=== PATIENT | male | born 1980 | race Caucasian/White ===

== ENCOUNTER 2019-12-10 02:59 | Emergency (ER) | payer OTHER, SELFPAY ==
[2019-12-10 03:00] VITALS: BP 149/72; PULSE 76; RESP 17; TEMP 36.7; O2SAT 98; BMI 38.3
--- NOTE | 2019-12-10 03:03 | ED.RN ---
CALLED FOR EKG PER RN REQUEST, PULLED OLD EKGS FOR
--- NOTE | 2019-12-10 03:29 | EKG12_ITS ---
Test Reason : CP Blood Pressure : / mmHG Vent. Rate : 078 BPM Atrial Rate : 078 BPM P-R Int : 158 ms QRS Dur : 082 ms QT Int : 356 ms P-R-T Axes : 033 -18 024 degrees QTc Int : 405 ms Normal sinus rhythm Moderate voltage criteria for LVH, may be normal variant Borderline ECG Confirmed by GAL CONNOLLY, DEBI ([id number]), supervising editor trailer RAFAEL GARLAND ([id number]) on 12/12/2019 9:00:56 AM Referred By: FLORENTIN Confirmed By:DEBI SANTO MD
--- NOTE | 2019-12-10 03:30 | ED.VISSUMM ---
- ER Visit Summary Date of Service: 12/10/19 Chief Complaint: Chest pain History of Present Illness: The patient is a 39 M who presents with chest pain that began this morning. Patient states his pain is sharp and over the left parasternal area. Patient states his pain last approximate 1 hour then resolved. Patient states his pain improved when he sat up. Patient admits to some diaphoresis with the pain. Patient denies any nausea or vomiting. Patient denies any shortness of breath. Patient denies any palpitations, lightheadedness, dizziness, or acid reflux. Patient is a diabetic but has no other cardiac risk factors. Physical Examination: Vital signs are stable. Patient is afebrile. Patient is in no acute distress. Oral mucosa is pink and moist. Neck is supple. Trachea is midline. There is no JVD noted. Heart was regular rate and rhythm. Lungs are clear and equal bilaterally. Abdomen is soft. Bowel sounds are normal. There is no tenderness. There is no rebound or guarding noted. Skin is warm dry. Cranial nerves II through XII are intact. There are no focal motor or sensory deficits noted. Extremities are intact. There is no calf tenderness or edema. Test Results: EKG shows normal sinus rhythm with a rate of 78. There are no acute ST or T wave changes. This was unchanged compared to previous EKG dated 11/16/2017. Portable chest x-ray was obtained. There is no acute cardiopulmonary process. CBC, basic metabolic profile, and troponin were obtained were all within normal limits. Emergency Department Course and Treatment: Patient was pain-free on arrival. Patient was given aspirin. Patient had no further episodes of chest pain. Patient has a HEART score of 1. Patient was advised that this is low risk for acute cardiac event. Patient was instructed to follow-up with his primary care physician in 5 to 7 days. Patient understood and was agreeable with the plan. All questions were answered. Disposition: Discharge home Impression: Chest pain This note was generated with [email or web address] dictation software. It may contain incorrect words, spelling, and punctuation that were not noted in review of the chart prior to signing ED Disposition - Plan for ED Patient: Disposition: Home or Assisted Living Diagnosis: Chest pain Instructions: CHEST PAIN, Uncertain Cause Referrals: Diego Ghotra DO [Primary Care Provider] - 3-5 Days
[2019-12-10] MEDS: Aspirin 81 MG TAB.CHEW 324 MG PO (03:33)
[2019-12-10 03:35] VITALS: O2SAT 98
[2019-12-10 03:36] LABS: Absolute Lymphocyte Count 3.43 X10^3/uL (0.83-4.51); Absolute Neutrophil Count 2.5 X10^3/uL (2.0-7.7); Basophil# 0.05 X10^3/uL; Basophil% 0.7 % (0-1); Eosinophils% 4.5 % (0-5); Hematocrit 40.5 % (40-54); Hemoglobin 13.5 g/dL (13.0-16.5); Lymphocyte # 3.43 X10^3/ul (4.0); Lymphocyte % 51.3 % (19-41); Mean Corp Hgb Conc 33.3 g/dL (32-36); Mean Corpuscular Hgb 28.8 pg (27.0-32.0); Mean Corpuscular Volume 86.5 fL (80-94); Mean Platelet Vol. 9.5 fl (6.2-12.0); Monocyte# 0.37 X10^3/uL; Monocyte% 5.5 % (0-10); NRBC Flagged by Analyzer 0 % (0-5); Neutrophil # 2.52 X10^3/uL (2.7-7.7); Neutrophil % 37.9 % (47-70); Platelet Count 240 K/mm3 (150-450); RBC Distribution Width CV 12.6 % (11.6-14.6); RBC Distribution Width SD 39.5 fl (35.1-43.9); Red Blood Count 4.68 M/mm3 (4.6-6.2); White Blood Count 6.7 K/mm3 (4.4-11.0)
--- NOTE | 2019-12-10 03:40 | RAD_ITS ---
HISTORY: CHEST PAIN EXAMINATION/TECHNIQUE: XR Chest 1 View: Portable COMPARISON: None FINDINGS: Cardiac telemetry leads in place. Shallow inspiration. Normal heart size. No vascular congestion, pleural effusion, or pulmonary infiltration. No pneumothorax. The bony thorax appears intact. RAD/Chest 1 View (Portable) IMPRESSION: No acute cardiopulmonary disease. at 0420 Reported and signed by: Hasmukh Justin MD Electronically Signed: Hasmukh Justin, at 4:28 EST Tel , Service support ,
[2019-12-10 03:49] LABS: Anion Gap 6 (5-15); BUN 19 mg/dL (7-18); BUN/Creat Ratio 24.5 RATIO (10-20); Calcium,Total 9.3 mg/dL (8.5-10.1); Chloride 107 mmol/L (98-107); Creatinine, Serum 0.78 mg/dL (0.70-1.30); EST Glomerular Filtration Rate 117 mL/min (>60); Est Glom Filt Rate - Afr Amer 142 mL/min (>60); Estimated Creatinine Clearance 138.18 ml/min; Glucose 105 mg/dL (74-106); Sodium Level 141 mmol/L (136-145)
[2019-12-10 04:39] VITALS: BP 130/62; PULSE 74; RESP 12; O2SAT 100; O2SAT 99
== END 2019-12-10 06:43 | disposition home or self-care (01) ==
PROVIDERS: Emergency Provider Emergency Medicine; PCP Family Medicine
DX: R07.9 Chest pain, unspecified (principal); E11.9 Type 2 diabetes mellitus without complications; E66.9 Obesity, unspecified
CPT/HCPCS: 71045; 80048; 84484; 85025; 93005; 99285; A4216

== ENCOUNTER 2022-12-30 20:10 | Inpatient (IN) | payer OTHER, SELFPAY ==
[2022-12-30 20:12] VITALS: BP 175/76; PULSE 107; RESP 16; TEMP 36.7; O2SAT 99; BMI 59.8
--- NOTE | 2022-12-30 20:31 | EX.ED.DYSGE1 ---
HPI History of Present Illness Chief Complaint: Cellulitis Informant: patient and EMS Narrative Narrative: Patient presents with pain and redness in the right lower extremity. He states he started having discomfort around lunchtime today, he states around 1700 or so there was no abnormal redness, and he presents here between [id number] in extreme pain and redness in his right medial thigh. Denies any injury. No fevers or chills. No chest pain or shortness of breath. States he is a diabetic and lost his left leg due to uncontrolled diabetes, but his sugars have been good lately, in the 100s today. He has some pre-existing superficial wounds on his right lower leg that he has been followed for not currently on any antibiotics. [facility] Medical History (Updated 12/30/22 @ 23:[address] Hiro Brown MD) Below-knee amputation of left lower extremity Charcot's joint Chronic anemia CKD (chronic kidney disease), stage III Diabetes mellitus type 2 in obese Diabetic neuropathy History of osteomyelitis HLD (hyperlipidemia) HTN (hypertension) Morbid obesity Home Medications Adrenal Supplement 1 cap PO DAILY 12/10/19 [History Last Taken Unknown] Cardio Supplement 1 combo PO DAILY 12/10/19 [History Last Taken Unknown] Chromium 2 tab PO BID 12/10/19 [History Last Taken Unknown] Elemental Zinc 1 tab PO DAILY 12/10/19 [History Last Taken Unknown] Magnesium 2 tab PO BID 12/10/19 [History Last Taken Unknown] Novolin 70/30 30 - 35 units SQ QHS 12/10/19 [History Last Taken Unknown] Pantothenic Acid 1 tab PO BID 12/10/19 [History Last Taken Unknown] Potassium 2 tab PO DAILY 12/10/19 [History Last Taken Unknown] cholecalciferol (vitamin D3) 50 mcg (2,000 unit) capsule 2,000 unit PO BID 12/10/19 [History Last Taken Unknown] lisinopril 5 mg tablet 20 mg PO DAILY 12/10/19 [History Last Taken Unknown] amlodipine 10 mg tablet 10 mg PO DAILY 12/30/22 [History Last Taken Unknown] furosemide 40 mg tablet 40 mg PO DAILY 12/30/22 [History Last Taken Unknown] hydralazine 25 mg tablet 25 mg PO BID 12/30/22 [History Last Taken Unknown] Allergy/AdvReac Type Severity Reaction Status Date / Time No Known Allergies Allergy Verified 12/30/22 20:14 Family History other Surgical History (Updated 12/30/22 @ 22:[address] Marline Wilhelm MD) History of surgery on lower extremity Status post left foot surgery Social History (Updated 12/30/22 @ 22:[address] Marline Wilhelm MD) household members: spouse Smoking Status: Former smoker how long ago did patient quit smoking: Quit ~ 15 years prior to current presentation. alcohol intake: never substance use type: does not use ROS ROS ED Constitutional Constitutional ED: Denies chills or fever(s) Eyes Eyes: Denies change in vision or diplopia ENT ENT ED: Denies rhinorrhea or sore throat Cardiovascular Cardiovascular: Denies chest pain or palpitations Respiratory/Chest Respiratory/Chest: Denies cough or dyspnea Gastrointestinal Gastrointestinal: Denies abdominal pain, diarrhea, nausea or vomiting Genitourinary Genitourinary ED: Denies dysuria or hematuria Musculoskeletal Musculoskeletal: Reports extremity pain; Denies back pain or neck pain Integumentary Reports as per HPI, rash and wounds; Denies abscess Neurologic Neurologic: Denies headache(s), paresthesias or weakness Psychiatric Psychiatric: Denies anxiety or suicidal thoughts EXAM Physical Exam Const Vital Signs: 12/30/22 20:12 12/30/22 21:02 12/30/22 22:11 Temperature 98.1 F Temperature Source Oral Pulse Rate 107 H 108 H Respiratory Rate 16 16 Blood Pressure 175/76 H Blood Pressure Mean 109 Pulse Ox 99 95 Oxygen Delivery Method Room Air Room Air Room Air 12/30/22 23:06 12/30/22 23:45 Temperature 97.9 F 98 F Temperature Source Oral Oral Pulse Rate 109 H 101 H Respiratory Rate 19 H 19 H Blood Pressure 165/70 H 162/67 H Blood Pressure Mean 101 98 Pulse Ox 96 93 Oxygen Delivery Method Room Air Room Air Positive well nourished, well developed and obese General Appearance ED: well developed and NAD Nutritional Appearance: obese HEENT Reports moist mucous membranes normocephalic and atraumatic Eyes PERRL and EOMs intact bilaterally Neck full ROM and supple Resp normal respiratory effort and clear to auscultation bilaterally Cardio regular rate, regular rhythm and no murmurs Rate: tachycardic GI non-tender and non-distended Auscultation: normoactive bowel sounds Palpation: soft Back/Spine no CVA tenderness General Back: other FROM Extremity Extremity Narrative: Limited range of motion right lower extremity joints due to pain especially of the knee and thigh/hip. No significant pain with passive range of motion of these joints, short arc. Status post left BKA. Erythema both medial thighs, symmetric appearing, but extremely tender on the right whereas there is no tenderness on the left, blanching bilaterally. No petechia or purpura. Several superficial open wounds that do not progress to the dermis on the right lower leg, both laterally and posteriorly. Medially there is no wound but remnants of 1 that appears to have been healing. Much of this is tender but not as tender as the right medial thigh. No subcutaneous emphysema palpable. However obesity and edema in the right lower extremity limb at this evaluation. There is no necrotic tissue or other abnormal discoloration. Brisk cap refill all toes and palpable dorsalis pedis pulse. General Extremety ED: Yes edema and tenderness; Negative for pulses abnormal General Extremity: edema bilateral lower extremity Details: moderate (w/ peau d'orange appearance of tissues especially in thighs bilaterally); Negative for pulses abnormal Neuro oriented x3, CN's II-XII intact bilaterally and no sensory deficits noted Sensorium / Orientation: awake and alert Motor Exam: strength 5/5 throughout Skin Skin Narrative: Bilateral medial thigh erythema, but very tender on the right. No bullae in this area or petechia or purpura. There superficial wounds right lower leg see above. Not able to feel for any inguinal lymphadenopathy due to abdominal and leg obesity and pannus presence, also with peau d'orange appearance without tenderness. MDM MDM MDM Narrative Medical decision making narrative: Concern is for cellulitis here. He is very tender. There is no palpable subcutaneous emphysema or signs of necrotic tissue. The wounds more distal to this appear chronic and the patient indicates they are, they also do not appear to look bad or necrotic. My concern is how quickly the redness and pain came on and how severe it is. Necrotizing fasciitis was therefore considered, and initially I ordered a septic work-up with blood cultures and treated the patient empirically with Zosyn as well as pain medication. X-rays of the affected areas were obtained, 5 views of the right femur and 3 views of the right tib/fib both on my interpretation show no acute bony abnormalities or subcutaneous gas. Radiology in agreement. I reviewed his labs, he does not have a leukocytosis, leftward shift/bandemia, nor does he have an elevated lactic acid. His blood sugars a little elevated to 88, and he has new renal insufficiency, but the last labs that he had which I reviewed, were in 2019. I reevaluated him clinically. 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 I do not think there is any clear indication at this time for emergent surgical debridement, but the patient is in pain out of proportion to his labs and the exam, sore in order to further evaluate for the possibility of early necrotizing fasciitis, hospitalist and I decided it would be best to obtain a CT of his right lower extremity; this was performed without contrast because of his renal function. I viewed the images, it does appear to be consistent with cellulitis and I see no evidence for gas production. I reviewed the radiologist's interpretation, he is in agreement. Patient did develop some nausea so we treated him with some Zofran. Plan is for admission for further treatment and evaluation. Remained clinically and hemodynamically stable, so after discussion with hospitalist we will admit him to the PCU for close noncritical-care repeat evaluations. History & Record Review Discussion w/independent historian: Patient and Significant other Lab Data Attestation: I reviewed the patient's lab results. Labs: Laboratory Results - last 24 hr 12/30/22 12/30/22 12/30/22 20:40 20:40 20:40 WBC 8.2 RBC 3.51 L Hgb 10.3 L Hct 31.2 L MCV 88.9 MCH 29.3 MCHC 33.0 RDW Std Deviation 43.1 RDW Coeff of Mayra 13.2 Plt Count 387 MPV 9.0 Immature Gran % (Auto) 0.100 Neut % (Auto) 71.5 H Lymph % (Auto) 19.0 [place] % (Auto) 6.0 Eos % (Auto) 2.9 Baso % (Auto) 0.5 Absolute Neuts (auto) 5.9 Absolute Lymphs (auto) 1.56 Nucleated RBC % 0 PT 12.4 INR 1.0 APTT 30.8 Sodium 140 Potassium 5.1 Chloride 110 H Carbon Dioxide 23.0 Anion Gap 7 BUN 43 H Creatinine 2.09 H Estim Creat Clear Calc 36.68 Est GFR (MDRD) Af Amer 45 L Est GFR (MDRD) Non-Af 37 L BUN/Creatinine Ratio 20.6 H Glucose 288 H Lactic Acid Calcium 8.2 L Magnesium Total Bilirubin 0.20 AST 20 ALT 28 Alkaline Phosphatase 77 Total Creatine Kinase 204 Total Protein 5.7 L Albumin 2.0 L Globulin 3.7 Albumin/Globulin Ratio 0.5 L Urine Color Urine Clarity Urine pH Ur Specific [place] Urine Protein Urine Glucose (UA) Urine Ketones Urine Occult Blood Urine Nitrite Urine Bilirubin Urine Urobilinogen Ur Leukocyte Esterase Urine RBC Urine WBC Ur Squamous Epith Cells Urine Bacteria Urine Mucus 12/30/22 12/30/22 12/30/22 20:40 20:40 21:00 WBC RBC Hgb Hct MCV MCH MCHC RDW Std Deviation RDW Coeff of Mayra Plt Count MPV Immature Gran % (Auto) Neut % (Auto) Lymph % (Auto) [place] % (Auto) Eos % (Auto) Baso % (Auto) Absolute Neuts (auto) Absolute Lymphs (auto) Nucleated RBC % PT INR APTT Sodium Potassium Chloride Carbon Dioxide Anion Gap BUN Creatinine Estim Creat Clear Calc Est GFR (MDRD) Af Amer Est GFR (MDRD) Non-Af BUN/Creatinine Ratio Glucose Lactic Acid < 0.1 L Calcium Magnesium 3.9 H Total Bilirubin AST ALT Alkaline Phosphatase Total Creatine Kinase Total Protein Albumin Globulin Albumin/Globulin Ratio Urine Color Yellow Urine Clarity Clear Urine pH 7.0 Ur Specific [place] 1.010 Urine Protein 500 H Urine Glucose (UA) 250 H Urine Ketones Negative Urine Occult Blood 10 H Urine Nitrite Negative Urine Bilirubin Negative Urine Urobilinogen Normal Ur Leukocyte Esterase Negative Urine RBC 0-5 SEEN Urine WBC 0-5 SEEN Ur Squamous Epith Cells 0-5 SEEN Urine Bacteria 1+ Urine Mucus 0 SEEN Radiography Diagnostic Testing: Clinical Impression(s) from Imaging Studies Femur X-Ray 12/30/22 21:15 IMPRESSION: No acute findings. Electronically Signed: Alejandro Schmidt MD at 21:52 EST , Tibia/Fibula X-Ray 12/30/22 21:15 IMPRESSION: No acute bony abnormality. Electronically Signed: Alejandro Schmidt MD at 21:51 EST , Rhythm Strip Rhythm Strip: Sinus Tach Rate: 110 Ectopy: None EKG Initial EKG: Attestation: I personally reviewed and interpreted this EKG as follows: Interpretation: No Acute Injury Pattern and Sinus Tachycardia (Otherwise normal) Discharge Plan Dx/Rx/DC Orders Clinical Impression: Cellulitis of right lower extremity without foot, RADHA (acute kidney injury), Hyperglycemia due to type 2 diabetes mellitus Disposition Disposition: Acute Care Hospital [facility]
[2022-12-30] MEDS: Morphine 4 MG/ML Syringe IV (20:42)
[2022-12-30 20:51] LABS: Absolute Lymphocyte Count 1.56 X10^3/uL (0.83-4.51); Absolute Neutrophil Count 5.9 X10^3/uL (2.0-7.7); Basophil# 0.04 X10^3/uL; Basophil% 0.5 % (0-1); Eosinophil# 0.24 X10^3/uL; Eosinophils% 2.9 % (0-5); Hematocrit 31.2 % (40-54); Hemoglobin 10.3 g/dL (13.0-16.5); Lymphocyte # 1.56 X10^3/ul (0.83-4.51); Mean Corpuscular Hgb 29.3 pg (27.0-32.0); Mean Corpuscular Volume 88.9 fL (80-94); Monocyte# 0.49 X10^3/uL; NRBC Flagged by Analyzer 0 % (0-5); Neutrophil # 5.86 X10^3/uL (2.7-7.7); Neutrophil % 71.5 % (47-70); Platelet Count 387 K/mm3 (150-450); RBC Distribution Width CV 13.2 % (11.6-14.6); RBC Distribution Width SD 43.1 fl (35.1-43.9); Red Blood Count 3.51 M/mm3 (4.6-6.2); White Blood Count 8.2 K/mm3 (4.4-11.0)
[2022-12-30 21:00] LABS: Prothrombin Time (Protime)PT. 12.4 SECONDS (11.7-14.9)
[2022-12-30 21:01] LABS: Partial Thromboplast Time 30.8 Seconds (24.1-36.2)
[2022-12-30 21:09] LABS: ALB/GLOB Ratio 0.5 RATIO (0.9-2.4); AST(SGOT) 20 U/L (15-37); Alanine Aminotransfer ALT/SGPT 28 U/L (16-61); Alkaline Phosphatase 77 U/L (45-117); Anion Gap 7 (5-15); BUN 43 mg/dL (7-18); BUN/Creat Ratio 20.6 RATIO (10-20); CPK Total, Creatine Kinase 204 U/L (39-308); Calcium,Total 8.2 mg/dL (8.5-10.1); Chloride 110 mmol/L (98-107); Creatinine, Serum 2.09 mg/dL (0.70-1.30); EST Glomerular Filtration Rate 37 mL/min (>60); Est Glom Filt Rate - Afr Amer 45 mL/min (>60); Estimated Creatinine Clearance 36.68 ml/min; Globulin 3.7 g/dL (2.2-4.2); Glucose 288 mg/dL (74-106); Potassium 5.1 mmol/L (3.5-5.1); Protein, Total 5.7 g/dL (6.4-8.2); Sodium Level 140 mmol/L (136-145)
[2022-12-30 21:15] LABS: Mucous, Urine 0 SEEN /hpf (<or=2+)
--- NOTE | 2022-12-30 21:15 | RAD_ITS ---
INDICATION: infection/pain EXAMINATION/TECHNIQUE: X-RAY - RIGHT XR Tibia/Fibula 2 Views 2 VIEWS COMPARISON: None. FINDINGS: SOFT TISSUES: No soft tissue swelling or gas. No radiopaque foreign body. Vascular calcifications. BONES/JOINTS: No acute fracture. Joint spaces anatomically aligned. No sclerotic or destructive changes observed. RAD/Tibia & Fibula 2 Views IMPRESSION: No acute bony abnormality. Electronically Signed: Alejandro Schmidt MD at 21:51 EST ,
--- NOTE | 2022-12-30 21:15 | RAD_ITS ---
INDICATION: infection/pain EXAMINATION/TECHNIQUE: X-RAY - RIGHT XR Femur Min 2 Views 2 VIEWS COMPARISON: None. FINDINGS: SOFT TISSUES: No soft tissue swelling or gas. No radiopaque foreign body. BONES/JOINTS: No acute fracture. Joint spaces anatomically aligned. No sclerotic or destructive changes observed. RAD/Femur Min 2 Views IMPRESSION: No acute findings. Electronically Signed: Alejandro Schmidt MD at 21:52 EST ,
[2022-12-30 21:17] LABS: Color, Urine Yellow (Yellow); Glucose, Dipstick 250 mg/dl (Normal); Ketone-Dipstick Negative (Negative); Leukocyte Esterase-Dipstick Negative /ul (Negative); Nitrite-Dipstick Negative (Negative); Occult Blood-Urine 10 /ul (Negative); Protein-Dipstick 500 mg/dl (Negative); Urine Bilirubin Dipstick Negative (Negative); Urine Clarity Clear (Clear); Urine Urobilinogen Normal (Normal)
[2022-12-30] MEDS: Clindamycin 900 MG/50 ML BAG 75 MG IV (21:40)
[2022-12-30 22:06] LABS: Lactic Acid < 0.1 mmol/L (0.4-1.9)
[2022-12-30 22:11] VITALS: PULSE 108; RESP 16; O2SAT 95
[2022-12-30] MEDS: Ondansetron 4 MG/2 ML Vial IV (22:22)
--- NOTE | 2022-12-30 22:32 | CT_ITS ---
INDICATION: infection EXAMINATION: CT BONE - CT Lower Extremity W/O Contrast Injection TECHNIQUE: Helically acquired images were obtained of the right lower extremity. 2-D reformats were performed by the technologist. A radiation dose optimization technique was used for this scan. IV Contrast dosage and agent: None. COMPARISON: None. FINDINGS: SOFT TISSUES: Diffuse circumferential subcutaneous soft tissue edema without well-defined fluid collection or gas formations.. No radiopaque foreign body. BONES/JOINTS: No acute fracture or subluxation. Preservation of the joint spaces. No sclerotic or destructive changes. CT/Extremity Lower without Contra IMPRESSION: Nonspecific and diffuse subcutaneous soft tissue edema/cellulitis of the right lower extremity without gas formation or well-defined abscess.. Necrotizing fasciitis not excluded. Electronically Signed: Alejandro Schmidt MD at 0:47 EST ,
--- NOTE | 2022-12-30 22:33 | PCM.HP.STD ---
HPI - General General Date of Admission: 12/30/22 Date of Service: 12/30/22 Chief Complaint: RLE Cellulitis, chills. HPI Narrative The patient is a 42 y/o M w/ PMHx: Former tobacco use, Diabetes mellitus type II with diabetic neuropathy, Charcot's joint, Morbid Obesity, Hx Diabetic foot infection with Hx osteomyelitis who presents to the [facility] ED on 12/30/22 with history onset right lower extremity discomfort starting around noon with the pain worsening at approximately 8 PM with onset of redness specifically noted in his right medial thigh with no associated fevers or chills progressively worsening with ongoing superficial wounds to the right lower extremity prompting ED evaluation. Patient does report that his blood sugars have been improved as of late and usually in the 100 range. He currently reports 10/10 pain worse with any palpation. In the ED upon evaluation he does report having mild nausea and sensation that he might need to throw up. He is laying on his side initially complaining of back spasms and his is massaging his back which seems to be helping. Work-up in the ED included T98.1, heart rate 107, BP 175/76, respiratory rate 16, 99% on room air, CBC with WBC 8.2, hemoglobin 10.3, MCV 88.9, platelet 327 without marked shift, unremarkable coags, CMP with chloride 110, BUN/creatinine 43/2.09, glucose 288, calcium 8.2, hepatic profile not marked appearing, total creatinine kinase 204, urinalysis pending upon requested evaluation of patient, lactic acid <0.1, plain film of the right lower extremity femur with no acute findings and no evidence of any soft tissue swelling or gas, plain film of the right lower extremity tibia/fibula with no acute bony abnormality or any evidence of soft tissue swelling or gas, blood culture x2 pending per ED, urine culture pending per ED. in the ED patient ministered Zosyn as well as clindamycin and morphine 4 mg IV x1. Discussed appearance of patient with Dr. Brown and agreed CT RLE appropriate given severity of his clinical appearance to assure no surgical needs which is pending upon evaluation. [facility] Medical History (Updated 12/30/22 @ 21:[address] Hiro Brown MD) Below-knee amputation of left lower extremity Charcot's joint Chronic anemia CKD (chronic kidney disease), stage III Diabetes mellitus type 2 in obese Diabetic neuropathy History of osteomyelitis HLD (hyperlipidemia) HTN (hypertension) Morbid obesity Home Medications Adrenal Supplement 1 cap PO DAILY 12/10/19 [History Last Taken Unknown] Cardio Supplement 1 combo PO DAILY 12/10/19 [History Last Taken Unknown] Chromium 2 tab PO BID 12/10/19 [History Last Taken Unknown] Elemental Zinc 1 tab PO DAILY 12/10/19 [History Last Taken Unknown] Magnesium 2 tab PO BID 12/10/19 [History Last Taken Unknown] Novolin 70/30 30 - 35 units SQ QHS 12/10/19 [History Last Taken Unknown] Pantothenic Acid 1 tab PO BID 12/10/19 [History Last Taken Unknown] Potassium 2 tab PO DAILY 12/10/19 [History Last Taken Unknown] cholecalciferol (vitamin D3) 50 mcg (2,000 unit) capsule 2,000 unit PO BID 12/10/19 [History Last Taken Unknown] lisinopril 5 mg tablet 20 mg PO DAILY 12/10/19 [History Last Taken Unknown] amlodipine 10 mg tablet 10 mg PO DAILY 12/30/22 [History Last Taken Unknown] furosemide 40 mg tablet 40 mg PO DAILY 12/30/22 [History Last Taken Unknown] hydralazine 25 mg tablet 25 mg PO BID 12/30/22 [History Last Taken Unknown] Allergy/AdvReac Type Severity Reaction Status Date / Time No Known Allergies Allergy Verified 12/30/22 20:14 other (Patient denies any marked maternal or paternal family Hx including HD, CM, CA, CVA.) Surgical History (Updated 12/30/22 @ 22:[address] Marline Wilhelm MD) History of surgery on lower extremity Status post left foot surgery Social History (Updated 12/30/22 @ 22:[address] Marline Wilhelm MD) household members: spouse Smoking Status: Former smoker how long ago did patient quit smoking: Quit ~ 15 years prior to current presentation. alcohol intake: never substance use type: does not use ROS ROS Narrative Admission Review of Systems: CONSTITUTIONAL: No weight loss, fever, + chills, weakness or fatigue. HEENT: Eyes: No visual loss, blurred vision, double vision or yellow sclerae. Ears, Nose, Throat: No hearing loss, sneezing, congestion, runny nose or sore throat. SKIN: + Bilateral lower extremity redness and irritation however right significantly worse, macerated, right lower extremity superficial diabetic ulcerations, status post left BKA. CARDIOVASCULAR: No chest pain, chest pressure or chest discomfort, palpitations, edema, orthopnea, syncopal events. RESPIRATORY: No shortness of breath, cough or sputum, wheezing, hemoptysis. GASTROINTESTINAL: + anorexia, nausea, No vomiting or diarrhea, abdominal pain, melena, BRBPR. GENITOURINARY: No dysuria, frequency, urgency or retention. NEUROLOGICAL: No headache, dizziness, syncope, paralysis, ataxia, numbness or tingling in the extremities, focal weakness, change in bowel or bladder control, seizure. MUSCULOSKELETAL: + muscle, back pain, joint pain or stiffness. HEMATOLOGIC: + anemia, bleeding or bruising. LYMPHATICS: No enlarged nodes. No history of splenectomy. PSYCHIATRIC: No history of depression or anxiety. ENDOCRINOLOGIC: + reports of sweating, cold or heat intolerance. No polyuria or polydipsia. ALLERGIES: No history of asthma, hives, eczema or rhinitis. Vital Signs Vital Signs Vital Signs: 12/30/22 20:12 12/30/22 21:02 Temperature 98.1 F Temperature Source Oral Pulse Rate 107 H Respiratory Rate 16 Blood Pressure 175/76 H Blood Pressure Mean 109 Pulse Ox 99 Oxygen Delivery Method Room Air Room Air Weight Weight: 337 lb 8.443 oz Body Mass Index (BMI) 59.8 Physical Exam Narrative Physical Examination: General: Awake, alert, oriented x 3 and cooperative, laying in the ED bed, uncomfortable appearing, appears to be having chills. Skin: Normal color, normal turgor, no icterus, no cyanosis except for significant intertrigo in the folds with morbidly obese habitus as well as significant bilateral inner thigh redness more severe to the right lower extremity with significant maceration and tenderness to even superficial touch, warm. HEENT: AT/NC, EOMI, PERRLA, dry MM, no carotid bruits or JVD noted; however, very thickened neck makes evaluation difficult. Lungs: Significantly diminished, distant, mildly increased respiratory rate but no distress, habitus makes evaluation difficult, no rales, ronchi or wheezing. Heart: Tachycardic with regular rhythm; no gallop, rub audible. Abdomen: Soft, morbidly obese, notable intertrigo, no obvious tenderness to palpation, difficult to assess distention given habitus, very distant bowel sounds, no obvious HSM but habitus makes this a very difficult exam. Extremities: No cyanosis, no clubbing, see skin, chronic right lower extremity swelling, status post BKA. Neurological: Patient awake, alert, oriented as noted, cognitive function intact; pupils equally reactive to light and accommodation, cranial nerves II-XII grossly normal, moving all 4 extremities except extremely limited right lower extremity movement secondary to pain elicited, strength accordingly moderately to severely globally decreased. Psychiatric: Affect appears uncomfortable, ill-appearing, no acute evidence of depressive or anxiety feelings. Results Lab / Micro Data Result Diagrams: 12/30/22 20:40 12/30/22 20:40 Labs: Laboratory Results - last 24 hr 12/30/22 20:40: WBC 8.2, RBC 3.51 L, Hgb 10.3 L, Hct 31.2 L, MCV 88.9, MCH 29.3, MCHC 33.0, RDW Std Deviation 43.1, RDW Coeff of Mayra 13.2, Plt Count 387, MPV 9.0, Immature Gran % (Auto) 0.100, Neut % (Auto) 71.5 H, Lymph % (Auto) 19.0, [place] % (Auto) 6.0, Eos % (Auto) 2.9, Baso % (Auto) 0.5, Absolute Neuts (auto) 5.9, Absolute Lymphs (auto) 1.56, Nucleated RBC % 0 12/30/22 20:40: PT 12.4, INR 1.0, APTT 30.8 12/30/22 20:40: Sodium 140, Potassium 5.1, Chloride 110 H, Carbon Dioxide 23.0, Anion Gap 7, BUN 43 H, Creatinine 2.09 H, Estim Creat Clear Calc 36.68, Est GFR (MDRD) Af Amer 45 L, Est GFR (MDRD) Non-Af 37 L, BUN/Creatinine Ratio 20.6 H, Glucose 288 H, Calcium 8.2 L, Total Bilirubin 0.20, AST 20, ALT 28, Alkaline Phosphatase 77, Total Creatine Kinase 204, Total Protein 5.7 L, Albumin 2.0 L, Globulin 3.7, Albumin/Globulin Ratio 0.5 L 12/30/22 20:40: Lactic Acid < 0.1 L Rhythm Strip Rhythm Strip: Sinus Tach Rate: 110 Ectopy: None Radiology Impression Femur X-Ray 12/30/22 21:15 IMPRESSION: No acute findings. Electronically Signed: Alejandro Schmidt MD at 21:52 EST , Tibia/Fibula X-Ray 12/30/22 21:15 IMPRESSION: No acute bony abnormality. Electronically Signed: Alejandro Schmidt MD at 21:51 EST , Assessment & Plan Assessment/Plan (1) Cellulitis of right lower extremity without foot: PLAN: Plan The patient is a 42 y/o M w/ PMHx: Former tobacco use, Diabetes mellitus type II with diabetic neuropathy, Charcot's joint, Morbid Obesity, Hx Diabetic foot infection with Hx osteomyelitis who presents to the [facility] ED on 12/30/22 with history onset right lower extremity discomfort starting around noon with the pain worsening at approximately 8 PM with onset of redness specifically noted in his right medial thigh with no associated fevers or chills progressively worsening with ongoing superficial wounds to the right lower extremity prompting ED evaluation. #1. RLE Extremity Cellulitis complicated by underlying diabetes mellitus type II with chronic diabetic right lower extremity wounds/ulcerations: Will admit to PCU given concerns for rapidity of erythema spread per patient history until CT RLE demonstrates any acute surgically emergent findings then may necessitate higher level of care, if no acute concerning findings on CT RLE then would plan to maintain on IV vancomycin and Zosyn, if any onset of drainage from his open regions will obtain wound culture and wound MRSA screen but upon initial evaluation there is no obvious drainage, plan repeat CBC in AM, continue affected extremity elevation above heart when seated and in bed, monitor erythema outline with VS checks, would also plan to place on heparin drip pending DVT US assesment. #2. RADHA versus Chronic Kidney Disease Stage III, unclear subtype: Admission BUN/Cr 43/2.09, baseline renal function prior had been primarily 0.7-0.8 however this is remote and last noted creatinine 12/10/2019 0.78 thus unclear if this is patient's new baseline or if this is a component of acute kidney injury, will judiciously hydrate, hold nephrotoxic regimen in the interim, obtain FeNa, obtain renal US and repeat BMP in AM. #3. Chronic normocytic anemia: Admission hemoglobin 10.3, baseline prior appears 12-13, will obtain iron panel, ferritin, guaiac, vitamin B12 and folic acid to be cautious, repeat CBC in AM. #4. Diabetes mellitus type II with chronic neuropathy: Hold oral home regimen, continue home insulin regimen, ADA diet, accu checks w/ ISS, hemoglobin A1c pending, nutrition consulted for education and teaching. #5. Hx Charcot joint left ankle with history of prior left foot osteomyelitis now status post left BKA: Patient previously evaluated by Dr. Michael, podiatry with noted 11/16/2017 I&D left diabetic foot wound with an open biopsy of the left fibula which was notable on pathology for rare Staphylococcus with near morales sensitivity aside benzylpenicillin resistant with eventual required left BKA, encourage continued outpatient follow-up and evaluation. #6. Hypertension: Continue home regimen including hydralazine, amlodipine, PRN hydralazine. Temporarily holding lisinopril and Lasix given significant creatinine increased from prior noted with last creatinine noted 12/10/2019 0.78 thus certainly could be patient more chronic renal function at this time but unclear. #7. Hyperlipidemia: Not on statin therapy, defer to outpatient. #8. Former tobacco use: Encourage continued tobacco cessation. #9. Morbid Obesity: Weight loss and lifestyle changes encouraged, nutrition consulted. #10. DVT prophylaxis: Heparin drip pending RLE DVT US. #11. CODE status: Patient does not have healthcare power of substance abuse counselor nor living will in place. present for current discussions. Discussed CODE status at length including difference between FULL code, DNR-CCA and DNR-CC status. Following discussions about the differences in these status, requested very specifically that he be allowed to pass naturally if at this time therefore CODE STATUS DNR CCA, no intubation. Advanced Care Planning Face to Face Time: 16 minutes. Admission Evaluation Time spent evaluating chart, patient history, patient evaluation, care planning and discussion with specialists: 75 minutes. Charges/Coding Visit Charges Inpatient E&M: 37664 Init Hosp L3 Procedures Hospitalists Procedures: 79349 Advncd Care Plan 30 Min
[2022-12-30 23:06] VITALS: BP 165/70; PULSE 109; RESP 19; TEMP 36.6; O2SAT 96
[2022-12-30 23:31] LABS: Bacteria 1+ /hpf (None Seen); Red Blood Cells-Urine 0-5 SEEN /hpf (0-5); Squamous Epithelial Cells - UA 0-5 SEEN /hpf (0-5); White Blood Cells 0-5 SEEN /hpf (0-5)
[2022-12-30 23:35] LABS: Magnesium 3.9 mg/dL (1.6-2.6)
[2022-12-30 23:45] VITALS: BP 162/67; PULSE 101; RESP 19; TEMP 36.6; O2SAT 93
[2022-12-31] VITALS (11 sets, daily range): BP systolic 125–156; BP diastolic 58–89; PULSE 69–106; RESP 17–22; TEMP 36.6–38.8; O2SAT 92–97; BMI 51.5
[2022-12-31] MEDS: 0.9% Normal Saline 1,000 ML 150 ML IV ×3 (01:40→17:51)
[2022-12-31] MEDS: HEPARIN/D5w 25,000 UNITS 25,000 UNITS/250 ML IV.SOLN. 18 UNITS CONT INF (01:41)
[2022-12-31] MEDS: Heparin Injection (Vial) 5,000 UNIT/ML VIAL 11000 UNIT IV (01:44)
[2022-12-31] MEDS: Nystatin Powder 15gm Bottle 1 APPLIC TOPICAL ×4 (01:45→22:24)
[2022-12-31] MEDS: Clindamycin 900 MG/50 ML BAG 75 MG IV ×3 (04:54→22:06)
--- NOTE | 2022-12-31 04:54 | PCM.RX.CS ---
Consult Pharmacy has been consulted to manage selected antiobiotic: Vancomycin Type of Consult: New start Suspected Infection: Skin/Soft tissue Labs: Sodium 140 mmol/L (136-145) 12/30/22 20:40 Potassium 5.1 mmol/L (3.5-5.1) 12/30/22 20:40 Chloride 110 mmol/L (98-107) H 12/30/22 20:40 Carbon Dioxide 23.0 mmol/L (21.0-32.0) 12/30/22 20:40 Anion Gap 7 (5-15) 12/30/22 20:40 BUN 43 mg/dL (7-18) H 12/30/22 20:40 Creatinine 2.09 mg/dL (0.70-1.30) H 12/30/22 20:40 Est GFR (MDRD) Af Amer 45 mL/min (>60) L 12/30/22 20:40 Est GFR (MDRD) Non-Af 37 mL/min (>60) L 12/30/22 20:40 BUN/Creatinine Ratio 20.6 RATIO (10-20) H 12/30/22 20:40 Glucose 288 mg/dL (74-106) H 12/30/22 20:40 Goal Trough: 15-20 mcg/mL Pharmacy Plan for Drug Dosing: Pharmacy Service will continue to monitor and adjust dosing as required. Medications Vancomycin HCl 1,500 mg/ (Sodium Chloride) 530 mls @ 250 mls/hr IV Q12H KATY Discontinued Medications Vancomycin HCl 2,000 mg/ (Sodium Chloride) 540 mls @ 250 mls/hr IV X1 ONE Stop: 12/31/22 03:39 Last Admin: 12/31/22 02:40 Dose: 250 mls/hr Follow-Up Labs: Trough Vancomycin Labs to be done on [date and time ordered]: 01/01 @ 1400
--- NOTE | 2022-12-31 05:55 | VDLE_ITS ---
Reason For Study: LEG PAIN RIGHT LEFT GSV is normal. CFV is compressible, spontaneous, phasic, CFV is compressible, spontaneous, phasic, competent, and demonstrates normal competent and demonstrates normal augmentation. augmentation. FV is compressible, spontaneous, phasic, competent and demonstrates normal augmentation. POP V is compressible, spontaneous, phasic, competent and demonstrates normal augmentation. T/P Trunk is compressible. PTV is compressible. Unable to visualize Rt Lary V. Procedure This is a venous duplex using B-mode, color flow and spectral Doppler. Exam performed portable in patient room. Limited views were obtained due to swelling, body habitus, wounds and patient's inability to tolerate compressions. A preliminary report was called and/or faxed to [facility]. VL/Venous Duplex US, Unilateral Interpretation Summary There is no evidence of right lower extremity deep vein thrombosis. Right great saphenous vein appears patent and compressible segmentally. Right peroneal vein could not be i dentified Technically limited examination secondary to right lower extremity swelling and body habitus and wounds and inability to tolerate compression Normal flow patterns left common femoral vein Ordering Physician: Marline Wilhelm Referring Physician: Diego Ghotra Performed By: Raul Cotter RVT
--- NOTE | 2022-12-31 06:20 | NURSING ---
Pts primary rn aware of positive blood culture results of gram negative rods in 1 out of 4 bottles.
[2022-12-31] MEDS: Insulin Lispro 100 UNIT/ML INSULN.PEN SC ×4 (06:31→22:11)
[2022-12-31 07:10] LABS: Bedside Glucose 277 mg/dL (74-106)
[2022-12-31 07:59] LABS: Absolute Lymphocyte Count 0.57 X10^3/uL (0.83-4.51); Absolute Neutrophil Count 8.6 X10^3/uL (2.0-7.7); Basophil# 0.02 X10^3/uL; Basophil% 0.2 % (0-1); Hematocrit 27.8 % (40-54); Hemoglobin 8.8 g/dL (13.0-16.5); Lymphocyte # 0.57 X10^3/ul (0.83-4.51); Lymphocyte % 5.9 % (19-41); Mean Corp Hgb Conc 31.7 g/dL (32-36); Mean Corpuscular Hgb 28.9 pg (27.0-32.0); Mean Corpuscular Volume 91.4 fL (80-94); Monocyte# 0.41 X10^3/uL; Monocyte% 4.2 % (0-10); NRBC Flagged by Analyzer 0 % (0-5); Neutrophil # 8.63 X10^3/uL (2.7-7.7); Neutrophil % 89.4 % (47-70); POSITIVE DIFFERENTIAL YES; Platelet Count 268 K/mm3 (150-450); RBC Distribution Width CV 13.3 % (11.6-14.6); RBC Distribution Width SD 44.8 fl (35.1-43.9); Red Blood Count 3.04 M/mm3 (4.6-6.2); White Blood Count 9.7 K/mm3 (4.4-11.0)
[2022-12-31 08:10] LABS: Differential Indicated SCAN CRITERIA MET
--- NOTE | 2022-12-31 08:21 | PCM.PN.HOSP ---
Reason for Visit Reason for Visit: Diagnoses Cellulitis of right lower limb (12/30/22) Subjective Subjective Patient is a 50-year-old gentleman with BMI of 51 who presented with pain and redness involving the medial aspect of the right thigh. An assessment of right lower extremity cellulitis made admitted for further inpatient manage Objective Data Objective Data Vital Signs: Vital Signs Temp Pulse Resp BP Pulse Ox O2 Del Method 98.2 F 69 20 H 127/64 H 94 Room Air 12/31/22 06:00 12/31/22 06:00 12/31/22 06:00 12/31/22 06:00 12/31/22 06:00 12/31/22 06:00 Oxygen Delivery Method Room Air Weight: 145 kg Body Mass Index (BMI) 51.5 Intake & Output: Intake and Output for Last 24 Hours 12/29/22 12/30/22 12/31/22 23:59 23:59 23:59 Intake Total 150 / 150 590 / 590 Output Total 0 / 0 Balance 150 / 150 590 / 590 Lab / Micro Data Result Diagrams: 12/31/22 07:45 12/31/22 07:45 Labs: Laboratory Results - last 24 hr 12/30/22 20:40: WBC 8.2, RBC 3.51 L, Hgb 10.3 L, Hct 31.2 L, MCV 88.9, MCH 29.3, MCHC 33.0, RDW Std Deviation 43.1, RDW Coeff of Mayra 13.2, Plt Count 387, MPV 9.0, Immature Gran % (Auto) 0.100, Neut % (Auto) 71.5 H, Lymph % (Auto) 19.0, [place] % (Auto) 6.0, Eos % (Auto) 2.9, Baso % (Auto) 0.5, Absolute Neuts (auto) 5.9, Absolute Lymphs (auto) 1.56, Nucleated RBC % 0 12/30/22 20:40: PT 12.4, INR 1.0, APTT 30.8 12/30/22 20:40: Sodium 140, Potassium 5.1, Chloride 110 H, Carbon Dioxide 23.0, Anion Gap 7, BUN 43 H, Creatinine 2.09 H, Estim Creat Clear Calc 36.68, Est GFR (MDRD) Af Amer 45 L, Est GFR (MDRD) Non-Af 37 L, BUN/Creatinine Ratio 20.6 H, Glucose 288 H, Calcium 8.2 L, Total Bilirubin 0.20, AST 20, ALT 28, Alkaline Phosphatase 77, Total Creatine Kinase 204, Total Protein 5.7 L, Albumin 2.0 L, Globulin 3.7, Albumin/Globulin Ratio 0.5 L 12/30/22 20:40: Lactic Acid < 0.1 L 12/30/22 20:40: Magnesium 3.9 H 12/30/22 21:00: Urine Color Yellow, Urine Clarity Clear, Urine pH 7.0, Ur Specific [place] 1.010, Urine Protein 500 H, Urine Glucose (UA) 250 H, Urine Ketones Negative, Urine Occult Blood 10 H, Urine Nitrite Negative, Urine Bilirubin Negative, Urine Urobilinogen Normal, Ur Leukocyte Esterase Negative, Urine RBC 0-5 SEEN, Urine WBC 0-5 SEEN, Ur Squamous Epith Cells 0-5 SEEN, Urine Bacteria 1+, Urine Mucus 0 SEEN 12/31/22 06:27: POC Glucose 277 H 12/31/22 07:45: WBC 9.7, RBC 3.04 L, Hgb 8.8 L, Hct 27.8 L, MCV 91.4, MCH 28.9, MCHC 31.7 L, RDW Std Deviation 44.8 H, RDW Coeff of Mayra 13.3, Plt Count 268, MPV 9.0, Immature Gran % (Auto) 0.300, Neut % (Auto) 89.4 H, Lymph % (Auto) 5.9 L, [place] % (Auto) 4.2, Eos % (Auto) 0.0, Baso % (Auto) 0.2, Absolute Neuts (auto) 8.6 H, Absolute Lymphs (auto) 0.57 L, Nucleated RBC % 0 Micro: Microbiology 12/30/22 20:45 Blood Culture (Wb) - Right Forearm Blood Culture - Preliminary 12/30/22 20:40 Blood Culture (Wb) - Left Hand Blood Culture - Preliminary Radiography Diagnostic Testing: Radiology Impression Femur X-Ray 12/30/22 21:15 IMPRESSION: No acute findings. Electronically Signed: Alejandro Schmidt MD at 21:52 EST , Tibia/Fibula X-Ray 12/30/22 21:15 IMPRESSION: No acute bony abnormality. Electronically Signed: Alejandro Schmidt MD at 21:51 EST , Lower Extremity CT 12/30/22 22:32 IMPRESSION: Nonspecific and diffuse subcutaneous soft tissue edema/cellulitis of the right lower extremity without gas formation or well-defined abscess.. Necrotizing fasciitis not excluded. Electronically Signed: Alejandro Schmidt MD at 0:47 EST Reading Location ID and State: [facility] / ID Tel , Service support , Rhythm Strip Rhythm Strip: Sinus Tach Rate: 110 Ectopy: None Physical Exam Narrative GENERAL: cooperative HEENT: Atraumatic; normocephalic EYES; Anicteric, Normal Conjunctiva NECK; supple, normal thyroid, RESPIRATORY: Diminished to auscultation CARDIOVASCULAR: Regular S1 S2, GI: soft, normoactive bowel sounds, : No Renal angle tenderness; EXTREMITIES: Left BKA MUSCULOSKELETAL: no muscle wasting NEURO: Awake; no lateralizing signs. SKIN: Erythema and warmth involving the medial aspect of the right lower extremity from the thigh to the ankle PSYCH; Flat affect Assessment & Plan Assessment/Plan (1) Cellulitis of right lower extremity without foot: PLAN: Plan Patient is a 50-year-old gentleman with BMI of 51 who presented with pain and redness involving the medial aspect of the right thigh. An assessment of right lower extremity cellulitis made admitted for further inpatient management 1. Right lower extremity cellulitis ? Patient admitted to a monitored bed started on broad-spectrum antibiotic therapy with vancomycin and Zosyn 2. Acute kidney injury ? Patient creatinine on record from 12/10/2019 was 0.78 creatinine on admission was 2.09 started on IV fluid with subsequent monitoring with daily BMPs ordered. Potential nephrotoxic medications including furosemide and lisinopril held 3. Anemia - Secondary to chronic disorder monitoring H&H and transfuse if patient becomes symptomatic or hemoglobin falls below 7 4. Hypertension - Blood pressure controlled, home medications continued with dose adjustment as needed 5. Diabetes mellitus type II -patient's oral hypoglycemics held. Placed on long acting insulin, Accu-Cheks a.c. and at bedtime and covered with sliding scale insulin 6. Class III obesity with BMI of 51.6 ? Complicating care weight loss advised 7. 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 DVT prophylaxis ? On heparin Time spent in the patient's overall evaluation,decision-making process, review of diagnostic data, adjustment of management, discussion with other providers, nursing nursing and ancillary staff involved in patient's care documentation, 55 Minutes Charges/Coding Visit Charges Inpatient E&M: 90631 [facility] Hosp L3
[2022-12-31 08:31] LABS: Partial Thromboplast Time 132.9 Seconds (24.1-36.2)
[2022-12-31 08:34] LABS: Differential Comment SCANNED
[2022-12-31 08:39] LABS: Vitamin B12 1473 pg/mL (211-911)
[2022-12-31 08:43] LABS: Hemoglobin A1c 7.4 % (3.8-5.6)
[2022-12-31 08:47] LABS: ALB/GLOB Ratio 0.5 RATIO (0.9-2.4); AST(SGOT) 22 U/L (15-37); Alanine Aminotransfer ALT/SGPT 27 U/L (16-61); Albumin, Serum 1.7 g/dL (3.2-5.0); Alkaline Phosphatase 57 U/L (45-117); Anion Gap 8 (5-15); BUN 49 mg/dL (7-18); Calcium,Total 7.9 mg/dL (8.5-10.1); Chloride 109 mmol/L (98-107); Creatinine, Serum 2.72 mg/dL (0.70-1.30); EST Glomerular Filtration Rate 27 mL/min (>60); Est Glom Filt Rate - Afr Amer 33 mL/min (>60); Globulin 3.3 g/dL (2.2-4.2); Glucose 283 mg/dL (74-106); Potassium 5.5 mmol/L (3.5-5.1); Sodium Level 140 mmol/L (136-145)
--- NOTE | 2022-12-31 08:50 | EX.PCM.CON.S ---
Assessment & Plan Assessment/Plan (1) Cellulitis of right lower extremity without foot: PLAN: Plan Did review CT right lower extremity personally. No drainable fluid collection seen. Exam did not reveal any areas of specific fluctuance as well patient has skin diffuse redness with some previously popped blisters on the lateral leigh, patient is erythema does go up to the proximal medial thigh this area is indurated but again no obvious drainable areas. Continue antibiotics per primary. Tameka Plata M.D. Pager: [phone] [facility] [address] [place] [address], Outpatient Pavilion, [address] [place] [id number] Office: [phone] HPI Consult Data Date of Consult: 12/31/22 HPI Narrative Reason for Consultation: Evaluation of the right lower extremity for possible need for I&D HPI Narrative: JASKARAN MOREL, is a 42 M who presents to the ER due to increasing cellulitis and pain in the right lower extremity per patient and family started just yesterday. Patient had previously been having blisters in the right lower extremity that had been popping but they were not red or this painful previously. Patient denies having this previously. Patient CT abdomen pelvis does show diffuse cellulitis not show any obvious areas of fluid collection/abscess. Patient is currently on broad-spectrum antibiotics. [facility] Medical History Below-knee amputation of left lower extremity Charcot's joint Chronic anemia CKD (chronic kidney disease), stage III Diabetes mellitus type 2 in obese Diabetic neuropathy History of osteomyelitis HLD (hyperlipidemia) HTN (hypertension) Morbid obesity Home Medications Magnesium 2 tab PO BID supplement 12/10/19 [History Last Taken Unknown] Novolin 70/30 30 - 35 units SQ QHS diabetes 12/10/19 [History Last Taken Unknown] Pantothenic Acid 1 tab PO BID supplement 12/10/19 [History Last Taken Unknown] Potassium 2 tab PO DAILY supplement 12/10/19 [History Last Taken Unknown] cholecalciferol (vitamin D3) 50 mcg (2,000 unit) capsule 2,000 unit PO BID supplement 12/10/19 [History Last Taken Unknown] lisinopril 5 mg tablet 20 mg PO DAILY 12/10/19 [History Last Taken Unknown] amlodipine 10 mg tablet 10 mg PO DAILY 12/30/22 [History Last Taken Unknown] furosemide 40 mg tablet 40 mg PO DAILY 12/30/22 [History Last Taken Unknown] hydralazine 25 mg tablet 25 mg PO BID 12/30/22 [History Last Taken Unknown] Allergy/AdvReac Type Severity Reaction Status Date / Time metformin AdvReac Abd Verified 12/31/22 01:02 cramps/diarrhea Family History other Surgical History History of surgery on lower extremity Status post left foot surgery Social History (Updated 12/30/22 @ 22:[address] Marline Wilhelm MD) household members: spouse Smoking Status: Former smoker how long ago did patient quit smoking: Quit ~ 15 years prior to current presentation. alcohol intake: never substance use type: does not use ROS Constitutional Constitutional: Denies anorexia Eyes Eyes: Denies loss of central vision ENT HEENT: Denies dysphagia Cardiovascular Cardiovascular: Denies chest pain Respiratory/Chest Respiratory/Chest: Denies cough Gastrointestinal Gastrointestinal: Denies abdominal pain, nausea or vomiting Genitourinary Genitourinary: Denies dysuria Musculoskeletal Musculoskeletal: Reports difficulty walking Integumentary Integumentary: Reports non-healing lesions; Denies jaundice Neurologic Neurologic: Denies focal weakness Psychiatric Psychiatric: Denies depression Hematologic/Lymphatic Hematologic/Lymphatic: Denies easy bleeding Physical Exam Const alert, oriented x3 and no apparent distress HEENT normocephalic Resp normal respiratory effort Cardio Rate: regular rate GI soft to palpation, non-tender and non-distended Extremity Extremity Narrative: Left: BKA, Right lower extremity: cellulitis involving the lower leg and proximal thigh. Patient does have previously popped blisters on the lateral aspect of his calf, area is tender to palpation. Patient does not have tenderness with movement of his toes or ankles, no erythema on the foot. Skin Skin Narrative: Cellulitis/previously popped blisters to the right lower extremity calf and erythema to the proximal medial thigh Neuro CN's II-XII intact bilaterally Psych affect normal Lab / Micro Data Result Diagrams: 12/31/22 07:45 12/31/22 07:45 Labs: Laboratory Results - last 24 hr 12/30/22 20:40: WBC 8.2, RBC 3.51 L, Hgb 10.3 L, Hct 31.2 L, MCV 88.9, MCH 29.3, MCHC 33.0, RDW Std Deviation 43.1, RDW Coeff of Mayra 13.2, Plt Count 387, MPV 9.0, Immature Gran % (Auto) 0.100, Neut % (Auto) 71.5 H, Lymph % (Auto) 19.0, [place] % (Auto) 6.0, Eos % (Auto) 2.9, Baso % (Auto) 0.5, Absolute Neuts (auto) 5.9, Absolute Lymphs (auto) 1.56, Nucleated RBC % 0 12/30/22 20:40: PT 12.4, INR 1.0, APTT 30.8 12/30/22 20:40: Sodium 140, Potassium 5.1, Chloride 110 H, Carbon Dioxide 23.0, Anion Gap 7, BUN 43 H, Creatinine 2.09 H, Estim Creat Clear Calc 36.68, Est GFR (MDRD) Af Amer 45 L, Est GFR (MDRD) Non-Af 37 L, BUN/Creatinine Ratio 20.6 H, Glucose 288 H, Calcium 8.2 L, Total Bilirubin 0.20, AST 20, ALT 28, Alkaline Phosphatase 77, Total Creatine Kinase 204, Total Protein 5.7 L, Albumin 2.0 L, Globulin 3.7, Albumin/Globulin Ratio 0.5 L 12/30/22 20:40: Lactic Acid < 0.1 L 12/30/22 20:40: Magnesium 3.9 H 12/30/22 21:00: Urine Color Yellow, Urine Clarity Clear, Urine pH 7.0, Ur Specific [place] 1.010, Urine Protein 500 H, Urine Glucose (UA) 250 H, Urine Ketones Negative, Urine Occult Blood 10 H, Urine Nitrite Negative, Urine Bilirubin Negative, Urine Urobilinogen Normal, Ur Leukocyte Esterase Negative, Urine RBC 0-5 SEEN, Urine WBC 0-5 SEEN, Ur Squamous Epith Cells 0-5 SEEN, Urine Bacteria 1+, Urine Mucus 0 SEEN 12/31/22 06:27: POC Glucose 277 H 12/31/22 07:45: WBC 9.7, RBC 3.04 L, Hgb 8.8 L, Hct 27.8 L, MCV 91.4, MCH 28.9, MCHC 31.7 L, RDW Std Deviation 44.8 H, RDW Coeff of Mayra 13.3, Plt Count 268, MPV 9.0, Immature Gran % (Auto) 0.300, Neut % (Auto) 89.4 H, Lymph % (Auto) 5.9 L, [place] % (Auto) 4.2, Eos % (Auto) 0.0, Baso % (Auto) 0.2, Absolute Neuts (auto) 8.6 H, Absolute Lymphs (auto) 0.57 L, Nucleated RBC % 0, Differential Comment SCANNED 12/31/22 07:45: Sodium 140, Potassium 5.5 H, Chloride 109 H, Carbon Dioxide 23.0, Anion Gap 8, BUN 49 H, Creatinine 2.72 H, Estim Creat Clear Calc 31.60, Est GFR (MDRD) Af Amer 33 L, Est GFR (MDRD) Non-Af 27 L, BUN/Creatinine Ratio 18.0, Glucose 283 H, Calcium 7.9 L, Total Bilirubin 0.30, AST 22, ALT 27, Alkaline Phosphatase 57, Total Protein 5.0 L, Albumin 1.7 L, Globulin 3.3, Albumin/Globulin Ratio 0.5 L 12/31/22 07:45: Hemoglobin A1c 7.4 H 12/31/22 07:45: Vitamin B12 1473 H 12/31/22 07:45: APTT 132.9 H* Micro: Microbiology 12/30/22 20:45 Blood Culture (Wb) - Right Forearm Blood Culture - Preliminary 12/30/22 20:40 Blood Culture (Wb) - Left Hand Blood Culture - Preliminary Rhythm Strip Rhythm Strip: Sinus Tach Rate: 110 Ectopy: None Radiology Impression Femur X-Ray 12/30/22 21:15 IMPRESSION: No acute findings. Electronically Signed: Alejandro Schmidt MD at 21:52 EST , Tibia/Fibula X-Ray 12/30/22 21:15 IMPRESSION: No acute bony abnormality. Electronically Signed: Alejandro Schmidt MD at 21:51 EST Reading Location ID and State: [facility] / [place] Tel , Service support , Lower Extremity CT 12/30/22 22:32 IMPRESSION: Nonspecific and diffuse subcutaneous soft tissue edema/cellulitis of the right lower extremity without gas formation or well-defined abscess.. Necrotizing fasciitis not excluded. Electronically Signed: Alejandro Schmidt MD at 0:47 EST ,
[2022-12-31 09:31] LABS: Ferritin 141 ng/mL (26-388); Iron 12 ug/dL (65-175); Iron Binding Capacity,Total 185 ug/dL (250-450); PERCENT IRON SATURATION 6.5 % (15.0-55.0)
[2022-12-31] MEDS: 0.9% Saline Lock 10 ML Syringe IV ×2 (10:00→16:37)
[2022-12-31] MEDS: hydrALAZINE 25 MG Tablet PO ×2 (10:00→22:09)
[2022-12-31] MEDS: amLODIPine 10 MG Tablet PO (10:00)
[2022-12-31 12:40] LABS: Bedside Glucose 222 mg/dL (74-106)
[2022-12-31 13:36] LABS: M R Staph aureus DNA By PCR Negative (Negative); Probe Check PASS; Specimen Processing Control PASS; Staph aureus DNA By PCR POSITIVE (Negative)
--- NOTE | 2022-12-31 14:17 | WOUNDNOTE ---
wound photo: right lateral lower leg
--- NOTE | 2022-12-31 15:30 | CASEMGMT ---
RN?CM?MAGNETIC PROSPECTING SUPERVISOR?CM?to room to meet with patient for initial transition planning/care coordination?assessment.?RN?CM?introduced self and role at [facility].? Pt voices understanding and consents to?assessment?at this time.? Pt resting in bed in no distress at this time.?, Kaley Gama, @ bedside. Pt is A/O at this time and answers all questions appropriately.?? Care providers, pharmacy, and demographics verified/updated at this time. PCP: Dr Ghotra Specialists: Gas Roller Operator @ [facility] [facility] Insurance: Pt and state they do not have [employer] [facility]. They state [facility] liaison, has been in to see them. Prescription Benefit:?none Living Will/HPOA:?None LNOK: , Kaley Gama. Living Arrangements: Lives w/ and nephew in 2-story home. FFSU w/ramp entrance. assists w/bathing/dressing and IADL's. Pt manages his own medications. Transportation:?Hire drivers DME: ?States has the following DME:?BSC, sliding board, cane, walker, W/C, BP machine, functioning glucometer w/supplies. ?Pt states no need for further DME at this time.? HHC/SNF: Hx [facility] after amputation and hx of HHC. Pt declines need for HHC . Pt wishes to return home and states has no concerns with going home at time of discharge.? CM?to follow for any discharge planning/needs.? Pt voices no concerns/needs at this time.? Advised pt to ask for?CM?if any questions/concerns/needs arise.? Voices understanding. PLAN:??Home w/spousal support and discharge plans in place. Timbo BSN?RN?CM
[2022-12-31] MEDS: Juven (unflavored) Packet 1 PACKET PO (17:20)
[2022-12-31 17:42] LABS: Partial Thromboplast Time 68.4 Seconds (24.1-36.2)
--- NOTE | 2022-12-31 19:25 | NURSING ---
pt states he might need to be on oxygen b/c he feels SOB. Pt saturation at this time is 93-94% on RA, LS clear, no wheezes/crackles. Pt request to be put on oxygen at this time and this RN placed 2L nc, saturation of 97%. will continue to minitor pt.
[2022-12-31] MEDS: Heparin Injection (Vial) 5,000 UNIT/ML VIAL 5000 UNIT SC (22:10)
[2022-12-31] MEDS: Insulin Human 75/25 Kwickpen 35 UNIT SC (22:12)
[2022-12-31] MEDS: Acetaminophen 325 MG Tablet 650 MG PO (22:20)
[2022-12-31 23:56] LABS: Bedside Glucose 222 mg/dL (74-106)
[2023-01-01] VITALS (9 sets, daily range): BP systolic 133–180; BP diastolic 56–83; PULSE 63–108; RESP 18–22; TEMP 36.5–37; O2SAT 93–97; BMI 54.8
[2023-01-01] MEDS: 0.9% Normal Saline 1,000 ML 150 ML IV ×2 (01:07→09:07)
[2023-01-01 02:51] LABS: Bedside Glucose 207 mg/dL (74-106)
[2023-01-01] MEDS: Clindamycin 900 MG/50 ML BAG 75 MG IV (05:13)
[2023-01-01] MEDS: Heparin Injection (Vial) 5,000 UNIT/ML VIAL 5000 UNIT SC ×2 (05:15→21:55)
[2023-01-01] MEDS: Nystatin Powder 15gm Bottle 1 APPLIC TOPICAL ×2 (05:19→21:58)
[2023-01-01 07:01] LABS: Bedside Glucose 125 mg/dL (74-106)
--- NOTE | 2023-01-01 07:47 | PCM.PN.HOSP ---
Reason for Visit Reason for Visit: Diagnoses Cellulitis of right lower limb (12/30/22) Subjective Subjective Seen admit to less pain involving the right lower extremity compared to when he was first admitted. De-escalated patient antibiotic therapy with discontinuation of clindamycin Objective Data Objective Data Vital Signs: Vital Signs Temp Pulse Resp BP Pulse Ox O2 Del Method O2 Flow Rate 98.3 F 63 18 133/59 H 96 Nasal Cannula 2 01/01/23 04:26 01/01/23 04:26 01/01/23 04:26 01/01/23 04:26 01/01/23 04:26 01/01/23 04:26 01/01/23 04:26 Oxygen Flow Rate (L/min) 2 Oxygen Delivery Method Nasal Cannula Weight: 154.1 kg Body Mass Index (BMI) 54.8 Intake & Output: Intake and Output for Last 24 Hours 12/30/22 12/31/22 01/01/23 23:59 23:59 23:59 Intake Total 150 / 150 5214.65 / 5214.65 1600 / 1600 Output Total 800 / 800 Balance 150 / 150 4414.65 / 4414.65 1600 / 1600 Lab / Micro Data Result Diagrams: 12/31/22 07:45 12/31/22 07:45 Labs: Laboratory Results - last 24 hr 12/31/22 07:45: WBC 9.7, RBC 3.04 L, Hgb 8.8 L, Hct 27.8 L, MCV 91.4, MCH 28.9, MCHC 31.7 L, RDW Std Deviation 44.8 H, RDW Coeff of Mayra 13.3, Plt Count 268, MPV 9.0, Immature Gran % (Auto) 0.300, Neut % (Auto) 89.4 H, Lymph % (Auto) 5.9 L, [place] % (Auto) 4.2, Eos % (Auto) 0.0, Baso % (Auto) 0.2, Absolute Neuts (auto) 8.6 H, Absolute Lymphs (auto) 0.57 L, Nucleated RBC % 0, Differential Comment SCANNED 12/31/22 07:45: Sodium 140, Potassium 5.5 H, Chloride 109 H, Carbon Dioxide 23.0, Anion Gap 8, BUN 49 H, Creatinine 2.72 H, Estim Creat Clear Calc 31.60, Est GFR (MDRD) Af Amer 33 L, Est GFR (MDRD) Non-Af 27 L, BUN/Creatinine Ratio 18.0, Glucose 283 H, Calcium 7.9 L, Total Bilirubin 0.30, AST 22, ALT 27, Alkaline Phosphatase 57, Total Protein 5.0 L, Albumin 1.7 L, Globulin 3.3, Albumin/Globulin Ratio 0.5 L 12/31/22 07:45: Hemoglobin A1c 7.4 H 12/31/22 07:45: Vitamin B12 1473 H 12/31/22 07:45: Iron 12 L, TIBC 185 L, Iron Saturation 6.5 L, Ferritin 141, Folate 41.80 12/31/22 07:45: APTT 132.9 H* 12/31/22 10:38: S.aureus Protein A PCR POSITIVE H, MRSA (PCR) Negative 12/31/22 12:13: POC Glucose 222 H 12/31/22 16:52: APTT 68.4 H 12/31/22 17:16: POC Glucose 207 H 12/31/22 22:02: POC Glucose 222 H 01/01/23 06:27: POC Glucose 125 H Micro: Microbiology 12/30/22 20:45 Blood Culture (Wb) - Right Forearm Blood Culture - Preliminary GNR lactose cabinet worker 12/30/22 20:40 Blood Culture (Wb) - Left Hand Blood Culture - Preliminary GNR lactose cabinet worker Radiography Diagnostic Testing: Radiology Impression Venous Doppler Study 12/31/22 05:55 Interpretation Summary There is no evidence of right lower extremity deep vein thrombosis. Right great saphenous vein appears patent and compressible segmentally. Right peroneal vein could not be identified Technically limited examination secondary to right lower extremity swelling and body habitus and wounds and inability to tolerate compression Normal flow patterns left common femoral vein Ordering Physician: Marline Wilhelm Referring Physician: Diego Ghotra Performed By: Raul Cotter RVT Rhythm Strip Rhythm Strip: Sinus Tach Rate: 110 Ectopy: None Physical Exam Narrative GENERAL: cooperative HEENT: Atraumatic; normocephalic EYES; Anicteric, Normal Conjunctiva NECK; supple, normal thyroid, RESPIRATORY: Diminished to auscultation CARDIOVASCULAR: Regular S1 S2, GI: soft, normoactive bowel sounds, : No Renal angle tenderness; EXTREMITIES: Left BKA MUSCULOSKELETAL: no muscle wasting NEURO: Awake; no lateralizing signs. SKIN: Erythema and warmth involving the medial aspect of the right lower extremity from the thigh to the ankle PSYCH; Flat affect Assessment & Plan Assessment/Plan (1) Cellulitis of right lower extremity without foot: PLAN: Plan Patient is a 50-year-old gentleman with BMI of 51 who presented with pain and redness involving the medial aspect of the right thigh. An assessment of right lower extremity cellulitis made admitted for further inpatient management 1. Right lower extremity cellulitis ? Patient admitted to a monitored bed started on broad-spectrum antibiotic therapy with clindamycin, vancomycin and Zosyn 01/01/2023;een admit to less pain involving the right lower extremity compared to when he was first admitted. De-escalated patient antibiotic therapy with discontinuation of clindamycin 2. Acute kidney injury ? Patient creatinine on record from 12/10/2019 was 0.78 creatinine on admission was 2.09 started on IV fluid with subsequent monitoring with daily BMPs ordered. Potential nephrotoxic medications including furosemide and lisinopril held 3. Anemia - Secondary to chronic disorder monitoring H&H and transfuse if patient becomes symptomatic or hemoglobin falls below 7 4. Hypertension - Blood pressure controlled, home medications continued with dose adjustment as needed 5. Diabetes mellitus type II -patient's oral hypoglycemics held. Placed on long acting insulin, Accu-Cheks a.c. and at bedtime and covered with sliding scale insulin 6. Class III obesity with BMI of 51.6 ? Complicating care weight loss advised 7. 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 DVT prophylaxis ? On heparin Time spent in the patient's overall evaluation,decision-making process, review of diagnostic data, adjustment of management, discussion with other providers, nursing nursing and ancillary staff involved in patient's care documentation, 40 Minutes
--- NOTE | 2023-01-01 08:14 | PCM.PN.SRG ---
Subjective Subjective Patient seen and examined during AM rounds. Is found sitting up in bed eating breakfast. He reports that his leg feels somewhat better and he is able to move it more freely. Objective Data Objective Data Vital Signs: Vital Signs Temp Pulse Resp BP Pulse Ox O2 Del Method O2 Flow Rate 98.3 F 63 18 133/59 H 96 Nasal Cannula 2 01/01/23 04:26 01/01/23 04:26 01/01/23 04:26 01/01/23 04:26 01/01/23 04:26 01/01/23 04:26 01/01/23 04:26 Oxygen Flow Rate (L/min) 2 Oxygen Delivery Method Nasal Cannula Weight: 339 lb 11.717 oz Body Mass Index (BMI) 54.8 Intake & Output: Intake and Output for Last 24 Hours 12/30/22 12/31/22 01/01/23 23:59 23:59 23:59 Intake Total 150 / 150 5214.65 / 5214.65 1600 / 1600 Output Total 800 / 800 Balance 150 / 150 4414.65 / 4414.65 1600 / 1600 Lab / Micro Data Result Diagrams: 12/31/22 07:45 12/31/22 07:45 Labs: Laboratory Results - last 24 hr 12/31/22 07:45: Differential Comment SCANNED 12/31/22 07:45: Sodium 140, Potassium 5.5 H, Chloride 109 H, Carbon Dioxide 23.0, Anion Gap 8, BUN 49 H, Creatinine 2.72 H, Estim Creat Clear Calc 31.60, Est GFR (MDRD) Af Amer 33 L, Est GFR (MDRD) Non-Af 27 L, BUN/Creatinine Ratio 18.0, Glucose 283 H, Calcium 7.9 L, Total Bilirubin 0.30, AST 22, ALT 27, Alkaline Phosphatase 57, Total Protein 5.0 L, Albumin 1.7 L, Globulin 3.3, Albumin/Globulin Ratio 0.5 L 12/31/22 07:45: Hemoglobin A1c 7.4 H 12/31/22 07:45: Vitamin B12 1473 H 12/31/22 07:45: Iron 12 L, TIBC 185 L, Iron Saturation 6.5 L, Ferritin 141, Folate 41.80 12/31/22 07:45: APTT 132.9 H* 12/31/22 10:38: S.aureus Protein A PCR POSITIVE H, MRSA (PCR) Negative 12/31/22 12:13: POC Glucose 222 H 12/31/22 16:52: APTT 68.4 H 12/31/22 17:16: POC Glucose 207 H 12/31/22 22:02: POC Glucose 222 H 01/01/23 06:27: POC Glucose 125 H Micro: Microbiology 12/30/22 20:45 Blood Culture (Wb) - Right Forearm Blood Culture - Preliminary GNR lactose infusion pharmacist 12/30/22 20:40 Blood Culture (Wb) - Left Hand Blood Culture - Preliminary GNR lactose infusion pharmacist Radiography Diagnostic Testing: Radiology Impression Venous Doppler Study 12/31/22 05:55 Interpretation Summary There is no evidence of right lower extremity deep vein thrombosis. Right great saphenous vein appears patent and compressible segmentally. Right peroneal vein could not be identified Technically limited examination secondary to right lower extremity swelling and body habitus and wounds and inability to tolerate compression Normal flow patterns left common femoral vein Ordering Physician: Marline Wilhelm Referring Physician: Diego Ghotra Performed By: Raul Cotter RVT Rhythm Strip Rhythm Strip: Sinus Tach Rate: 110 Ectopy: None Physical Exam Const oriented x3 and no apparent distress Resp normal respiratory effort Extremity Extremity Narrative: Patient with tense edema of the right lower extremity and particular focus of cellulitis along the right medial thigh. This is tender to palpation and blanchable, but there is no obvious fluctuance or bullae. Patient demonstrates that he is motor intact on command. The lower leg is wrapped with Nehemiah bandages Assessment & Plan Assessment/Plan (1) Cellulitis of right lower extremity without foot: PLAN: Is a 42-year-old male who is admitted for management of right lower extremity cellulitis?particularly along the right medial thigh. Patient reports decreased symptoms of pain and improved movement. On exam the extremity remains tense with edema and significantly cellulitic in the medial thigh compartment. No obvious fluctuance or crepitus are palpated. Patient demonstrates that he is motor intact. Micro results are slowly returning and consistent with lactose fermenting GNR's of the blood and Staph aureus PCR is positive. ? Consider slight elevation of right lower extremity and floating heel on pillows to avoid pressure wounds ? Continue IV antibiotics ? Continue serial extremity exams Charges/Coding Visit Charges Inpatient E&M: 98029 Subs Hosp L2
[2023-01-01] MEDS: hydrALAZINE 25 MG Tablet PO ×2 (09:14→21:54)
[2023-01-01] MEDS: Juven (unflavored) Packet 1 PACKET PO (09:14)
[2023-01-01] MEDS: amLODIPine 10 MG Tablet PO (09:14)
[2023-01-01 11:09] LABS: Absolute Lymphocyte Count 1.36 X10^3/uL (0.83-4.51); Absolute Neutrophil Count 8.3 X10^3/uL (2.0-7.7); Basophil# 0.03 X10^3/uL; Basophil% 0.3 % (0-1); Eosinophil# 0.12 X10^3/uL; Eosinophils% 1.1 % (0-5); Hematocrit 25.7 % (40-54); Hemoglobin 8.3 g/dL (13.0-16.5); Lymphocyte # 1.36 X10^3/ul (0.83-4.51); Mean Corp Hgb Conc 32.3 g/dL (32-36); Mean Corpuscular Hgb 29.3 pg (27.0-32.0); Mean Corpuscular Volume 90.8 fL (80-94); Monocyte# 0.68 X10^3/uL; Monocyte% 6.5 % (0-10); NRBC Flagged by Analyzer 0 % (0-5); Neutrophil # 8.25 X10^3/uL (2.7-7.7); Neutrophil % 78.8 % (47-70); Platelet Count 253 K/mm3 (150-450); RBC Distribution Width CV 13.4 % (11.6-14.6); RBC Distribution Width SD 45.3 fl (35.1-43.9); Red Blood Count 2.83 M/mm3 (4.6-6.2); White Blood Count 10.5 K/mm3 (4.4-11.0)
[2023-01-01 11:25] LABS: Anion Gap 7 (5-15); BUN 62 mg/dL (7-18); BUN/Creat Ratio 17.7 RATIO (10-20); Calcium,Total 7.6 mg/dL (8.5-10.1); Chloride 110 mmol/L (98-107); EST Glomerular Filtration Rate 20 mL/min (>60); Est Glom Filt Rate - Afr Amer 25 mL/min (>60); Estimated Creatinine Clearance 24.56 ml/min; Glucose 206 mg/dL (74-106); Potassium 5.4 mmol/L (3.5-5.1); Sodium Level 137 mmol/L (136-145)
[2023-01-01 12:21] LABS: Bedside Glucose 197 mg/dL (74-106)
[2023-01-01] MEDS: Insulin Lispro 100 UNIT/ML INSULN.PEN SC ×3 (12:46→21:55)
[2023-01-01] MEDS: 0.9% Saline Lock 10 ML Syringe IV ×2 (12:46→17:12)
[2023-01-01 15:02] LABS: Vancomycin, Trough Level 32.5 ug/mL (5.0-15.0)
--- NOTE | 2023-01-01 15:41 | PHA.PHARE_ITS ---
Consult Pharmacy has been consulted to manage selected antiobiotic: Vancomycin Type of Consult: Follow-up Suspected Infection: Skin/Soft tissue Prior Doses of Antibiotics Received/Current Regimen: current dose is vanc 1500mg IV q12h Labs: Sodium 137 mmol/L (136-145) 01/01/23 10:50 Potassium 5.4 mmol/L (3.5-5.1) H 01/01/23 10:50 Chloride 110 mmol/L (98-107) H 01/01/23 10:50 Carbon Dioxide 20.0 mmol/L (21.0-32.0) L 01/01/23 10:50 Anion Gap 7 (5-15) 01/01/23 10:50 BUN 62 mg/dL (7-18) H 01/01/23 10:50 Creatinine 3.50 mg/dL (0.70-1.30) H 01/01/23 10:50 Est GFR (MDRD) Af Amer 25 mL/min (>60) L 01/01/23 10:50 Est GFR (MDRD) Non-Af 20 mL/min (>60) L 01/01/23 10:50 BUN/Creatinine Ratio 17.7 RATIO (10-20) 01/01/23 10:50 Glucose 206 mg/dL (74-106) H 01/01/23 10:50 Vancomycin Trough 32.5 ug/mL (5.0-15.0) H 01/01/23 14:00 Microbiology: Microbiology 12/31/22 10:15 Wound - Leg, Right Gram Stain - Final 12/31/22 10:15 Wound - Leg, Right Wound Culture - Preliminary GNR lactose medical staff credentialing coordinator Gram positive organism 01/01/23 10:42 Stool Stool Occult Blood (ARACELI) - Final 12/30/22 21:00 Urine, Clean Catch Urine Culture - Preliminary Culture exhibits no growth. 12/30/22 20:45 Blood Culture (Wb) - Right Forearm Blood Culture - Preliminary GNR lactose medical staff credentialing coordinator 12/30/22 20:40 Blood Culture (Wb) - Left Hand Blood Culture - Preliminary GNR lactose medical staff credentialing coordinator Weight used for dosin.1 kg Estimated Creatinine Clearance: 38.5ml/min Goal Trough: 15-20 mcg/mL Pharmacy Plan for Drug Dosing: The vanc trough level drawn at 14:00 today (12 hours after the previous dose) was 32.5. This is well above goal range so will discontinue current dose. Will order a random vanc level to be drawn in 24 hours and that level will be used to determine if a dose should be given tomorrow. Of note, the patient's SCr increased to 3.50 today (CrCl = 38.5ml/min using adjusted body weight). The patient's SCr had been 2.72 yesterday and 2.09 two days ago. Will continue to monitor renal function as well. Pharmacy Service will continue to monitor and adjust dosing as required. Follow-Up Labs: Trough Vancomycin - random level Labs to be done on [date and time ordered]: 01/02/23 14:00
[2023-01-01] MEDS: Albuterol 2.5 MG/3 ML VIAL.NEB. INHALATION (17:00)
[2023-01-01] MEDS: Furosemide 40 MG/4 ML Vial IV (17:12)
[2023-01-01] MEDS: Morphine 2 MG/ML Syringe IV (17:13)
[2023-01-01 17:46] LABS: Bedside Glucose 233 mg/dL (74-106)
[2023-01-01] MEDS: Insulin Human 75/25 Kwickpen 35 UNIT SC (21:58)
[2023-01-01 22:06] LABS: Bedside Glucose 269 mg/dL (74-106)
[2023-01-02 03:11] VITALS: BP 150/70; PULSE 72; RESP 18; TEMP 36.9; O2SAT 97
[2023-01-02] MEDS: Nystatin Powder 15gm Bottle 1 APPLIC TOPICAL (05:37)
[2023-01-02] MEDS: Heparin Injection (Vial) 5,000 UNIT/ML VIAL 5000 UNIT SC ×3 (05:37→21:23)
[2023-01-02 06:00] VITALS: BMI 55.2
--- NOTE | 2023-01-02 07:03 | NURSING ---
Blood sugar 68. Pt drank 4 oz juice.
[2023-01-02 07:11] LABS: Absolute Lymphocyte Count 1.65 X10^3/uL (0.83-4.51); Absolute Neutrophil Count 6.5 X10^3/uL (2.0-7.7); Basophil# 0.03 X10^3/uL; Basophil% 0.3 % (0-1); Eosinophil# 0.09 X10^3/uL; Hematocrit 24.6 % (40-54); Hemoglobin 7.9 g/dL (13.0-16.5); Lymphocyte # 1.65 X10^3/ul (0.83-4.51); Lymphocyte % 18.9 % (19-41); Mean Corp Hgb Conc 32.1 g/dL (32-36); Mean Corpuscular Hgb 29.5 pg (27.0-32.0); Mean Corpuscular Volume 91.8 fL (80-94); Mean Platelet Vol. 9.3 fl (6.2-12.0); Monocyte# 0.51 X10^3/uL; Monocyte% 5.8 % (0-10); NRBC Flagged by Analyzer 0 % (0-5); Neutrophil # 6.46 X10^3/uL (2.7-7.7); Neutrophil % 73.9 % (47-70); Platelet Count 257 K/mm3 (150-450); RBC Distribution Width CV 13.2 % (11.6-14.6); Red Blood Count 2.68 M/mm3 (4.6-6.2); White Blood Count 8.8 K/mm3 (4.4-11.0)
[2023-01-02 07:45] LABS: Bedside Glucose 61 mg/dL (74-106)
[2023-01-02 07:45] LABS: AST(SGOT) 14 U/L (15-37); Alanine Aminotransfer ALT/SGPT 28 U/L (16-61); Albumin, Serum 1.4 g/dL (3.2-5.0); Alkaline Phosphatase 85 U/L (45-117); Anion Gap 9 (5-15); BUN 67 mg/dL (7-18); BUN/Creat Ratio 17.1 RATIO (10-20); Bilirubin, Direct 0.19 mg/dL (0.00-0.30); Calcium,Total 8.2 mg/dL (8.5-10.1); Chloride 112 mmol/L (98-107); Creatinine, Serum 3.92 mg/dL (0.70-1.30); EST Glomerular Filtration Rate 18 mL/min (>60); Est Glom Filt Rate - Afr Amer 22 mL/min (>60); Estimated Creatinine Clearance 21.93 ml/min; Glucose 78 mg/dL (74-106); Potassium 4.5 mmol/L (3.5-5.1); Protein, Total 5.4 g/dL (6.4-8.2); Sodium Level 141 mmol/L (136-145)
[2023-01-02 07:46] LABS: Bedside Glucose 66 mg/dL (74-106)
--- NOTE | 2023-01-02 08:04 | US_ITS ---
INDICATION: Renal failure EXAMINATION: Ultrasound US Kidney(s) complete (eg, kidneys and bladder) TECHNIQUE: Martin scale and color doppler images were obtained of the kidneys. COMPARISON: None. FINDINGS: RIGHT KIDNEY: 11.2 x 5.8 x 5.5 cm. There is no hydronephrosis. No shadowing calculus, focal lesion or perinephric collection is demonstrated. LEFT KIDNEY: 10.5 x 5.7 x 5.6 cm. There is no hydronephrosis. No shadowing calculus, focal lesion or perinephric collection is demonstrated. URINARY BLADDER: 248 cc distended volume. Mild diffuse wall thickening up to 4.4 mm. US/Kidney and Bladder IMPRESSION: No hydronephrosis. Electronically Signed: Alejandro Schmidt MD at 17:44 EDT ,
--- NOTE | 2023-01-02 08:07 | PCM.PN.HOSP ---
Reason for Visit Reason for Visit: Diagnoses Cellulitis of right lower limb (12/30/22) Subjective Subjective Patient did request for resumption of his Lasix in view of increasing swelling. 1 dose of 40 mg of IV Lasix given today prior. Patient kidney function however continues to worsen. The combination of Zosyn and vancomycin for his severe cellulitis involving his right lower extremity discontinued. Replaced Zosyn with cefepime. Ordered renal and bladder ultrasound and consultation placed to nephrology Objective Data Objective Data Vital Signs: Vital Signs Temp Pulse Resp BP Pulse Ox O2 Del Method O2 Flow Rate 98.4 F 72 18 150/70 H 97 Nasal Cannula 3 01/02/23 03:11 01/02/23 03:11 01/02/23 03:11 01/02/23 03:11 01/02/23 03:11 01/02/23 03:11 01/02/23 03:11 Oxygen Flow Rate (L/min) 3 Oxygen Delivery Method Nasal Cannula Weight: 155.3 kg Body Mass Index (BMI) 55.2 Intake & Output: Intake and Output for Last 24 Hours 12/31/22 01/01/23 01/03/23 23:59 23:59 00:59 Intake Total 5214.65 / 5214.65 3800 / 3800 350 / 350 Output Total 800 / 800 525 / 525 1600 / 1600 Balance 4414.65 / 4414.65 3275 / 3275 -1250 / -1250 Lab / Micro Data Result Diagrams: 01/02/23 05:50 01/02/23 05:50 Labs: Laboratory Results - last 24 hr 01/01/23 10:50: WBC 10.5, RBC 2.83 L, Hgb 8.3 L, Hct 25.7 L, MCV 90.8, MCH 29.3, MCHC 32.3, RDW Std Deviation 45.3 H, RDW Coeff of Mayra 13.4, Plt Count 253, MPV 9.0, Immature Gran % (Auto) 0.300, Neut % (Auto) 78.8 H, Lymph % (Auto) 13.0 L, [place] % (Auto) 6.5, Eos % (Auto) 1.1, Baso % (Auto) 0.3, Absolute Neuts (auto) 8.3 H, Absolute Lymphs (auto) 1.36, Nucleated RBC % 0 01/01/23 10:50: Sodium 137, Potassium 5.4 H, Chloride 110 H, Carbon Dioxide 20.0 L, Anion Gap 7, BUN 62 H, Creatinine 3.50 H, Estim Creat Clear Calc 24.56, Est GFR (MDRD) Af Amer 25 L, Est GFR (MDRD) Non-Af 20 L, BUN/Creatinine Ratio 17.7, Glucose 206 H, Calcium 7.6 L 01/01/23 12:02: POC Glucose 197 H 01/01/23 14:00: Vancomycin Trough 32.5 H 01/01/23 17:20: POC Glucose 233 H 01/01/23 20:59: POC Glucose 269 H 01/02/23 05:50: WBC 8.8, RBC 2.68 L, Hgb 7.9 L, Hct 24.6 L, MCV 91.8, MCH 29.5, MCHC 32.1, RDW Std Deviation 45.0 H, RDW Coeff of Mayra 13.2, Plt Count 257, MPV 9.3, Immature Gran % (Auto) 0.100, Neut % (Auto) 73.9 H, Lymph % (Auto) 18.9 L, [place] % (Auto) 5.8, Eos % (Auto) 1.0, Baso % (Auto) 0.3, Absolute Neuts (auto) 6.5, Absolute Lymphs (auto) 1.65, Nucleated RBC % 0 01/02/23 05:50: Sodium 141, Potassium 4.5, Chloride 112 H, Carbon Dioxide 20.0 L, Anion Gap 9, BUN 67 H, Creatinine 3.92 H, Estim Creat Clear Calc 21.93, Est GFR (MDRD) Af Amer 22 L, Est GFR (MDRD) Non-Af 18 L, BUN/Creatinine Ratio 17.1, Glucose 78, Calcium 8.2 L, Total Bilirubin 0.40, Direct Bilirubin 0.19, AST 14 L, ALT 28, Alkaline Phosphatase 85, Total Protein 5.4 L, Albumin 1.4 L, Globulin 4.0 01/02/23 06:52: POC Glucose 61 L 01/02/23 07:25: POC Glucose 66 L Micro: Microbiology 12/30/22 20:45 Blood Culture (Wb) - Right Forearm Blood Culture - Final GNR lactose electronics scale tester 12/30/22 20:40 Blood Culture (Wb) - Left Hand Blood Culture - Final Escherichia coli 12/31/22 10:15 Wound - Leg, Right Gram Stain - Final 12/31/22 10:15 Wound - Leg, Right Wound Culture - Preliminary GNR lactose electronics scale tester Gram positive organism 01/01/23 10:42 Stool Stool Occult Blood (ARACELI) - Final 12/30/22 21:00 Urine, Clean Catch Urine Culture - Preliminary Culture exhibits no growth. Rhythm Strip Rhythm Strip: Sinus Tach Rate: 110 Ectopy: None Physical Exam Narrative GENERAL: cooperative HEENT: Atraumatic; normocephalic EYES; Anicteric, Normal Conjunctiva NECK; supple, normal thyroid, RESPIRATORY: Diminished to auscultation CARDIOVASCULAR: Regular S1 S2, GI: soft, normoactive bowel sounds, : No Renal angle tenderness; EXTREMITIES: Left BKA MUSCULOSKELETAL: no muscle wasting NEURO: Awake; no lateralizing signs. SKIN: Erythema and warmth involving the medial aspect of the right lower extremity from the thigh to the ankle PSYCH; Flat affect Assessment & Plan Assessment/Plan (1) Cellulitis of right lower extremity without foot: PLAN: Plan Patient is a 50-year-old gentleman with BMI of 51 who presented with pain and redness involving the medial aspect of the right thigh. An assessment of right lower extremity cellulitis made admitted for further inpatient management 1. Right lower extremity cellulitis ? Patient admitted to a monitored bed started on broad-spectrum antibiotic therapy with clindamycin, vancomycin and Zosyn 01/01/2023;seen admit to less pain involving the right lower extremity compared to when he was first admitted. De-escalated patient antibiotic therapy with discontinuation of clindamycin ? 01/02/2023. Zosyn discontinued replaced with cefepime in view of worsening kidney function 2. Acute kidney injury ? Patient creatinine on record from 12/10/2019 was 0.78 creatinine on admission was 2.09 started on IV fluid with subsequent monitoring with daily BMPs ordered. Potential nephrotoxic medications including furosemide and lisinopril held -01/02/2023; Patient did request for resumption of his Lasix in view of increasing swelling. 1 dose of 40 mg of IV Lasix given today prior. Patient kidney function however continues to worsen. The combination of Zosyn and vancomycin for his severe cellulitis involving his right lower extremity discontinued. Replaced Zosyn with cefepime. Ordered renal and bladder ultrasound and consultation placed to nephrology 3. Anemia - Secondary to chronic disorder monitoring H&H and transfuse if patient becomes symptomatic or hemoglobin falls below 7 4. Hypertension - Blood pressure controlled, home medications continued with dose adjustment as needed 5. Diabetes mellitus type II -patient's oral hypoglycemics held. Placed on long acting insulin, Accu-Cheks a.c. and at bedtime and covered with sliding scale insulin 6. Class III obesity with BMI of 51.6 ? Complicating care weight loss advised 7. 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 DVT prophylaxis ? On heparin Time spent in the patient's overall evaluation,decision-making process, review of diagnostic data, adjustment of management, discussion with other providers, nursing nursing and ancillary staff involved in patient's care documentation, 55 Minutes Charges/Coding Visit Charges Inpatient E&M: 48847 Subs Hosp L3
[2023-01-02 08:36] LABS: Bedside Glucose 83 mg/dL (74-106)
--- NOTE | 2023-01-02 09:06 | PN.SURG_ITS ---
Subjective Subjective Patient seen and examined during AM rounds. He is found resting in bed ordering from the kitchen. Once he completes this phone call, he reports that his right lower extremity discomfort is markedly improved and that his breathing discomfort (primarily experienced yesterday afternoon) is also improved. He relates that he is awaiting evaluation by a kidney doctor, but believes that his Lasix yesterday helped. Objective Data Objective Data Vital Signs: Vital Signs Temp Pulse Resp BP Pulse Ox O2 Del Method O2 Flow Rate 98.4 F 72 18 150/70 H 97 Nasal Cannula 3 01/02/23 03:11 01/02/23 03:11 01/02/23 03:11 01/02/23 03:11 01/02/23 03:11 01/02/23 03:11 01/02/23 03:11 Oxygen Flow Rate (L/min) 3 Oxygen Delivery Method Nasal Cannula Weight: 342 lb 6.046 oz Body Mass Index (BMI) 55.2 Intake & Output: Intake and Output for Last 24 Hours 12/31/22 01/01/23 01/03/23 23:59 23:59 00:59 Intake Total 5214.65 / 5214.65 3800 / 3800 392.92 / 392.92 Output Total 800 / 800 525 / 525 1600 / 1600 Balance 4414.65 / 4414.65 3275 / 3275 -1207.08 / -1207.08 Lab / Micro Data Result Diagrams: 01/02/23 05:50 01/02/23 05:50 Labs: Laboratory Results - last 24 hr 01/01/23 10:50: WBC 10.5, RBC 2.83 L, Hgb 8.3 L, Hct 25.7 L, MCV 90.8, MCH 29.3, MCHC 32.3, RDW Std Deviation 45.3 H, RDW Coeff of Mayra 13.4, Plt Count 253, MPV 9.0, Immature Gran % (Auto) 0.300, Neut % (Auto) 78.8 H, Lymph % (Auto) 13.0 L, [place] % (Auto) 6.5, Eos % (Auto) 1.1, Baso % (Auto) 0.3, Absolute Neuts (auto) 8.3 H, Absolute Lymphs (auto) 1.36, Nucleated RBC % 0 01/01/23 10:50: Sodium 137, Potassium 5.4 H, Chloride 110 H, Carbon Dioxide 20.0 L, Anion Gap 7, BUN 62 H, Creatinine 3.50 H, Estim Creat Clear Calc 24.56, Est GFR (MDRD) Af Amer 25 L, Est GFR (MDRD) Non-Af 20 L, BUN/Creatinine Ratio 17.7, Glucose 206 H, Calcium 7.6 L 01/01/23 12:02: POC Glucose 197 H 01/01/23 14:00: Vancomycin Trough 32.5 H 01/01/23 17:20: POC Glucose 233 H 01/01/23 20:59: POC Glucose 269 H 01/02/23 05:50: WBC 8.8, RBC 2.68 L, Hgb 7.9 L, Hct 24.6 L, MCV 91.8, MCH 29.5, MCHC 32.1, RDW Std Deviation 45.0 H, RDW Coeff of Mayra 13.2, Plt Count 257, MPV 9.3, Immature Gran % (Auto) 0.100, Neut % (Auto) 73.9 H, Lymph % (Auto) 18.9 L, [place] % (Auto) 5.8, Eos % (Auto) 1.0, Baso % (Auto) 0.3, Absolute Neuts (auto) 6.5, Absolute Lymphs (auto) 1.65, Nucleated RBC % 0 01/02/23 05:50: Sodium 141, Potassium 4.5, Chloride 112 H, Carbon Dioxide 20.0 L , Anion Gap 9, BUN 67 H, Creatinine 3.92 H, Estim Creat Clear Calc 21.93, Est GFR (MDRD) Af Amer 22 L, Est GFR (MDRD) Non-Af 18 L, BUN/Creatinine Ratio 17.1, Glucose 78, Calcium 8.2 L, Total Bilirubin 0.40, Direct Bilirubin 0.19, AST 14 L , ALT 28, Alkaline Phosphatase 85, Total Protein 5.4 L, Albumin 1.4 L, Globulin 4.0 01/02/23 06:52: POC Glucose 61 L 01/02/23 07:25: POC Glucose 66 L 01/02/23 08:14: POC Glucose 83 Micro: Microbiology 12/30/22 21:00 Urine, Clean Catch Urine Culture - Final Culture exhibits no growth. 12/30/22 20:45 Blood Culture (Wb) - Right Forearm Blood Culture - Final GNR lactose cell manager 12/30/22 20:40 Blood Culture (Wb) - Left Hand Blood Culture - Final Escherichia coli 12/31/22 10:15 Wound - Leg, Right Gram Stain - Final 12/31/22 10:15 Wound - Leg, Right Wound Culture - Preliminary GNR lactose cell manager Gram positive organism 01/01/23 10:42 Stool Stool Occult Blood (ARACELI) - Final Rhythm Strip Rhythm Strip: Sinus Tach Rate: 110 Ectopy: None Physical Exam Const oriented x3 and no apparent distress Resp normal respiratory effort Resp Narrative: Mildly tachypneic, but improved Extremity Extremity Narrative: Patient with improved of the right lower extremity and particular focus of cellulitis along the right medial thigh. Tenderness of this area is markedly decreased. While it remains blanchable, there is no obvious fluctuance or bull ae. Patient once again, demonstrates that he is motor intact on command. The lower leg is wrapped with Nehemiah bandages Assessment & Plan Assessment/Plan (1) Cellulitis of right lower extremity without foot: PLAN: Is a 42-year-old male who is admitted for management of right lower extremity cellulitis?particularly along the right medial thigh. Patient, again, reports decreased symptoms of pain and improved movement in this affected extremity. On exam, there is decreased edema and cellulitis. No obvious fluctuance or crepitus are palpated. Patient, again, demonstrates that he is motor intact. Micro results confirm E. coli bacteremia. In discussion with patient, he admits to using lettuce wraps to try to help with his lower extremity wounds and reports that he placed these directly atop open wounds. I shared with him that this certainly could represent a source for his infectious issues and strongly discouraged anything like this in the future. ? Continue elevation of right lower extremity and floating heel on pillows to avoid pressure wounds ? Continue IV antibiotics ? Continue serial extremity exams Charges/Coding Visit Charges Inpatient E&M: 42812 Subs Hosp L2
[2023-01-02 09:08] VITALS: BP 145/60; PULSE 79; RESP 18; TEMP 36.7; O2SAT 97
[2023-01-02 09:10] VITALS: PULSE 79
[2023-01-02] MEDS: hydrALAZINE 25 MG Tablet PO ×2 (09:10→21:23)
[2023-01-02] MEDS: Juven (unflavored) Packet 1 PACKET PO ×2 (09:10→16:56)
[2023-01-02] MEDS: amLODIPine 10 MG Tablet PO (09:10)
[2023-01-02 11:51] LABS: Bedside Glucose 141 mg/dL (74-106)
[2023-01-02] MEDS: 0.9% Saline Lock 10 ML Syringe IV (14:01)
[2023-01-02 14:06] LABS: Vancomycin, Random Level 26.4 ug/mL (0.0-15.0)
--- NOTE | 2023-01-02 15:05 | PHA.PHARE_ITS ---
Consult Pharmacy has been consulted to manage selected antiobiotic: Vancomycin Type of Consult: Follow-up Suspected Infection: Skin/Soft tissue Prior Doses of Antibiotics Received/Current Regimen: dose is currently being held Labs: Sodium 141 mmol/L (136-145) 01/02/23 05:50 Potassium 4.5 mmol/L (3.5-5.1) 01/02/23 05:50 Chloride 112 mmol/L (98-107) H 01/02/23 05:50 Carbon Dioxide 20.0 mmol/L (21.0-32.0) L 01/02/23 05:50 Anion Gap 9 (5-15) 01/02/23 05:50 BUN 67 mg/dL (7-18) H 01/02/23 05:50 Creatinine 3.92 mg/dL (0.70-1.30) H 01/02/23 05:50 Est GFR (MDRD) Af Amer 22 mL/min (>60) L 01/02/23 05:50 Est GFR (MDRD) Non-Af 18 mL/min (>60) L 01/02/23 05:50 BUN/Creatinine Ratio 17.1 RATIO (10-20) 01/02/23 05:50 Glucose 78 mg/dL (74-106) 01/02/23 05:50 Vancomycin Trough 32.5 ug/mL (5.0-15.0) H 01/01/23 14:00 Random Vancomycin 26.4 ug/mL (0.0-15.0) H 01/02/23 13:35 Microbiology: Microbiology 12/31/22 10:15 Wound - Leg, Right Gram Stain - Final 12/31/22 10:15 Wound - Leg, Right Wound Culture - Preliminary Escherichia coli Gram positive organism 12/30/22 21:00 Urine, Clean Catch Urine Culture - Final Culture exhibits no growth. 12/30/22 20:45 Blood Culture (Wb) - Right Forearm Blood Culture - Final GNR lactose machine tool technician instructor 12/30/22 20:40 Blood Culture (Wb) - Left Hand Blood Culture - Final Escherichia coli 01/01/23 10:42 Stool Stool Occult Blood (ARACELI) - Final Weight used for dosin.3 kg Estimated Creatinine Clearance: 34.5ml/min Goal Trough: 15-20 mcg/mL Pharmacy Plan for Drug Dosing: The vanc random level drawn at 13:35 today (approx 36 hours after the last dose of 1500mg before it was held) was 26.4. This is still above goal range (>20) so will continue to hold dosing at this time. Repeat another random level in 24 hours. Of note, the patient's SCr favio again to 3.92 today from 3.50 yesterday. Pharmacy Service will continue to monitor and adjust dosing as required. Follow-Up Labs: Trough Vancomycin - random Labs to be done on [date and time ordered]: 01/03/23 14:00
[2023-01-02 16:18] VITALS: BP 155/65; PULSE 96; RESP 18; TEMP 36.8; O2SAT 93
[2023-01-02 17:21] LABS: Bedside Glucose 160 mg/dL (74-106)
[2023-01-02 21:20] VITALS: BP 156/74; PULSE 92; RESP 18; TEMP 37.4; O2SAT 94
[2023-01-02 21:23] VITALS: PULSE 92
[2023-01-02 22:35] LABS: Bedside Glucose 175 mg/dL (74-106)
[2023-01-03] VITALS (8 sets, daily range): BP systolic 135–187; BP diastolic 63–82; PULSE 85–93; RESP 16–20; TEMP 36.7–37.1; O2SAT 94–97; BMI 55.4
[2023-01-03 03:35] LABS: Bedside Glucose 196 mg/dL (74-106)
--- NOTE | 2023-01-03 06:40 | PN.HOSP_ITS ---
Hospitalist Note Hgb has trended down further. Contacted per operations staff specialist security given continued decline. Guiac negative but to be cautious will hold heparin SC regimen for now.
--- NOTE | 2023-01-03 06:40 | PCM.HOSP.N ---
Hospitalist Note Hgb has trended down further. Contacted per staff genetic counselor given continued decline. Guiac negative but to be cautious will hold heparin SC regimen for now.
[2023-01-03 06:41] LABS: Absolute Lymphocyte Count 1.54 X10^3/uL (0.83-4.51); Absolute Neutrophil Count 5.5 X10^3/uL (2.0-7.7); Basophil# 0.06 X10^3/uL; Basophil% 0.8 % (0-1); Eosinophil# 0.14 X10^3/uL; Eosinophils% 1.8 % (0-5); Hematocrit 24.9 % (40-54); Hemoglobin 7.6 g/dL (13.0-16.5); Lymphocyte # 1.54 X10^3/ul (0.83-4.51); Lymphocyte % 19.9 % (19-41); Mean Corp Hgb Conc 30.5 g/dL (32-36); Mean Corpuscular Hgb 28.6 pg (27.0-32.0); Mean Corpuscular Volume 93.6 fL (80-94); Mean Platelet Vol. 9.4 fl (6.2-12.0); Monocyte# 0.47 X10^3/uL; Monocyte% 6.1 % (0-10); NRBC Flagged by Analyzer 0 % (0-5); Neutrophil # 5.47 X10^3/uL (2.7-7.7); Neutrophil % 70.9 % (47-70); Platelet Count 307 K/mm3 (150-450); RBC Distribution Width CV 13.2 % (11.6-14.6); RBC Distribution Width SD 45.4 fl (35.1-43.9); Red Blood Count 2.66 M/mm3 (4.6-6.2); White Blood Count 7.7 K/mm3 (4.4-11.0)
[2023-01-03 07:00] LABS: Anion Gap 9 (5-15); BUN 71 mg/dL (7-18); BUN/Creat Ratio 18.3 RATIO (10-20); Calcium,Total 8.3 mg/dL (8.5-10.1); Chloride 115 mmol/L (98-107); Creatinine, Serum 3.87 mg/dL (0.70-1.30); EST Glomerular Filtration Rate 18 mL/min (>60); Est Glom Filt Rate - Afr Amer 22 mL/min (>60); Estimated Creatinine Clearance 22.21 ml/min; Glucose 198 mg/dL (74-106); Potassium 4.9 mmol/L (3.5-5.1); Sodium Level 144 mmol/L (136-145)
[2023-01-03 07:05] LABS: Bedside Glucose 171 mg/dL (74-106)
--- NOTE | 2023-01-03 08:54 | PN.HOSP_ITS ---
Reason for Visit Reason for Visit: Diagnoses Cellulitis of right lower limb (12/30/22) Subjective Subjective No new issues. Objective Data Objective Data Vital Signs: Vital Signs Temp Pulse Resp BP Pulse Ox O2 Del Method O2 Flow Rate 37.1 C 90 20 H 135/66 H 95 Nasal Cannula 2 01/03/23 03:20 01/03/23 03:20 01/03/23 03:20 01/03/23 03:20 01/03/23 03:20 01/03/23 03:20 01/03/23 03:20 Oxygen Flow Rate (L/min) 2 Oxygen Delivery Method Nasal Cannula Weight: 155.8 kg Body Mass Index (BMI) 55.4 Intake & Output: Intake and Output for Last 24 Hours 01/01/23 01/02/23 01/03/23 22:59 23:59 23:59 Intake Total 240 / 240 Output Total 1200 / 1200 Balance -960 / -960 Lab / Micro Data Result Diagrams: 01/03/23 05:58 01/03/23 05:58 Labs: Laboratory Results - last 24 hr 01/02/23 11:29: POC Glucose 141 H 01/02/23 13:35: Random Vancomycin 26.4 H 01/02/23 16:54: POC Glucose 160 H 01/02/23 21:14: POC Glucose 175 H 01/03/23 03:16: POC Glucose 196 H 01/03/23 05:58: WBC 7.7, RBC 2.66 L, Hgb 7.6 L, Hct 24.9 L, MCV 93.6, MCH 28.6, MCHC 30.5 L, RDW Std Deviation 45.4 H, RDW Coeff of Mayra 13.2, Plt Count 307, MPV 9.4, Immature Gran % (Auto) 0.500, Neut % (Auto) 70.9 H, Lymph % (Auto) 19.9, [place] % (Auto) 6.1, Eos % (Auto) 1.8, Baso % (Auto) 0.8, Absolute Neuts (auto) 5.5, Absolute Lymphs (auto) 1.54, Nucleated RBC % 0 01/03/23 05:58: Sodium 144, Potassium 4.9, Chloride 115 H, Carbon Dioxide 20.0 L , Anion Gap 9, BUN 71 H, Creatinine 3.87 H, Estim Creat Clear Calc 22.21, Est GFR (MDRD) Af Amer 22 L, Est GFR (MDRD) Non-Af 18 L, BUN/Creatinine Ratio 18.3, Glucose 198 H, Calcium 8.3 L 01/03/23 06:43: POC Glucose 171 H Micro: Microbiology 12/31/22 10:15 Wound - Leg, Right Gram Stain - Final 12/31/22 10:15 Wound - Leg, Right Wound Culture - Final Escherichia coli Meth. resistant Staph. aureus Enterococcus faecalis Actinomyces odontolyticus 12/30/22 21:00 Urine, Clean Catch Urine Culture - Final Culture exhibits no growth. 12/30/22 20:45 Blood Culture (Wb) - Right Forearm Blood Culture - Final GNR lactose nurse advocate 12/30/22 20:40 Blood Culture (Wb) - Left Hand Blood Culture - Final Escherichia coli 01/01/23 10:42 Stool Stool Occult Blood (ARACELI) - Final Radiography Diagnostic Testing: Radiology Impression Renal Ultrasound 01/02/23 08:04 IMPRESSION: No hydronephrosis. Electronically Signed: Alejandro Schmidt MD at 17:44 EDT , Rhythm Strip Rhythm Strip: Sinus Tach Rate: 110 Ectopy: None Physical Exam Const alert and no apparent distress HEENT head/scalp atraumatic and moist oral mucous membranes Resp normal respiratory effort, no retractions, no use of accessory muscles and clear to auscultation bilaterally Cardio regular rate, regular rhythm, S1 normal heart sound and S2 normal heart sound GI normal to inspection, nondistended, normoactive bowel sounds, soft to palpation, non-tender and non-distended Extremity Extremity Narrative: legs wrapped--did not remove. Assessment & Plan Assessment/Plan (1) Cellulitis of right lower extremity without foot: PLAN: Right lower extremity cellulitis ? Patient admitted to a monitored bed started on broad-spectrum antibiotic therapy with clindamycin, vancomycin and Zosyn Surgery following in case I+D required 01/01/2023;seen admit to less pain involving the right lower extremity compared to when he was first admitted. De-escalated patient antibiotic therapy with discontinuation of clindamycin ? 01/02/2023. Zosyn discontinued replaced with cefepime in view of worsening kidney function Cx growing: E. coli, MRSA, E. faecais, actinomyces. (2) RADHA (acute kidney injury): PLAN: Acute kidney injury ? Patient creatinine on record from 12/10/2019 was 0.78 creatinine on admission was 2.09 started on IV fluid with subsequent monitoring with daily BMPs ordered. Potential nephrotoxic medications including furosemide and lisinopril held -01/02/2023; Patient did request for resumption of his Lasix in view of increasing swelling. 1 dose of 40 mg of IV Lasix given today prior. Patient kidney function however continues to worsen. The combination of Zosyn and vancomycin for his severe cellulitis involving his right lower extremity discontinued. Replaced Zosyn with cefepime. Ordered renal and bladder ultrasound and consultation placed to nephrology Appreciate nephrology input. Urine studies pending. PLAN: Plan Chronic conditions: * Anemia- Secondary to chronic disorder monitoring H&H and transfuse if patient becomes symptomatic or hemoglobin falls below 7 * Hypertension- Blood pressure controlled, home medications continued with dose adjustment as needed * Diabetes mellitus type II-patient's oral hypoglycemics held. Placed on long acting insulin, Accu-Cheks a.c. and at bedtime and covered with sliding scale insulin. A1c 7.4 * Class III obesity with BMI of 51.6? 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 On heparin Charges/Coding Visit Charges Inpatient E&M: 67658 Subs Hosp L2
[2023-01-03] MEDS: amLODIPine 10 MG Tablet PO (09:34)
[2023-01-03] MEDS: 0.9% Saline Lock 10 ML Syringe IV (09:34)
[2023-01-03] MEDS: Juven (unflavored) Packet 1 PACKET PO ×2 (09:37→16:23)
[2023-01-03] MEDS: hydrALAZINE 25 MG Tablet PO ×2 (09:39→21:40)
--- NOTE | 2023-01-03 09:58 | WOUNDNOTE ---
wound photo: right lower leg
--- NOTE | 2023-01-03 10:45 | CON.PCM.RE_ITS ---
Assessment & Plan Assessment/Plan (1) RADHA (acute kidney injury): (2) Cellulitis of right lower extremity without foot: PLAN: Plan Impression/plan: The patient is a 42-year-old man with past history of type 2 diabetes mellitus complicated by diabetic neuropathy, PAD status post left BKA, hypertension, hyperlipidemia, and morbid obesity. The patient was admitted to the hospital on 12/30/2022 with right lower extremity cellulitis. Nephrology is following for RADHA. Acute kidney injury on chronic kidney disease stage G3a. The patient likely has diabetic kidney disease at baseline. He is most recent serum creatinine from September 06, 2022 was 1.77 mg/dL, estimated GFR 48 mL/min. Differential diagnoses for RADHA is broad at this point. RADHA could be ischemic secondary to ATN related to sepsis or nephrotoxic from use of vancomycin. Another possibility would be interstitial nephritis from prior exposure to piperacillin. RADHA can also be from acute infection related glomerulonephritis. There is no evidence of urinary tract obstruction on renal ultrasound. Agree with holding STEFANY inhibitor and diuretic for now. I will recheck urine indices. We will check complements. C3 can be low with infection related glomerulonephritis. Since renal function has stabilized in the last 24 hours, there is no urgent need for kidney replacement therapy. If renal function fails to improve further, I will discuss alternative to vancomycin for gram-positive bacteria coverage with hospital medicine service. We will continue to monitor renal function, volume status, electrolytes, and acid-base status. Current medications are reviewed and are appropriate dose for his renal functio n. Hypertension. Current BP is reasonably controlled without STEFANY inhibitor or furosemide. Monitor BP on current medications. Acute metabolic acidosis. Serum bicarbonate level is low but stable at 20 mmol/L. Acidosis is likely due to RADHA/CKD. There is no diarrhea. We will follow serum bicarbonate level. There is no need to add sodium bicarbonate supplementation at this point. Anemia. Hemoglobin is low but stable at 7.6 g/dL. There is no role for VANNESSA from nephrology standpoint in the setting of acute kidney injury. Right lower extremity cellulitis. The patient is currently on cefepime and vancomycin. Okay from my standpoint to continue current antimicrobials. However, if renal function fails to stabilize or improve, we may need to find alternative to vancomycin since risk for ATN from vancomycin is higher in this patient. HPI Consult Data Date of Consult: 03/13/23 HPI Narrative Reason for Consultation: RADHA HPI Narrative: JASKARAN MOREL is a 42-year-old man with past history of type 2 diabetes mellitus complicated by diabetic neuropathy, PAD status post left BKA, hypertension, hyperlipidemia, and morbid obesity. The patient was admitted to the hospital on 12/30/2022 with cellulitis of the right lower extremity. Nephrology is asked to see the patient because of acute kidney injury. The patient has a history of CKD although he has not been seen by nephrology. His serum creatinine from 09/06/2022 was 1.77 mg/dL. On admission, serum creatinine was 2.09 mg/dL. Prior to admission, the patient had been on lisinopril and furosemide. Serum creatinine has increased between 12/30/2022 until 01/02/2023 from 2.09 mg/dL up to 3.92 mg/dL. Today, serum creatinine remains elevated but stable at 3.87 mg/dL. Today, the patient denies chest pain, shortness of breath at rest, nausea, vomiting, or diarrhea. He has actually been constipated since admission. There has been no prolonged hypotension since admission. Urinalysis from 12/30/2022 was negative for RBCs or WBCs. The patient does have 3-4+ proteinuria on dipstick. He has hypoalbuminemia. He was treated initially for cellulitis with IV piperac illin/tazobactam and vancomycin. He is currently on vancomycin and cefepime. The patient has not been getting NSAIDs. Renal ultrasound from 01/02/2023 did not show hydronephrosis. Kidney sizes were normal. [facility] Medical History Below-knee amputation of left lower extremity Charcot's joint Chronic anemia CKD (chronic kidney disease), stage III Diabetes mellitus type 2 in obese Diabetic neuropathy History of osteomyelitis HLD (hyperlipidemia) HTN (hypertension) Morbid obesity Home Medications Magnesium 2 tab PO BID supplement 12/10/19 [History Last Taken Unknown] Novolin 70/30 30 - 35 units SQ QHS diabetes 12/10/19 [History Last Taken Un known] Pantothenic Acid 1 tab PO BID supplement 12/10/19 [History Last Taken Unknown] Potassium 2 tab PO DAILY supplement 12/10/19 [History Last Taken Unknown] cholecalciferol (vitamin D3) 50 mcg (2,000 unit) capsule 2,000 unit PO BID supplement 12/10/19 [History Last Taken Unknown] lisinopril 5 mg tablet 20 mg PO DAILY 12/10/19 [History Last Taken Unknown] amlodipine 10 mg tablet 10 mg PO DAILY 12/30/22 [History Last Taken Unknown] furosemide 40 mg tablet 40 mg PO DAILY 12/30/22 [History Last Taken Unknown] hydralazine 25 mg tablet 25 mg PO BID 12/30/22 [History Last Taken Unknown] Allergy/AdvReac Type Severity Reaction Status Date / Time metformin AdvReac Abd Verified 12/31/22 01:02 cramps/diarrhea Family History other Surgical History History of surgery on lower extremity Status post left foot surgery Social History (Updated 12/30/22 @ 22:[address] Marline Wilhelm MD) household members: spouse Smoking Status: Former smoker how long ago did patient quit smoking: Quit ~ 15 years prior to current presentation. alcohol intake: never substance use type: does not use ROS ROS Narrative 08/02 ROS was done and is otherwise noncontributory to the HPI. Physical Exam Narrative General: Awake, alert, oriented x 3 and cooperative HEENT: AT/NC, EOMI, PERRLA, MMM, no carotid bruits or JVD noted Heart: Normal S1, S2, no murmur, no gallop, no rub audible. Lungs: Clear to auscultation anteriorly. Decreased at bases. Abdomen: Soft, morbidly obese, notable intertrigo, no obvious tenderness to palpation, difficult to assess distention given habitus, very distant bowel sounds, no obvious HSM but habitus makes this a very difficult exam. Extremities: No cyanosis, no clubbing, chronic right lower extremity swelling, status post BKA. Neurological: Patient awake, alert, oriented as noted, cognitive function intact; pupils equally reactive to light and accommodation, cranial nerves II- XII grossly normal, moving all 4 extremities except extremely limited right lower extremity movement secondary to pain elicited, strength accordingly moderately to severely globally decreased. Psychiatric: Affect appears uncomfortable, ill-appearing, no acute evidence of depressive or anxiety feelings. Lab / Micro Data Result Diagrams: 01/03/23 05:58 01/03/23 05:58 Labs: Laboratory Results - last 24 hr 01/02/23 11:29: POC Glucose 141 H 01/02/23 13:35: Random Vancomycin 26.4 H 01/02/23 16:54: POC Glucose 160 H 01/02/23 21:14: POC Glucose 175 H 01/03/23 03:16: POC Glucose 196 H 01/03/23 05:58: WBC 7.7, RBC 2.66 L, Hgb 7.6 L, Hct 24.9 L, MCV 93.6, MCH 28.6, MCHC 30.5 L, RDW Std Deviation 45.4 H, RDW Coeff of Mayra 13.2, Plt Count 307, MPV 9.4, Immature Gran % (Auto) 0.500, Neut % (Auto) 70.9 H, Lymph % (Auto) 19.9, [place] % (Auto) 6.1, Eos % (Auto) 1.8, Baso % (Auto) 0.8, Absolute Neuts (auto) 5.5, Absolute Lymphs (auto) 1.54, Nucleated RBC % 0 01/03/23 05:58: Sodium 144, Potassium 4.9, Chloride 115 H, Carbon Dioxide 20.0 L , Anion Gap 9, BUN 71 H, Creatinine 3.87 H, Estim Creat Clear Calc 22.21, Est GFR (MDRD) Af Amer 22 L, Est GFR (MDRD) Non-Af 18 L, BUN/Creatinine Ratio 18.3, Glucose 198 H, Calcium 8.3 L 01/03/23 06:43: POC Glucose 171 H Micro: Microbiology 12/31/22 10:15 Wound - Leg, Right Gram Stain - Final 12/31/22 10:15 Wound - Leg, Right Wound Culture - Final Escherichia coli Meth. resistant Staph. aureus Enterococcus faecalis Actinomyces odontolyticus 12/30/22 21:00 Urine, Clean Catch Urine Culture - Final Culture exhibits no growth. Rhythm Strip Rhythm Strip: Sinus Tach Rate: 110 Ectopy: None Radiology Impression Renal Ultrasound 01/02/23 08:04 IMPRESSION: No hydronephrosis. Electronically Signed: Alejandro Schmidt MD at 17:44 EDT ,
[2023-01-03] MEDS: Insulin Lispro 100 UNIT/ML INSULN.PEN SC ×3 (11:40→21:46)
[2023-01-03 12:05] LABS: Bedside Glucose 245 mg/dL (74-106)
[2023-01-03 14:50] LABS: Vancomycin, Random Level 19.3 ug/mL (0.0-15.0)
--- NOTE | 2023-01-03 15:43 | CHAPLAIN ---
Type of Pastoral Visit _x__ Initial Visit ___ Follow-up Visit ___ On-call Visit ___ General Patient Visit ___ Spiritual Assessment ___ Family Conference ___ Bereavement ___ Rapid Response ___ Code Blue ___ Other (describe below) Pastoral Care Referral From _x__ Patient ___ Family ___ Nurse ___ Physician ___ Linseed Oil Refiner ___ Mechanical Maintenance Engineer ___ Other (describe below) Sacrament/Intervention _x__ Active listening ___ Anointing ___ Cheondoism ___ Bereavement ___ Communion _x__ Radha exploration ___ _x__ Life review _x__ Prayer ___ Reconciliation ___ Sacrament of Sick _x__ Supportive presence ___ Wedding ___ Other (describe below) Pastoral Comments patient is welcoming of visit; pt has a family member and a neighbor in room; pt is talkative and explains his current and multiple health issues; pt has been an amputee and discusses that decision and affect on him; pt is reflective on his coming to terms with his illness and uses radha as a source of support and hope; pt has perspective of whatever God brown; pt is open to prayer support; presence was welcomed and pt expresses thankfulness
[2023-01-03 15:53] LABS: Urine Sodium 53 mmol/L (Not Establ.)
--- NOTE | 2023-01-03 16:31 | PCM.RX.CS ---
Consult Pharmacy has been consulted to manage selected antiobiotic: Vancomycin Type of Consult: Follow-up Suspected Infection: Skin/Soft tissue Labs: Sodium 144 mmol/L (136-145) 01/03/23 05:58 Potassium 4.9 mmol/L (3.5-5.1) 01/03/23 05:58 Chloride 115 mmol/L (98-107) H 01/03/23 05:58 Carbon Dioxide 20.0 mmol/L (21.0-32.0) L 01/03/23 05:58 Anion Gap 9 (5-15) 01/03/23 05:58 BUN 71 mg/dL (7-18) H 01/03/23 05:58 Creatinine 3.87 mg/dL (0.70-1.30) H 01/03/23 05:58 Est GFR (MDRD) Af Amer 22 mL/min (>60) L 01/03/23 05:58 Est GFR (MDRD) Non-Af 18 mL/min (>60) L 01/03/23 05:58 BUN/Creatinine Ratio 18.3 RATIO (10-20) 01/03/23 05:58 Glucose 198 mg/dL (74-106) H 01/03/23 05:58 Vancomycin Trough 32.5 ug/mL (5.0-15.0) H 01/01/23 14:00 Random Vancomycin 19.3 ug/mL (0.0-15.0) H 01/03/23 13:55 Microbiology: Microbiology 12/31/22 10:15 Wound - Leg, Right Gram Stain - Final 12/31/22 10:15 Wound - Leg, Right Wound Culture - Final Escherichia coli Meth. resistant Staph. aureus Enterococcus faecalis Actinomyces odontolyticus 12/30/22 21:00 Urine, Clean Catch Urine Culture - Final Culture exhibits no growth. 12/30/22 20:45 Blood Culture (Wb) - Right Forearm Blood Culture - Final GNR lactose melt supervisor 12/30/22 20:40 Blood Culture (Wb) - Left Hand Blood Culture - Final Escherichia coli 01/01/23 10:42 Stool Stool Occult Blood (ARACELI) - Final Goal Trough: 15-20 mcg/mL Pharmacy Plan for Drug Dosing: VANCOMYCIN LEVEL RECEIVED Current Vancomycin Dose: on hold due to elevated trough/level Number of Doses Received: Vancomycin Level: random level resulted at 19.3 Hours Since Last Dose: 60 hours since last 1500mg dose Renal Function: SrCr 3.87 Renal Function Trend: SrCr improved slightly from 3.92 on 01/02/23 but still increased from 2.09 on 12/31/22 Lab/Micro: Vancomycin Plan/Comments: recommend continuing to hold Vancomycin due to renal function. Will check a random level in the morning of 01/04/23 Pending Level: 01/04/23 at 0800 Pharmacy Service will continue to monitor and adjust dosing as required. Follow-Up Labs: Trough Vancomycin - 01/04/23 at 0800
[2023-01-03 16:46] LABS: Bedside Glucose 219 mg/dL (74-106)
[2023-01-03] MEDS: Nystatin Powder 15gm Bottle 1 APPLIC TOPICAL (21:42)
[2023-01-03] MEDS: Insulin Human 75/25 Kwickpen 35 UNIT SC (21:46)
[2023-01-03 23:21] LABS: Bedside Glucose 280 mg/dL (74-106)
[2023-01-04] VITALS (13 sets, daily range): BP systolic 145–183; BP diastolic 62–84; PULSE 73–92; RESP 16–22; TEMP 36.2–37.2; O2SAT 93–96; BMI 56.1
[2023-01-04] MEDS: Insulin Lispro 100 UNIT/ML INSULN.PEN SC ×4 (06:29→21:50)
[2023-01-04] MEDS: Nystatin Powder 15gm Bottle 1 APPLIC TOPICAL ×2 (06:29→14:59)
[2023-01-04 06:50] LABS: Bedside Glucose 183 mg/dL (74-106)
--- NOTE | 2023-01-04 08:05 | PN.HOSP_ITS ---
Reason for Visit Reason for Visit: Diagnoses Cellulitis of right lower limb (12/30/22) Acute kidney failure, unspecified (12/30/22) Subjective Subjective No events overnight. Objective Data Objective Data Vital Signs: Vital Signs Temp Pulse Resp BP Pulse Ox O2 Del Method O2 Flow Rate 36.2 C L 73 18 145/62 H 93 Room Air 2 01/04/23 06:00 01/04/23 06:00 01/04/23 06:00 01/04/23 06:00 01/04/23 06:00 01/04/23 06:00 01/03/23 09:19 Oxygen Flow Rate (L/min) 2 Oxygen Delivery Method Room Air Weight: 157.8 kg Body Mass Index (BMI) 56.1 Intake & Output: Intake and Output for Last 24 Hours 01/02/23 01/03/23 01/04/23 23:59 23:59 23:59 Intake Total 970 / 970 Output Total 2700 / 2700 100 / 100 Balance -1730 / -1730 -100 / -100 Lab / Micro Data Result Diagrams: 01/04/23 08:05 01/04/23 08:05 Labs: Laboratory Results - last 24 hr 01/03/23 11:38: POC Glucose 245 H 01/03/23 13:55: Random Vancomycin 19.3 H 01/03/23 15:12: Urine Creatinine 52.30 01/03/23 15:12: U Random Total Protein 416.0 H 01/03/23 15:12: Ur Random Sodium 53 01/03/23 16:22: POC Glucose 219 H 01/03/23 21:46: POC Glucose 280 H 01/04/23 06:28: POC Glucose 183 H Micro: Microbiology 12/31/22 10:15 Wound - Leg, Right Gram Stain - Final 12/31/22 10:15 Wound - Leg, Right Wound Culture - Final Escherichia coli Meth. resistant Staph. aureus Enterococcus faecalis Actinomyces odontolyticus 12/30/22 21:00 Urine, Clean Catch Urine Culture - Final Culture exhibits no growth. 12/30/22 20:45 Blood Culture (Wb) - Right Forearm Blood Culture - Final GNR lactose fire prevention engineer 12/30/22 20:40 Blood Culture (Wb) - Left Hand Blood Culture - Final Escherichia coli 01/01/23 10:42 Stool Stool Occult Blood (ARACELI) - Final Rhythm Strip Rhythm Strip: Sinus Tach Rate: 110 Ectopy: None Physical Exam Const alert and no apparent distress Neck no lymphadenopathy Resp normal respiratory effort, no retractions, no use of accessory muscles and clear to auscultation bilaterally Cardio regular rate, regular rhythm, S1 normal heart sound and S2 normal heart sound GI normal to inspection, nondistended, normoactive bowel sounds, soft to palpation, non-tender and non-distended Extremity normal to inspection Assessment & Plan Assessment/Plan (1) Cellulitis of right lower extremity without foot: PLAN: Right lower extremity cellulitis Patient admitted to a monitored bed started on broad-spectrum antibiotic therapy with clindamycin, vancomycin and Zosyn Surgery following in case I+D required 01/01/2023;seen admit to less pain involving the right lower extremity compared to when he was first admitted. De-escalated patient antibiotic therapy with discontinuation of clindamycin 01/02/2023. Zosyn discontinued replaced with cefepime in view of worsening kidney function Cx growing: E. coli, MRSA, E. faecais, actinomyces. Change abx to CTX and linezolid (2) RADHA (acute kidney injury): PLAN: Acute kidney injury May be ATN possibly from vancomycin -01/02/2023; Patient did request for resumption of his Lasix in view of increasing swelling. 1 dose of 40 mg of IV Lasix given today prior. Patient kidney function however continues to worsen. The combination of Zosyn and vancomycin for his severe cellulitis involving his right lower extremity discontinued. Replaced Zosyn with cefepime. Ordered renal and bladder ultrasound and consultation placed to nephrology Appreciate nephrology input. Creatinine improved (3) Anasarca: PLAN: Weight up 12kg from admission. DW ozzy Buck to start furosemide. He recommended 80mg bolus and gtt at 10mg/h. PLAN: Plan Chronic conditions: * Anemia- Secondary to chronic disorder monitoring H&H and transfuse if patient becomes symptomatic or hemoglobin falls below 7 * Hypertension- Blood pressure controlled, home medications continued with dose adjustment as needed * Diabetes mellitus type II-patient's oral hypoglycemics held. Placed on long acting insulin, Accu-Cheks a.c. and at bedtime and covered with sliding scale insulin. A1c 7.4 * Class III obesity with BMI of 51.6? 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 On heparin Charges/Coding Visit Charges Inpatient E&M: 52191 Subs Hosp L2
[2023-01-04 08:50] LABS: Absolute Lymphocyte Count 2.07 X10^3/uL (0.83-4.51); Absolute Neutrophil Count 4.5 X10^3/uL (2.0-7.7); Basophil# 0.05 X10^3/uL; Basophil% 0.7 % (0-1); Hematocrit 27.6 % (40-54); Hemoglobin 8.8 g/dL (13.0-16.5); Lymphocyte # 2.07 X10^3/ul (0.83-4.51); Lymphocyte % 27.6 % (19-41); Mean Corp Hgb Conc 31.9 g/dL (32-36); Mean Corpuscular Hgb 29.2 pg (27.0-32.0); Mean Corpuscular Volume 91.7 fL (80-94); Monocyte# 0.51 X10^3/uL; Monocyte% 6.8 % (0-10); NRBC Flagged by Analyzer 0 % (0-5); Neutrophil # 4.53 X10^3/uL (2.7-7.7); Neutrophil % 60.2 % (47-70); Platelet Count 370 K/mm3 (150-450); RBC Distribution Width CV 13.1 % (11.6-14.6); RBC Distribution Width SD 43.5 fl (35.1-43.9); Red Blood Count 3.01 M/mm3 (4.6-6.2); White Blood Count 7.5 K/mm3 (4.4-11.0)
[2023-01-04 09:24] LABS: Albumin, Serum 1.5 g/dL (3.2-5.0); BUN 72 mg/dL (7-18); BUN/Creat Ratio 20.3 RATIO (10-20); Calcium,Total 8.5 mg/dL (8.5-10.1); Chloride 114 mmol/L (98-107); Creatinine, Serum 3.55 mg/dL (0.70-1.30); EST Glomerular Filtration Rate 20 mL/min (>60); Est Glom Filt Rate - Afr Amer 24 mL/min (>60); Estimated Creatinine Clearance 24.21 ml/min; Glucose 192 mg/dL (74-106); Phosphorus 6.1 mg/dL (2.5-4.9); Potassium 4.7 mmol/L (3.5-5.1); Sodium Level 142 mmol/L (136-145)
[2023-01-04 09:31] LABS: Vancomycin, Random Level 16.3 ug/mL (0.0-15.0)
[2023-01-04] MEDS: Juven (unflavored) Packet 1 PACKET PO ×2 (10:21→16:55)
[2023-01-04] MEDS: hydrALAZINE 25 MG Tablet PO ×2 (10:21→21:50)
[2023-01-04] MEDS: 0.9% Saline Lock 10 ML Syringe IV ×3 (10:22→17:03)
[2023-01-04] MEDS: amLODIPine 10 MG Tablet PO (10:22)
[2023-01-04] MEDS: Ceftriaxone 1 GM/50 ML BAG IV (10:37)
[2023-01-04] MEDS: Linezolid 600 MG 600 MG/300 ML BAG 200 MG IV ×2 (10:41→21:44)
[2023-01-04 11:55] LABS: Bedside Glucose 303 mg/dL (74-106)
[2023-01-04] MEDS: Furosemide 100 MG/10 ML Vial 80 MG IV (14:49)
[2023-01-04] MEDS: Furosemide 500 MG in Empty Viaflex 50 mL 1 EACH CONT INF (14:58)
--- NOTE | 2023-01-04 15:17 | PN.RENAL_ITS ---
Documented by User: PRITI Odonnell 01/04/23 15:31 Subjective Subjective Following for RADHA on probable CKD Patient is resting in bed. Family at bedside. Patient denies any complaints. No nausea, vomiting or diarrhea. Objective Data Objective Data Vital Signs: Vital Signs Temp Pulse Resp BP Pulse Ox O2 Del Method O2 Flow Rate 98.7 F 87 18 158/71 H 95 Room Air 2 01/04/23 14:50 01/04/23 14:50 01/04/23 14:50 01/04/23 14:50 01/04/23 14:50 01/04/23 14:50 01/04/23 08:38 Oxygen Flow Rate (L/min) 2 Oxygen Delivery Method Room Air Weight: 157.8 kg Body Mass Index (BMI) 56.1 Intake & Output: Intake and Output for Last 24 Hours 01/02/23 01/03/23 01/04/23 23:59 23:59 23:59 Intake Total 970 / 970 630 / 630 Output Total 2700 / 2700 825 / 825 Balance -1730 / -1730 -195 / -195 Lab / Micro Data Result Diagrams: 01/04/23 08:05 01/04/23 08:05 Labs: Laboratory Results - last 24 hr 01/03/23 15:12: Urine Creatinine 52.30 01/03/23 15:12: U Random Total Protein 416.0 H 01/03/23 15:12: Ur Random Sodium 53 01/03/23 16:22: POC Glucose 219 H 01/03/23 21:46: POC Glucose 280 H 01/04/23 06:28: POC Glucose 183 H 01/04/23 08:05: Sodium 142, Potassium 4.7, Chloride 114 H, Carbon Dioxide 20.0 L , BUN 72 H, Creatinine 3.55 H, Estim Creat Clear Calc 24.21, Est GFR (MDRD) Af Amer 24 L, Est GFR (MDRD) Non-Af 20 L, BUN/Creatinine Ratio 20.3 H, Glucose 192 H, Calcium 8.5, Phosphorus 6.1 H, Albumin 1.5 L 01/04/23 08:05: WBC 7.5, RBC 3.01 L, Hgb 8.8 L, Hct 27.6 L, MCV 91.7, MCH 29.2, MCHC 31.9 L, RDW Std Deviation 43.5, RDW Coeff of Mayra 13.1, Plt Count 370, MPV 9.0, Immature Gran % (Auto) 0.700, Neut % (Auto) 60.2, Lymph % (Auto) 27.6, [place] % (Auto) 6.8, Eos % (Auto) 4.0, Baso % (Auto) 0.7, Absolute Neuts (auto) 4.5, Absolute Lymphs (auto) 2.07, Nucleated RBC % 0 01/04/23 08:05: Random Vancomycin 16.3 H 01/04/23 11:33: POC Glucose 303 H Micro: Microbiology 12/31/22 10:15 Wound - Leg, Right Gram Stain - Final 12/31/22 10:15 Wound - Leg, Right Wound Culture - Final Escherichia coli Meth. resistant Staph. aureus Enterococcus faecalis Actinomyces odontolyticus 12/30/22 21:00 Urine, Clean Catch Urine Culture - Final Culture exhibits no growth. 12/30/22 20:45 Blood Culture (Wb) - Right Forearm Blood Culture - Final GNR lactose box attacher 12/30/22 20:40 Blood Culture (Wb) - Left Hand Blood Culture - Final Escherichia coli 01/01/23 10:42 Stool Stool Occult Blood (ARACELI) - Final Rhythm Strip Rhythm Strip: Sinus Tach Rate: 110 Ectopy: None Physical Exam Narrative General: Awake, alert, oriented x 3 and cooperative Heart: Normal S1, S2, no murmur, no gallop, no rub audible. Lungs: Clear to auscultation Abdomen: Soft, morbidly obese Extremities: chronic right lower extremity swelling. Status post left BKA. Assessment & Plan Assessment/Plan (1) RADHA (acute kidney injury): (2) Cellulitis of right lower extremity without foot: PLAN: Plan Impression/plan: The patient is a 42-year-old man with past history of type 2 diabetes mellitus complicated by diabetic neuropathy, PAD status post left BKA, hypertension, hyperlipidemia, and morbid obesity. The patient was admitted to the hospital on 12/30/2022 with right lower extremity cellulitis. Nephrology is following for RADHA. - Acute kidney injury on chronic kidney disease stage G3a The patient likely has diabetic kidney disease at baseline. UPCR 8gm. Most recent serum creatinine September 06, 2022 was 1.77 mg/dL, estimated GFR 48 mL/min. Probable baseline serum creatinine 1.7 to 2 mg/dL. Today reviewed with patient importance of good blood sugar control and good blood pressure control as well as avoiding nephrotoxic agents especially NSAIDs to help slow possible CKD progression. Patient reports had taken ibuprofen at home before admission for leg pain. C3, C4 pending Differential diagnoses for RADHA is broad at this point. RADHA could be ischemic secondary to ATN related to sepsis or nephrotoxic from use of vancomycin. Another possibility would be interstitial nephritis from prior exposure to piperacillin. RADHA can also be from acute infection related glomerulonephritis. Renal ultrasound did not show any hydronephrosis Serum creatinine 2.09 mg/dL on admission, increased to 3.92 mg/dL on 01/02 and today creatinine has improved to 3.55 mg/dL. At this time there is no acute indication for BRADLEY LINEBACKER CREWMEMBER. Agree with holding STEFANY inhibitor and diuretic for now. - Current BP is reasonably controlled on Hydralazine and Norvasc. - Serum bicarbonate level is low but stable at 20 mmol/L. Acidosis is likely secondary to RADHA/CKD. There is no diarrhea. We will follow serum bicarbonate level. There is no need to add sodium bicarbonate supplementation at this point. - Hemoglobin is low but stable. There is no role for VANNESSA from nephrology standpoint in the setting of RADHA. - Right lower extremity cellulitis. The patient is currently on linezolid and ceftriaxone Documented by User: Dr. Lianna Roy MD 01/04/23 17:47 Objective Data Lab / Micro Data Result Diagrams: 01/04/23 08:05 01/04/23 08:05 Assessment & Plan Assessment/Plan (1) RADHA (acute kidney injury): (2) Cellulitis of right lower extremity without foot: PLAN: Plan Impression/plan: The patient is a 42-year-old man with past history of type 2 diabetes mellitus complicated by diabetic neuropathy, PAD status post left BKA, hypertension, hyperlipidemia, and morbid obesity. The patient was admitted to the hospital on 12/30/2022 with right lower extremity cellulitis. Nephrology is following for RADHA. - Acute kidney injury on chronic kidney disease stage G3a The patient likely has diabetic kidney disease at baseline. UPCR 8gm. Most recent serum creatinine September 06, 2022 was 1.77 mg/dL, estimated GFR 48 mL/min. Probable baseline serum creatinine 1.7 to 2 mg/dL. Today reviewed with patient importance of good blood sugar control and good blood pressure control as well as avoiding nephrotoxic agents especially NSAIDs to help slow possible CKD progression. Patient reports had taken ibuprofen at home before admission for leg pain. C3, C4 pending Differential diagnoses for RADHA is broad at this point. RADHA could be ischemic secondary to ATN related to sepsis or nephrotoxic from use of vancomycin. Another possibility would be interstitial nephritis from prior exposure to pipe racillin. RADHA can also be from acute infection related glomerulonephritis. Renal ultrasound did not show any hydronephrosis Serum creatinine 2.09 mg/dL on admission, increased to 3.92 mg/dL on 01/02 and today creatinine has improved to 3.55 mg/dL. At this time there is no acute indication for BRADLEY LINEBACKER CREWMEMBER. Agree with holding STEFANY inhibitor and diuretic for now. - Current BP is reasonably controlled on Hydralazine and Norvasc. - Serum bicarbonate level is low but stable at 20 mmol/L. Acidosis is likely secondary to RADHA/CKD. There is no diarrhea. We will follow serum bicarbonate level. There is no need to add sodium bicarbonate supplementation at this point. - Hemoglobin is low but stable. There is no role for VANNESSA from nephrology standpoint in the setting of RADHA. - Right lower extremity cellulitis. The patient is currently on linezolid and ceftriaxone Nephrology attending addendum: The patient seen and examined. Nurse practitioner's note reflects my evaluation and management decision. Renal function has stabilized over the last 24 hours. Agree with using alternative antimicrobial in case the patient has vancomycin induced ATN. Since renal function has stabilized, we can use Lasix to help treat volume overl oad. We will monitor renal function closely while we are diuresing the patient. Nephrology plan discussed with Dr. Tuttle. Garo Paez MD
[2023-01-04] MEDS: hydrALAZINE 20 MG/ML Vial 10 MG IV (17:03)
[2023-01-04 17:40] LABS: Bedside Glucose 253 mg/dL (74-106)
[2023-01-04] MEDS: Insulin Human 75/25 Kwickpen 35 UNIT SC (21:49)
[2023-01-05] VITALS (7 sets, daily range): BP systolic 140–179; BP diastolic 56–68; PULSE 73–86; RESP 16–18; TEMP 36.6–37.3; O2SAT 91–97; BMI 53.6
[2023-01-05 01:06] LABS: Bedside Glucose 243 mg/dL (74-106)
--- NOTE | 2023-01-05 04:07 | PCA ---
RN has been notified of weight differential
[2023-01-05 05:22] LABS: Absolute Lymphocyte Count 1.85 X10^3/uL (0.83-4.51); Absolute Neutrophil Count 3.9 X10^3/uL (2.0-7.7); Basophil# 0.06 X10^3/uL; Basophil% 0.9 % (0-1); Eosinophil# 0.38 X10^3/uL; Eosinophils% 5.7 % (0-5); Hematocrit 24.8 % (40-54); Hemoglobin 7.8 g/dL (13.0-16.5); Lymphocyte # 1.85 X10^3/ul (0.83-4.51); Lymphocyte % 27.5 % (19-41); Mean Corp Hgb Conc 31.5 g/dL (32-36); Mean Corpuscular Hgb 28.4 pg (27.0-32.0); Mean Corpuscular Volume 90.2 fL (80-94); Mean Platelet Vol. 8.6 fl (6.2-12.0); Monocyte# 0.48 X10^3/uL; Monocyte% 7.1 % (0-10); NRBC Flagged by Analyzer 0 % (0-5); Neutrophil # 3.91 X10^3/uL (2.7-7.7); Neutrophil % 58.2 % (47-70); Platelet Count 322 K/mm3 (150-450); RBC Distribution Width CV 12.9 % (11.6-14.6); RBC Distribution Width SD 42.1 fl (35.1-43.9); Red Blood Count 2.75 M/mm3 (4.6-6.2); White Blood Count 6.7 K/mm3 (4.4-11.0)
[2023-01-05 05:47] LABS: Anion Gap 8 (5-15); BUN 77 mg/dL (7-18); BUN/Creat Ratio 23.6 RATIO (10-20); Calcium,Total 8.7 mg/dL (8.5-10.1); Chloride 111 mmol/L (98-107); Creatinine, Serum 3.26 mg/dL (0.70-1.30); EST Glomerular Filtration Rate 22 mL/min (>60); Est Glom Filt Rate - Afr Amer 27 mL/min (>60); Estimated Creatinine Clearance 26.37 ml/min; Glucose 143 mg/dL (74-106); Potassium 4.2 mmol/L (3.5-5.1); Sodium Level 142 mmol/L (136-145)
[2023-01-05] MEDS: Nystatin Powder 15gm Bottle 1 APPLIC TOPICAL ×2 (06:41→22:35)
[2023-01-05 08:16] LABS: Complement C3 172 mg/dL (82-167)
--- NOTE | 2023-01-05 08:29 | PN.HOSP_ITS ---
Reason for Visit Reason for Visit: Diagnoses Cellulitis of right lower limb (12/30/22) Acute kidney failure, unspecified (12/30/22) Generalized edema (12/30/22) Subjective Subjective No events overnight. Does not note any change in his lower extremity edema. Objective Data Objective Data Vital Signs: Vital Signs Temp Pulse Resp BP Pulse Ox O2 Del Method O2 Flow Rate 36.8 C 73 18 140/56 H 95 Room Air 2 01/05/23 03:19 01/05/23 03:19 01/05/23 03:19 01/05/23 03:19 01/05/23 03:19 01/05/23 07:44 01/04/23 08:38 Oxygen Flow Rate (L/min) 2 Oxygen Delivery Method Room Air Weight: 150.6 kg Body Mass Index (BMI) 53.6 Intake & Output: Intake and Output for Last 24 Hours 01/03/23 01/04/23 01/05/23 23:59 23:59 23:59 Intake Total 970 / 970 990 / 990 300 / 300 Output Total 2700 / 2700 3500 / 3500 1075 / 1075 Balance -1730 / -1730 -2510 / -2510 -775 / -775 Lab / Micro Data Result Diagrams: 01/05/23 05:03 01/05/23 05:03 Labs: Laboratory Results - last 24 hr 01/04/23 08:05: Complement C3 172 H, Complement C4 45 H 01/04/23 08:05: Sodium 142, Potassium 4.7, Chloride 114 H, Carbon Dioxide 20.0 L , BUN 72 H, Creatinine 3.55 H, Estim Creat Clear Calc 24.21, Est GFR (MDRD) Af Amer 24 L, Est GFR (MDRD) Non-Af 20 L, BUN/Creatinine Ratio 20.3 H, Glucose 192 H, Calcium 8.5, Phosphorus 6.1 H, Albumin 1.5 L 01/04/23 08:05: WBC 7.5, RBC 3.01 L, Hgb 8.8 L, Hct 27.6 L, MCV 91.7, MCH 29.2, MCHC 31.9 L, RDW Std Deviation 43.5, RDW Coeff of Mayra 13.1, Plt Count 370, MPV 9.0, Immature Gran % (Auto) 0.700, Neut % (Auto) 60.2, Lymph % (Auto) 27.6, Harrison % (Auto) 6.8, Eos % (Auto) 4.0, Baso % (Auto) 0.7, Absolute Neuts (auto) 4.5, Absolute Lymphs (auto) 2.07, Nucleated RBC % 0 01/04/23 08:05: Random Vancomycin 16.3 H 01/04/23 11:33: POC Glucose 303 H 01/04/23 16:52: POC Glucose 253 H 01/04/23 21:49: POC Glucose 243 H 01/05/23 05:03: WBC 6.7, RBC 2.75 L, Hgb 7.8 L, Hct 24.8 L, MCV 90.2, MCH 28.4, MCHC 31.5 L, RDW Std Deviation 42.1, RDW Coeff of Mayra 12.9, Plt Count 322, MPV 8.6, Immature Gran % (Auto) 0.600, Neut % (Auto) 58.2, Lymph % (Auto) 27.5, Harrison % (Auto) 7.1, Eos % (Auto) 5.7 H, Baso % (Auto) 0.9, Absolute Neuts (auto) 3.9, Absolute Lymphs (auto) 1.85, Nucleated RBC % 0 01/05/23 05:03: Sodium 142, Potassium 4.2, Chloride 111 H, Carbon Dioxide 23.0, Anion Gap 8, BUN 77 H, Creatinine 3.26 H, Estim Creat Clear Calc 26.37, Est GFR (MDRD) Af Amer 27 L, Est GFR (MDRD) Non-Af 22 L, BUN/Creatinine Ratio 23.6 H, Glucose 143 H, Calcium 8.7 Micro: Microbiology 12/31/22 10:15 Wound - Leg, Right Gram Stain - Final 12/31/22 10:15 Wound - Leg, Right Wound Culture - Final Escherichia coli Meth. resistant Staph. aureus Enterococcus faecalis Actinomyces odontolyticus 12/30/22 21:00 Urine, Clean Catch Urine Culture - Final Culture exhibits no growth. 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 Afebrile. No respiratory distress. No conversational dyspnea. Resp normal respiratory effort, no retractions, no use of accessory muscles and clear to auscultation bilaterally Cardio regular rate, regular rhythm, S1 normal heart sound and S2 normal heart sound GI normal to inspection, nondistended, normoactive bowel sounds and soft to palpation Extremity Extremity Narrative: Bilateral lymphedema wraps in place. Patient's prosthetic is on his left lower extremity. Posteriorly, on his lower extremities, he does have profound edema. Neuro oriented x3 and no focal motor deficits Sensorium / Orientation: awake and alert Psych affect normal Assessment & Plan Assessment/Plan (1) Cellulitis of right lower extremity without foot: PLAN: Right lower extremity cellulitis Patient admitted to a monitored bed started on broad-spectrum antibiotic therapy with clindamycin, vancomycin and Zosyn Surgery following in case I+D required 01/01/2023;seen admit to less pain involving the right lower extremity compared to when he was first admitted. De-escalated patient antibiotic therapy with discontinuation of clindamycin 01/02/2023. Zosyn discontinued replaced with cefepime in view of worsening kidney function Cx growing: E. coli, MRSA, E. faecais, actinomyces. Change abx to CTX and linezolid Continue with antibiotics through the . Can be changed over to oral upon discharge if necessary with levofloxacin and linezolid. (2) RADHA (acute kidney injury): PLAN: Acute kidney injury May be ATN possibly from vancomycin -01/02/2023; Patient did request for resumption of his Lasix in view of increasing swelling. 1 dose of 40 mg of IV Lasix given today prior. Patient kidney function however continues to worsen. The combination of Zosyn and vancomycin for his severe cellulitis involving his right lower extremity discontinued. Replaced Zosyn with cefepime. Ordered renal and bladder ultrasound and consultation placed to nephrology Appreciate nephrology input. Creatinine improved (3) Anasarca: PLAN: DW ozzy Buck to start furosemide. He recommended 80mg bolus and gtt at 10mg/h. PLAN: Plan Chronic conditions: * Anemia- Secondary to chronic disorder monitoring H&H and transfuse if patient becomes symptomatic or hemoglobin falls below 7 * Hypertension- Blood pressure controlled, home medications continued with dose adjustment as needed * Diabetes mellitus type II-patient's oral hypoglycemics held. Placed on long acting insulin, Accu-Cheks a.c. and at bedtime and covered with sliding scale insulin. A1c 7.4 * Class III obesity with BMI of 51.6? 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 On heparin Disposition: To be determined. Ideally, I would like to see further i mprovements of his lymphedema prior to discharge. At this point, we will anticipate the requiring hospitalization for another 48 hours. Charges/Coding Visit Charges Inpatient E&M: 78763 Subs Hosp L2
[2023-01-05] MEDS: Linezolid 600 MG 600 MG/300 ML BAG 200 MG IV ×2 (09:12→23:01)
[2023-01-05] MEDS: Ceftriaxone 1 GM/50 ML BAG IV (09:12)
[2023-01-05] MEDS: Juven (unflavored) Packet 1 PACKET PO ×2 (09:12→16:01)
[2023-01-05] MEDS: amLODIPine 10 MG Tablet PO (09:13)
[2023-01-05] MEDS: hydrALAZINE 25 MG Tablet PO ×2 (09:13→22:34)
--- NOTE | 2023-01-05 09:49 | PCM.PN.REN ---
Subjective Subjective Following for acute kidney injury on chronic kidney disease. The patient still has significant anasarca/edema. The patient denies chest pain or shortness of breath at rest. There is no nausea or vomiting. Objective Data Objective Data Vital Signs: Vital Signs Temp Pulse Resp BP Pulse Ox O2 Del Method O2 Flow Rate 97.8 F 86 18 179/68 H 97 Room Air 2 01/05/23 09:09 01/05/23 09:13 01/05/23 09:09 01/05/23 09:09 01/05/23 09:09 01/05/23 09:09 01/04/23 08:38 Oxygen Flow Rate (L/min) 2 Oxygen Delivery Method Room Air Weight: 150.6 kg Body Mass Index (BMI) 53.6 Intake & Output: Intake and Output for Last 24 Hours 01/03/23 01/04/23 01/05/23 23:59 23:59 23:59 Intake Total 970 / 970 990 / 990 300 / 300 Output Total 2700 / 2700 3500 / 3500 1075 / 1075 Balance -1730 / -1730 -2510 / -2510 -775 / -775 Lab / Micro Data Result Diagrams: 01/05/23 05:03 01/05/23 05:03 Labs: Laboratory Results - last 24 hr 01/04/23 08:05: Complement C3 172 H, Complement C4 45 H 01/04/23 11:33: POC Glucose 303 H 01/04/23 16:52: POC Glucose 253 H 01/04/23 21:49: POC Glucose 243 H 01/05/23 05:03: WBC 6.7, RBC 2.75 L, Hgb 7.8 L, Hct 24.8 L, MCV 90.2, MCH 28.4, MCHC 31.5 L, RDW Std Deviation 42.1, RDW Coeff of Mayra 12.9, Plt Count 322, MPV 8.6, Immature Gran % (Auto) 0.600, Neut % (Auto) 58.2, Lymph % (Auto) 27.5, [place] % (Auto) 7.1, Eos % (Auto) 5.7 H, Baso % (Auto) 0.9, Absolute Neuts (auto) 3.9, Absolute Lymphs (auto) 1.85, Nucleated RBC % 0 01/05/23 05:03: Sodium 142, Potassium 4.2, Chloride 111 H, Carbon Dioxide 23.0, Anion Gap 8, BUN 77 H, Creatinine 3.26 H, Estim Creat Clear Calc 26.37, Est GFR (MDRD) Af Amer 27 L, Est GFR (MDRD) Non-Af 22 L, BUN/Creatinine Ratio 23.6 H, Glucose 143 H, Calcium 8.7 Micro: Microbiology 12/31/22 10:15 Wound - Leg, Right Gram Stain - Final 12/31/22 10:15 Wound - Leg, Right Wound Culture - Final Escherichia coli Meth. resistant Staph. aureus Enterococcus faecalis Actinomyces odontolyticus 12/30/22 21:00 Urine, Clean Catch Urine Culture - Final Culture exhibits no growth. 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 Lungs: Clear to auscultation Abdomen: Soft, morbidly obese Extremities: 3-4+ right lower extremity edema, leg is wrapped in STEFANY bandage which was not taken down during this examination. Status post left BKA. Assessment & Plan Assessment/Plan (1) RADHA (acute kidney injury): (2) Chronic kidney disease (CKD) stage G3a/A3, moderately decreased glomerular filtration rate (GFR) between 45-59 mL/min/1.73 square meter and albuminuria creatinine ratio greater than 300 mg/g: (3) HTN (hypertension): (4) Cellulitis of right lower extremity without foot: PLAN: Plan Impression/plan: The patient is a 42-year-old man with past history of type 2 diabetes mellitus complicated by diabetic neuropathy, PAD status post left BKA, hypertension, hyperlipidemia, and morbid obesity.? The patient was admitted to the hospital on 12/30/2022 with right lower extremity cellulitis.? Nephrology is following for RADHA. Acute kidney injury on chronic kidney disease stage G3a/A3. The patient likely has diabetic kidney disease at baseline.? He is most recent serum creatinine from September 06, 2022 was 1.77 mg/dL, estimated GFR 48 mL/min. Differential diagnoses for RADHA is broad at this point. RADHA could be ischemic secondary to ATN related to sepsis or nephrotoxic from use of vancomycin. Another possibility would be interstitial nephritis from prior exposure to piperacillin. Lower suspicion for infection related glomerulonephritis since complements levels are actually on the high side. There may also be some contribution of cardiorenal RADHA. I would not be surprised that the patient has pulmonary hypertension given his body habitus. There is no evidence of urinary tract obstruction on renal ultrasound. Because of RADHA, agree with holding STEFANY inhibitor for now. Antimicrobial regimen has been changed by Dr. Tuttle to decrease risk to the kidneys. He was started on furosemide drip yesterday. So far, renal function has stabilized and slightly improved with diuresis which is consistent with a component of cardiorenal RADHA. Since renal function has improved in the last 48 hours, there is no urgent need for kidney replacement therapy. We will continue to monitor renal function, volume status, electrolytes, and acid-base status. Current medications are reviewed and are appropriate dose for his renal function. Hypertension. Current BP is reasonably controlled without STEFANY inhibitor or furosemide. If renal function improves and stabilizes, we can consider adding back RAAS inhibitor and/or SGLT2 inhibitor in the future. Monitor BP on current medications. Acute metabolic acidosis. Serum bicarbonate level was low but stable at 20 mmol/L between 01/01/2023 until 01/04/2023. Acidosis is likely due to RADHA/CKD.? There is no diarrhea. Serum bicarbonate level is better at 23 mmol/L today, likely due to diuresis. We will follow serum bicarbonate level.? There is no need to add sodium bicarbonate supplementation at this point. Anemia. Hemoglobin is low but stable at 7.8 g/dL.? There is no role for VANNESSA from nephrology standpoint in the setting of acute kidney injury. Right lower extremity cellulitis. The patient is currently on ceftriaxone. He is no longer on vancomycin. Okay from my standpoint to continue current antimicrobials. Disposition: He will need to follow-up with us after discharge. We will arrange for office follow-up when the time comes.
[2023-01-05 11:05] LABS: Bedside Glucose 144 mg/dL (74-106)
[2023-01-05] MEDS: Insulin Lispro 100 UNIT/ML INSULN.PEN SC ×3 (11:16→22:39)
[2023-01-05 11:36] LABS: Bedside Glucose 271 mg/dL (74-106)
[2023-01-05 16:26] LABS: Bedside Glucose 267 mg/dL (74-106)
[2023-01-05] MEDS: Insulin Human 75/25 Kwickpen 35 UNIT SC (22:41)
[2023-01-05] MEDS: Furosemide 500 MG in Empty Viaflex 50 mL 1 EACH CONT INF (23:03)
[2023-01-05 23:26] LABS: Bedside Glucose 261 mg/dL (74-106)
[2023-01-06] VITALS (11 sets, daily range): BP systolic 136–179; BP diastolic 60–86; PULSE 76–93; RESP 16–18; TEMP 36.7–37.1; O2SAT 93–97; BMI 53.6
[2023-01-06 05:53] LABS: Absolute Lymphocyte Count 2.01 X10^3/uL (0.83-4.51); Basophil# 0.08 X10^3/uL; Eosinophil# 0.41 X10^3/uL; Eosinophils% 5.1 % (0-5); Hematocrit 26.1 % (40-54); Hemoglobin 8.5 g/dL (13.0-16.5); Lymphocyte # 2.01 X10^3/ul (0.83-4.51); Lymphocyte % 24.8 % (19-41); Mean Corp Hgb Conc 32.6 g/dL (32-36); Mean Corpuscular Hgb 29.2 pg (27.0-32.0); Mean Corpuscular Volume 89.7 fL (80-94); Mean Platelet Vol. 8.5 fl (6.2-12.0); Monocyte# 0.51 X10^3/uL; Monocyte% 6.3 % (0-10); NRBC Flagged by Analyzer 0 % (0-5); Neutrophil # 5.04 X10^3/uL (2.7-7.7); Neutrophil % 62.3 % (47-70); Platelet Count 357 K/mm3 (150-450); RBC Distribution Width CV 12.4 % (11.6-14.6); RBC Distribution Width SD 40.6 fl (35.1-43.9); Red Blood Count 2.91 M/mm3 (4.6-6.2); White Blood Count 8.1 K/mm3 (4.4-11.0)
[2023-01-06] MEDS: hydrALAZINE 20 MG/ML Vial 10 MG IV ×2 (06:23→17:09)
[2023-01-06 06:25] LABS: Anion Gap 9 (5-15); BUN 77 mg/dL (7-18); BUN/Creat Ratio 23.8 RATIO (10-20); Calcium,Total 8.6 mg/dL (8.5-10.1); Chloride 109 mmol/L (98-107); Creatinine, Serum 3.23 mg/dL (0.70-1.30); EST Glomerular Filtration Rate 22 mL/min (>60); Est Glom Filt Rate - Afr Amer 27 mL/min (>60); Estimated Creatinine Clearance 26.61 ml/min; Glucose 186 mg/dL (74-106); Potassium 3.9 mmol/L (3.5-5.1); Sodium Level 142 mmol/L (136-145)
[2023-01-06] MEDS: Insulin Lispro 100 UNIT/ML INSULN.PEN SC ×4 (06:29→21:49)
[2023-01-06 07:26] LABS: Bedside Glucose 174 mg/dL (74-106)
[2023-01-06] MEDS: Juven (unflavored) Packet 1 PACKET PO ×2 (07:40→17:09)
[2023-01-06] MEDS: Acetaminophen 325 MG Tablet 650 MG PO (07:40)
--- NOTE | 2023-01-06 09:07 | PN.HOSP_ITS ---
Reason for Visit Reason for Visit: Diagnoses Essential (primary) hypertension (12/30/22) Cellulitis of right lower limb (12/30/22) Acute kidney failure, unspecified (12/30/22) Chronic kidney disease, stage 3a (12/30/22) Generalized edema (12/30/22) Subjective Subjective No events overnight. Objective Data Objective Data Vital Signs: Vital Signs Temp Pulse Resp BP Pulse Ox O2 Del Method O2 Flow Rate 37.1 C 76 16 172/84 H 96 Room Air 2 01/06/23 04:43 01/06/23 06:23 01/06/23 04:43 01/06/23 06:23 01/06/23 04:43 01/06/23 07:35 01/04/23 08:38 Oxygen Flow Rate (L/min) 2 Oxygen Delivery Method Room Air Weight: 150.8 kg Body Mass Index (BMI) 53.6 Intake & Output: Intake and Output for Last 24 Hours 01/04/23 01/05/23 01/06/23 23:59 23:59 23:59 Intake Total 990 / 990 1482.08 / 1682.08 700 / 700 Output Total 3500 / 3500 3790 / 5640 3550 / 3550 Balance -2510 / -2510 -2307.92 / -3957.92 -2850 / -2850 Lab / Micro Data Result Diagrams: 01/06/23 05:38 01/06/23 05:38 Labs: Laboratory Results - last 24 hr 01/05/23 06:40: POC Glucose 144 H 01/05/23 11:14: POC Glucose 271 H 01/05/23 16:03: POC Glucose 267 H 01/05/23 22:37: POC Glucose 261 H 01/06/23 05:38: WBC 8.1, RBC 2.91 L, Hgb 8.5 L, Hct 26.1 L, MCV 89.7, MCH 29.2, MCHC 32.6, RDW Std Deviation 40.6, RDW Coeff of Mayra 12.4, Plt Count 357, MPV 8.5, Immature Gran % (Auto) 0.500, Neut % (Auto) 62.3, Lymph % (Auto) 24.8, Haakon % (Auto) 6.3, Eos % (Auto) 5.1 H, Baso % (Auto) 1.0, Absolute Neuts (auto) 5.0, Absolute Lymphs (auto) 2.01, Nucleated RBC % 0 01/06/23 05:38: Sodium 142, Potassium 3.9, Chloride 109 H, Carbon Dioxide 24.0, Anion Gap 9, BUN 77 H, Creatinine 3.23 H, Estim Creat Clear Calc 26.61, Est GFR (MDRD) Af Amer 27 L, Est GFR (MDRD) Non-Af 22 L, BUN/Creatinine Ratio 23.8 H, Glucose 186 H, Calcium 8.6 01/06/23 06:28: POC Glucose 174 H Micro: Microbiology 12/31/22 10:15 Wound - Leg, Right Gram Stain - Final 12/31/22 10:15 Wound - Leg, Right Wound Culture - Final Escherichia coli Meth. resistant Staph. aureus Enterococcus faecalis Actinomyces odontolyticus 12/30/22 21:00 Urine, Clean Catch Urine Culture - Final Culture exhibits no growth. 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 Bilateral lower extremities are wrapped. Prosthetic currently off the left lower extremity. Assessment & Plan Assessment/Plan (1) Cellulitis of right lower extremity without foot: PLAN: Right lower extremity cellulitis Patient admitted to a monitored bed started on broad-spectrum antibiotic therapy with clindamycin, vancomycin and Zosyn Surgery following in case I+D required 01/01/2023;seen admit to less pain involving the right lower extremity compared to when he was first admitted. De-escalated patient antibiotic therapy with discontinuation of clindamycin 01/02/2023. Zosyn discontinued replaced with cefepime in view of worsening kidney function Cx growing: E. coli, MRSA, E. faecais, actinomyces. Change abx to CTX and linezolid Continue with antibiotics through the . Can be changed over to oral upon discharge if necessary with levofloxacin and linezolid. (2) RADHA (acute kidney injury): PLAN: Acute kidney injury May be ATN possibly from vancomycin -01/02/2023; Patient did request for resumption of his Lasix in view of inc reasing swelling. 1 dose of 40 mg of IV Lasix given today prior. Patient kidney function however continues to worsen. The combination of Zosyn and vancomycin for his severe cellulitis involving his right lower extremity discontinued. Replaced Zosyn with cefepime. Ordered renal and bladder ultra sound and consultation placed to nephrology Appreciate nephrology input. Creatinine improved (3) Anasarca: PLAN: DW ozzy Buck to start furosemide. He recommended 80mg bolus and gtt at 10mg/h. Still with profound edema. Continue with furosemide drip for now. PLAN: Plan Chronic conditions: * Anemia- Secondary to chronic disorder monitoring H&H and transfuse if patient becomes symptomatic or hemoglobin falls below 7 * Hypertension- Blood pressure controlled, home medications continued with dose adjustment as needed * Diabetes mellitus type II-patient's oral hypoglycemics held. Placed on long acting insulin, Accu-Cheks a.c. and at bedtime and covered with sliding scale insulin. A1c 7.4 * Class III obesity with BMI of 51.6? 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 On heparin Disposition: To be determined. Ideally, I would like to see further improvements of his lymphedema prior to discharge. At this point, we will anticipate the requiring hospitalization for another 48 hours. Charges/Coding Visit Charges Inpatient E&M: 51450 Subs Hosp L2
[2023-01-06] MEDS: Ceftriaxone 1 GM/50 ML BAG IV (09:17)
[2023-01-06] MEDS: hydrALAZINE 25 MG Tablet PO ×3 (09:17→21:48)
[2023-01-06] MEDS: amLODIPine 10 MG Tablet PO (09:18)
[2023-01-06] MEDS: Linezolid 600 MG 600 MG/300 ML BAG 200 MG IV ×2 (09:56→21:59)
--- NOTE | 2023-01-06 10:32 | PN.RENAL_ITS ---
Subjective Subjective Following for RADHA on CKD Patient sitting in chair. Denies any complaints. at bedside. No nausea, vomiting or diarrhea. Reports noting that he is urinating often. Objective Data Objective Data Vital Signs: Vital Signs Temp Pulse Resp BP Pulse Ox O2 Del Method O2 Flow Rate 98.8 F 80 16 160/78 H 93 Room Air 2 01/06/23 04:43 01/06/23 09:17 01/06/23 04:43 01/06/23 09:17 01/06/23 07:50 01/06/23 07:50 01/04/23 08:38 Oxygen Flow Rate (L/min) 2 Oxygen Delivery Method Room Air Weight: 150.8 kg Body Mass Index (BMI) 53.6 Intake & Output: Intake and Output for Last 24 Hours 01/04/23 01/05/23 01/06/23 23:59 23:59 23:59 Intake Total 990 / 990 1482.08 / 1682.08 750 / 750 Output Total 3500 / 3500 3790 / 5640 3550 / 3550 Balance -2510 / -2510 -2307.92 / -3957.92 -2800 / -2800 Lab / Micro Data Result Diagrams: 01/06/23 05:38 01/06/23 05:38 Labs: Laboratory Results - last 24 hr 01/05/23 06:40: POC Glucose 144 H 01/05/23 11:14: POC Glucose 271 H 01/05/23 16:03: POC Glucose 267 H 01/05/23 22:37: POC Glucose 261 H 01/06/23 05:38: WBC 8.1, RBC 2.91 L, Hgb 8.5 L, Hct 26.1 L, MCV 89.7, MCH 29.2, MCHC 32.6, RDW Std Deviation 40.6, RDW Coeff of Mayra 12.4, Plt Count 357, MPV 8.5, Immature Gran % (Auto) 0.500, Neut % (Auto) 62.3, Lymph % (Auto) 24.8, [place] % (Auto) 6.3, Eos % (Auto) 5.1 H, Baso % (Auto) 1.0, Absolute Neuts (auto) 5.0, Absolute Lymphs (auto) 2.01, Nucleated RBC % 0 01/06/23 05:38: Sodium 142, Potassium 3.9, Chloride 109 H, Carbon Dioxide 24.0, Anion Gap 9, BUN 77 H, Creatinine 3.23 H, Estim Creat Clear Calc 26.61, Est GFR (MDRD) Af Amer 27 L, Est GFR (MDRD) Non-Af 22 L, BUN/Creatinine Ratio 23.8 H, Glucose 186 H, Calcium 8.6 01/06/23 06:28: POC Glucose 174 H Micro: Microbiology 12/31/22 10:15 Wound - Leg, Right Gram Stain - Final 12/31/22 10:15 Wound - Leg, Right Wound Culture - Final Escherichia coli Meth. resistant Staph. aureus Enterococcus faecalis Actinomyces odontolyticus 12/30/22 21:00 Urine, Clean Catch Urine Culture - Final Culture exhibits no growth. 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 Lungs: Clear to auscultation Abdomen: Soft, morbidly obese Extremities: 3-4+ right lower extremity edema, leg is wrapped in STEFANY bandage which was not taken down. Pitting edema bilateral thighs. Status post left BKA. Assessment & Plan Assessment/Plan (1) RADHA (acute kidney injury): (2) Chronic kidney disease (CKD) stage G3a/A3, moderately decreased glomerular filtration rate (GFR) between 45-59 mL/min/1.73 square meter and albuminuria creatinine ratio greater than 300 mg/g: (3) HTN (hypertension): (4) Cellulitis of right lower extremity without foot: PLAN: Plan Impression/plan: The patient is a 42-year-old man with past history of type 2 diabetes mellitus complicated by diabetic neuropathy, PAD status post left BKA, hypertension, hyperlipidemia, and morbid obesity.? The patient was admitted to the hospital on 12/30/2022 with right lower extremity cellulitis.? Nephrology is following for RADHA. Acute kidney injury on chronic kidney disease stage G3a/A3. The patient likely has diabetic kidney disease at baseline.? He is most recent serum creatinine from September 06, 2022 was 1.77 mg/dL, estimated GFR 48 mL/min. Patient had normal kidney function (serum creatinine 0.78) in November 2019. RADHA is likely seconary to ATN related to sepsis or nephrotoxic from use of vancomycin. Another possibility would be interstitial nephritis from prior exposure to piperacillin. Lower suspicion for infection related glomerulonephritis since complements levels are actually on the high side (C3 172, C4 45). There may also be some contribution of cardiorenal RADHA. I would not be surprised that the patient has pulmonary hypertension given his body habitus. There is no evidence of urinary tract obstruction on renal ultrasound. Serum creatinine 2.09 mg/dL on admission, increased to 3.92 mg/dL on January 02 and today is 3.23mg/dL. He was started on furosemide drip Tuesday. So far, renal function has stabilized and slightly improved with diuresis which is consistent with a component of cardiorenal RADHA. Per cumulative I&O patient is net -3 L and has already had 3.5 L urine output so far today. Okay to stop IV Lasix infusion and change to intermittent IV Lasix if okay with primary team. No acute/emergent need for BARMAID. We will continue to monitor renal function, volume status, electrolytes, and acid-base status. Current medications are reviewed and are appropriate dose for his renal function. Hypertension. Bps elevated therefore will increase Hydralazine, continue amlodipine and lasix. If renal function improves and stabilizes, we can consider adding back RAAS inhibitor and/or SGLT2 inhibitor in the future. We will discuss this with patient in office Acute metabolic acidosis. Serum bicarbonate level was low but stable at 20 mmol/L between 01/01/2023 until 01/04/2023. Acidosis is likely due to RADHA/CKD.? There is no diarrhea. Serum bicarbonate level is better at 24 mmol/L today, likely due to diuresis. We will follow serum bicarbonate levels.? There is no need to add sodium bi carbonate supplementation at this point. Anemia. Hemoglobin is low but stable at 8.5 g/dL.? There is no role for VANNESSA from nephrology standpoint in the setting of acute kidney injury. Right lower extremity cellulitis. The patient is currently on ceftriaxone and linezolid. He is no longer on vancomycin. Okay to continue current antimicrobials. Disposition: We will arrange for hospital follow-up in our [place] office. 1st number: [phone], 2nd number: [phone]
[2023-01-06 11:35] LABS: Bedside Glucose 264 mg/dL (74-106)
[2023-01-06] MEDS: Nystatin Powder 15gm Bottle 1 APPLIC TOPICAL (13:22)
[2023-01-06 16:45] LABS: Bedside Glucose 238 mg/dL (74-106)
[2023-01-06] MEDS: Insulin Human 75/25 Kwickpen 35 UNIT SC (21:49)
[2023-01-06] MEDS: 0.9% Saline Lock 10 ML Syringe IV ×2 (21:53→22:40)
[2023-01-06 23:35] LABS: Bedside Glucose 295 mg/dL (74-106)
[2023-01-07 03:47] VITALS: BP 144/55; PULSE 76; RESP 18; TEMP 36.7; O2SAT 94
[2023-01-07 06:00] VITALS: BMI 53.8
[2023-01-07 06:38] VITALS: BP 124/59; PULSE 83; RESP 16; TEMP 36.6; O2SAT 95
[2023-01-07 06:42] VITALS: BP 124/59; PULSE 83
[2023-01-07] MEDS: hydrALAZINE 25 MG Tablet PO (06:42)
[2023-01-07 07:11] LABS: Bedside Glucose 142 mg/dL (74-106)
[2023-01-07 07:22] LABS: Anion Gap 10 (5-15); BUN 84 mg/dL (7-18); BUN/Creat Ratio 26.8 RATIO (10-20); Calcium,Total 8.8 mg/dL (8.5-10.1); Chloride 105 mmol/L (98-107); Creatinine, Serum 3.13 mg/dL (0.70-1.30); EST Glomerular Filtration Rate 23 mL/min (>60); Est Glom Filt Rate - Afr Amer 28 mL/min (>60); Estimated Creatinine Clearance 27.46 ml/min; Glucose 146 mg/dL (74-106); Magnesium 2.6 mg/dL (1.6-2.6); Potassium 3.6 mmol/L (3.5-5.1); Sodium Level 141 mmol/L (136-145)
[2023-01-07 08:11] VITALS: O2SAT 92
[2023-01-07] MEDS: Linezolid 600 MG 600 MG/300 ML BAG 200 MG IV (08:25)
[2023-01-07] MEDS: Juven (unflavored) Packet 1 PACKET PO (08:25)
[2023-01-07] MEDS: amLODIPine 10 MG Tablet PO (08:25)
--- NOTE | 2023-01-07 08:48 | PCM.PN.HOSP ---
Reason for Visit Reason for Visit: Diagnoses Essential (primary) hypertension (12/30/22) Cellulitis of right lower limb (12/30/22) Acute kidney failure, unspecified (12/30/22) Chronic kidney disease, stage 3a (12/30/22) Generalized edema (12/30/22) Subjective Subjective Feels well. Still with edema in LE. Objective Data Objective Data Vital Signs: Vital Signs Temp Pulse Resp BP Pulse Ox O2 Del Method O2 Flow Rate 36.6 C 83 16 124/59 H 95 Room Air 2 01/07/23 06:38 01/07/23 06:42 01/07/23 06:38 01/07/23 06:42 01/07/23 06:38 01/07/23 06:38 01/04/23 08:38 Oxygen Flow Rate (L/min) 2 Oxygen Delivery Method Room Air Weight: 151.3 kg Body Mass Index (BMI) 53.8 Intake & Output: Intake and Output for Last 24 Hours 01/05/23 01/06/23 01/07/23 23:59 23:59 23:59 Intake Total 1482.08 / 1682.08 2650 / 2770 320 / 320 Output Total 3790 / 5640 6875 / 7500 1725 / 1725 Balance -2307.92 / -3957.92 -4225 / -4730 -1405 / -1405 Lab / Micro Data Result Diagrams: 01/06/23 05:38 01/07/23 06:10 Labs: Laboratory Results - last 24 hr 01/06/23 10:59: POC Glucose 264 H 01/06/23 16:25: POC Glucose 238 H 01/06/23 21:46: POC Glucose 295 H 01/07/23 06:10: Sodium 141, Potassium 3.6, Chloride 105, Carbon Dioxide 26.0, Anion Gap 10, BUN 84 H, Creatinine 3.13 H, Estim Creat Clear Calc 27.46, Est GFR (MDRD) Af Amer 28 L, Est GFR (MDRD) Non-Af 23 L, BUN/Creatinine Ratio 26.8 H, Glucose 146 H, Calcium 8.8, Magnesium 2.6 01/07/23 06:44: POC Glucose 142 H Micro: Microbiology 12/31/22 10:15 Wound - Leg, Right Gram Stain - Final 12/31/22 10:15 Wound - Leg, Right Wound Culture - Final Escherichia coli Meth. resistant Staph. aureus Enterococcus faecalis Actinomyces odontolyticus 12/30/22 21:00 Urine, Clean Catch Urine Culture - Final Culture exhibits no growth. 12/30/22 20:45 Blood Culture (Wb) - Right Forearm Blood Culture - Final GNR lactose quality assurance engineer 12/30/22 20:40 Blood Culture (Wb) - Left Hand Blood Culture - Final Escherichia coli 01/01/23 10:42 Stool Stool Occult Blood (ARACELI) - Final Rhythm Strip Rhythm Strip: Sinus Tach Rate: 110 Ectopy: None Physical Exam Const alert Constitutional Narrative: up in chair. no respiratory distress. no conversational dyspnea. Extremity General Extremity: edema bilateral Assessment & Plan Assessment/Plan (1) Cellulitis of right lower extremity without foot: PLAN: Right lower extremity cellulitis Patient admitted to a monitored bed started on broad-spectrum antibiotic therapy with clindamycin, vancomycin and Zosyn Surgery following in case I+D required 01/01/2023;seen admit to less pain involving the right lower extremity compared to when he was first admitted. De-escalated patient antibiotic therapy with discontinuation of clindamycin 01/02/2023. Zosyn discontinued replaced with cefepime in view of worsening kidney function Cx growing: E. coli, MRSA, E. faecais, actinomyces. Change abx to CTX and linezolid Continue with antibiotics through the . Can be changed over to oral upon discharge if necessary with levofloxacin and linezolid. (2) RADHA (acute kidney injury): PLAN: Improving May be ATN possibly from vancomycin -01/02/2023; Patient did request for resumption of his Lasix in view of increasing swelling. 1 dose of 40 mg of IV Lasix given today prior. Patient kidney function however continues to worsen. The combination of Zosyn and vancomycin for his severe cellulitis involving his right lower extremity discontinued. Replaced Zosyn with cefepime. Ordered renal and bladder ultrasound and consultation placed to nephrology Appreciate nephrology input. Creatinine improved follow up with nephrology as outpt (3) Anasarca: PLAN: DW ozzy Buck to start furosemide. He recommended 80mg bolus and gtt at 10mg/h. Still with profound edema. change to po furosemide PLAN: Plan Chronic conditions: Anemia- Secondary to chronic disorder monitoring H&H and transfuse if patient becomes symptomatic or hemoglobin falls below 7 Hypertension- Blood pressure controlled, home medications continued with dose adjustment as needed Diabetes mellitus type II-patient's oral hypoglycemics held. Placed on long acting insulin, Accu-Cheks a.c. and at bedtime and covered with sliding scale insulin. A1c 7.4 Class III obesity with BMI of 51.6? 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 On heparin Disposition: To home
[2023-01-07 09:32] VITALS: BP 139/66; PULSE 74; RESP 16; TEMP 36.5; O2SAT 94
--- NOTE | 2023-01-07 10:14 | PCM.PN.REN ---
Subjective Subjective Following for RADHA on CKD Patient is sitting in chair. Family members at bedside. No overnight events. Reports feeling well. No nausea, vomiting or diarrhea. Objective Data Objective Data Vital Signs: Vital Signs Temp Pulse Resp BP Pulse Ox O2 Del Method O2 Flow Rate 97.7 F L 74 16 139/66 H 94 Room Air 2 01/07/23 09:32 01/07/23 09:32 01/07/23 09:32 01/07/23 09:32 01/07/23 09:32 01/07/23 09:32 01/04/23 08:38 Oxygen Flow Rate (L/min) 2 Oxygen Delivery Method Room Air Weight: 151.3 kg Body Mass Index (BMI) 53.8 Intake & Output: Intake and Output for Last 24 Hours 01/05/23 01/06/23 01/07/23 23:59 23:59 23:59 Intake Total 1482.08 / 1682.08 2650 / 2770 320 / 320 Output Total 3790 / 5640 6875 / 7500 1725 / 1725 Balance -2307.92 / -3957.92 -4225 / -4730 -1405 / -1405 Lab / Micro Data Result Diagrams: 01/06/23 05:38 01/07/23 06:10 Labs: Laboratory Results - last 24 hr 01/06/23 10:59: POC Glucose 264 H 01/06/23 16:25: POC Glucose 238 H 01/06/23 21:46: POC Glucose 295 H 01/07/23 06:10: Sodium 141, Potassium 3.6, Chloride 105, Carbon Dioxide 26.0, Anion Gap 10, BUN 84 H, Creatinine 3.13 H, Estim Creat Clear Calc 27.46, Est GFR (MDRD) Af Amer 28 L, Est GFR (MDRD) Non-Af 23 L, BUN/Creatinine Ratio 26.8 H, Glucose 146 H, Calcium 8.8, Magnesium 2.6 01/07/23 06:44: POC Glucose 142 H Micro: Microbiology 12/31/22 10:15 Wound - Leg, Right Gram Stain - Final 12/31/22 10:15 Wound - Leg, Right Wound Culture - Final Escherichia coli Meth. resistant Staph. aureus Enterococcus faecalis Actinomyces odontolyticus 12/30/22 21:00 Urine, Clean Catch Urine Culture - Final Culture exhibits no growth. 12/30/22 20:45 Blood Culture (Wb) - Right Forearm Blood Culture - Final GNR lactose director emergency services 12/30/22 20:40 Blood Culture (Wb) - Left Hand Blood Culture - Final Escherichia coli 01/01/23 10:42 Stool Stool Occult Blood (ARACELI) - Final Rhythm Strip Rhythm Strip: Sinus Tach Rate: 110 Ectopy: None Physical Exam Narrative General: Awake, alert, oriented x 3 and cooperative Heart: Normal S1, S2, no murmur, no gallop Lungs: Clear to auscultation Abdomen: Soft, morbidly obese Extremities: 3-4+ right lower extremity edema, leg is wrapped in STEFANY bandage which was not taken down. Pitting edema bilateral thighs. Status post left BKA. Assessment & Plan Assessment/Plan (1) RAHDA (acute kidney injury): (2) Chronic kidney disease (CKD) stage G3a/A3, moderately decreased glomerular filtration rate (GFR) between 45-59 mL/min/1.73 square meter and albuminuria creatinine ratio greater than 300 mg/g: (3) HTN (hypertension): (4) Cellulitis of right lower extremity without foot: PLAN: Plan Impression/plan: The patient is a 42-year-old man with past history of type 2 diabetes mellitus complicated by diabetic neuropathy, PAD status post left BKA, hypertension, hyperlipidemia, and morbid obesity.? The patient was admitted to the hospital on 12/30/2022 with right lower extremity cellulitis.? Nephrology is following for RADHA. Acute kidney injury on chronic kidney disease stage G3a/A3. The patient likely has diabetic kidney disease at baseline.? He is most recent serum creatinine from September 06, 2022 was 1.77 mg/dL, estimated GFR 48 mL/min. Patient had normal kidney function (serum creatinine 0.78) in November 2019. RADHA is likely seconary to ATN related to sepsis or nephrotoxic from use of vancomycin. Another possibility would be interstitial nephritis from prior exposure to piperacillin. Lower suspicion for infection related glomerulonephritis since complements levels are actually on the high side (C3 172, C4 45). There may also be some contribution of cardiorenal RADHA. I would not be surprised that the patient has pulmonary hypertension given his body habitus. There is no evidence of urinary tract obstruction on renal ultrasound. Serum creatinine 2.09 mg/dL on admission, increased to 3.92 mg/dL on January 02 and today is 3.13mg/dL. Patient was started on furosemide drip Tuesday. So far, renal function has stabilized and slightly improved with diuresis which is consistent with a component of cardiorenal RADHA. No recent echo. Per cumulative I&O patient is net -5.8 L. Okay to stop IV Lasix infusion and change to intermittent IV Lasix if okay with primary team. For discharge plans, he can be discharged on Lasix 40 mg twice daily. I reviewed with patient and again today importance of low-sodium diet and maintaining appropriate fluid intake of 1.5L to no more than 2 L total fluids per day. No acute/emergent need for CULTURE ROOM WORKER. We will continue to monitor renal function, volume status, electrolytes, and acid-base status. Current medications are reviewed and are appropriate dose for his renal function. Hypertension. Blood pressures improved, continue hydralazine TID, continue amlodipine and lasix. If renal function improves and stabilizes, we can consider adding back RAAS inhibitor and/or SGLT2 inhibitor in the future. We will discuss this with patient in office Acute metabolic acidosis. Serum bicarbonate now normal. Serum bicarbonate level was low but stable at 20 mmol/L between 01/01/2023 until 01/04/2023. Acidosis is likely due to RADHA/CKD.? There is no diarrhea. Anemia. Hemoglobin is low but stable at 8.5 g/dL.? There is no role for VANNESSA from nephrology standpoint in the setting of acute kidney injury. Right lower extremity cellulitis. The patient is currently on ceftriaxone and linezolid. He is no longer on vancomycin. Okay to continue current antimicrobials. Disposition: We will arrange for hospital follow-up in our [place] office. 1st number: [phone], 2nd number: [phone]
[2023-01-07] MEDS: Ceftriaxone 1 GM/50 ML BAG IV (10:31)
[2023-01-07 11:06] VITALS: BP 128/64; PULSE 77; RESP 16; TEMP 36.3; O2SAT 98
[2023-01-07] MEDS: Insulin Lispro 100 UNIT/ML INSULN.PEN SC (11:15)
--- NOTE | 2023-01-07 11:18 | DCINST_ITS ---
Discharge Instructions Diet Discharge Diet: 2000 Calorie Control Diet and - (1.5 liters (50 oz) of fluid per day) Dressing / Incision Call your doctor if your incision/area has: Continuous Slow Oozing, Sudden Increased Bleeding, Increased Pain/ Swelling, Increased Redness and Foul Smelling Discharge Call your doctor if you observe: Swelling in the ankles Follow Up Care Test Results: Test results from this visit will be discussed in further detail at your follow- up appointment, if applicable. Discharge Plan Admission Admit Date/Time: 12/30/22 22:41 Primary Reason for Your Visit: leg cellulitis. acute kidney injury. Attending Provider: Adalberto Tuttle Primary Care Provider: Diego Ghotra Consulting Providers: Marline Wilhelm ; Kyle Steen ; Tameka Plata ; Lianna Roy Instructions Additional Instructions / Restrictions: Daily weights and keep a record of weights. Wraps legs daily. Discharge Orders/Prescriptions Prescriptions: New hydralazine 25 mg Tablet 50 mg PO TID 30 Days Qty: 180 0RF furosemide 20 mg tablet 60 mg PO BID 30 Days Qty: 180 0RF potassium chloride 20 mEq packet 20 meq PO DAILY Qty: 30 0RF linezolid 600 mg tablet 600 mg PO Q12H Qty: 4 0RF levofloxacin 500 mg tablet 500 mg PO DAILY Qty: 2 0RF Continued cholecalciferol (vitamin D3) 2,000 UNIT capsule 2,000 unit PO BID Magnesium 2 tab PO BID Novolin 70/30 30 - 35 units SQ QHS Rx Instructions: PER PATIENT'S ONLY SLIDING SCALE Pantothenic Acid 1 tab PO BID Discontinued lisinopril 5 MG tablet 20 mg PO DAILY Potassium 2 tab PO DAILY furosemide 40 mg Tablet 40 mg PO DAILY hydralazine 25 mg Tablet 25 mg PO BID amlodipine 10 mg Tablet 10 mg PO DAILY Referrals / Follow Up: [facility] [Provider Group] - Within 1 Month Diego Ghotra DO [Primary Care Provider] - Within 2 Weeks Disposition Disposition (needs filled in before D/C Order can be placed): Home, Self Care
--- NOTE | 2023-01-07 11:34 | DS.PCM_ITS ---
Providers Date of Admission: 12/30/22 Primary Care Physician: Dr. Diego Ghotra, Consultations 12/31/22 01:51 Consult: General Surgery Routine Consulting Provider: Tameka Plata Reason for Consult: RLE cellulitis, CT imaging notable, cannot rule out nec fasc. EMERGENT Consult: No Notified: Yes Date Notified: 12/31/22 Time Notified: 01:51 Method of Notification: backline with response 01/02/23 08:06 Consult: Nephrology Routine Consulting Provider: Lianna Roy Reason for Consult: renal failure EMERGENT Consult: No Notified: Yes Date Notified: 01/02/23 Time Notified: 08:18 Method of Notification: Answering Service Reason For Visit: RLE CELLULITIS Diagnosis Discharge Diagnosis (1) Cellulitis of right lower extremity without foot: Status: Acute Code(s): L03.115 - Cellulitis of right lower limb Plan: Right lower extremity cellulitis Patient admitted to a monitored bed started on broad-spectrum antibiotic therapy with clindamycin, vancomycin and Zosyn Surgery following in case I+D required 01/01/2023;seen admit to less pain involving the right lower extremity compared to when he was first admitted. De-escalated patient antibiotic therapy with discontinuation of clindamycin 01/02/2023. Zosyn discontinued replaced with cefepime in view of worsening kidney function Cx growing: E. coli, MRSA, E. faecais, actinomyces. Change abx to CTX and linezolid Continue with antibiotics through the . Can be changed over to oral upon discharge if necessary with levofloxacin and linezolid. (2) RADHA (acute kidney injury): Status: Acute Code(s): N17.9 - Acute kidney failure, unspecified Plan: Improving May be ATN possibly from vancomycin -01/02/2023; Patient did request for resumption of his Lasix in view of increasing swelling. 1 dose of 40 mg of IV Lasix given today prior. Patient kidney function however continues to worsen. The combination of Zosyn and vancomycin for his severe cellulitis involving his right lower extremity discontinued. Replaced Zosyn with cefepime. Ordered renal and bladder ultrasound and consultation placed to nephrology Appreciate nephrology input. Creatinine improved follow up with nephrology as outpt (3) Anasarca: Status: Acute Code(s): R60.1 - Generalized edema Plan: DW ozzy Buck to start furosemide. He recommended 80mg bolus and gtt at 10mg/h. Still with profound edema. change to po furosemide Plan Chronic conditions: * Anemia- Secondary to chronic disorder monitoring H&H and transfuse if patient becomes symptomatic or hemoglobin falls below 7 * Hypertension- Blood pressure controlled, home medications continued with dose adjustment as needed * Diabetes mellitus type II-patient's oral hypoglycemics held. Placed on long acting insulin, Accu-Cheks a.c. and at bedtime and covered with sliding scale insulin. A1c 7.4 * Class III obesity with BMI of 51.6? 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 On heparin Disposition: To home Medications at Discharge Home Medications Magnesium 2 tab PO BID supplement 12/10/19 Novolin 70/30 30 - 35 units SQ QHS diabetes 12/10/19 Pantothenic Acid 1 tab PO BID supplement 12/10/19 cholecalciferol (vitamin D3) 50 mcg (2,000 unit) capsule 2,000 unit PO BID supplement 12/10/19 furosemide 20 mg tablet 60 mg PO BID 30 days #180 tabs 01/07/23 hydralazine 25 mg tablet 50 mg PO TID 30 days #180 tabs 01/07/23 levofloxacin 500 mg tablet 500 mg PO DAILY #2 tabs 01/07/23 linezolid 600 mg tablet 600 mg PO Q12H #4 tabs 01/07/23 potassium chloride 20 mEq oral packet 20 meq PO DAILY #30 ea 01/07/23 Hospital Course Operations None Procedures None Summary of Care Provided Minutes Spent on Discharge: 32 Hospital Course: 42-year-old male presents with right leg cellulitis. Patient was started on broad-spectrum antibiotics with vancomycin and Pipracil/tazobactam. Subsequently, the patient developed acute kidney injury and patient was monitored. Nephrology was consulted but patient did not require any renal replacement therapy. Patient was resumed on furosemide but started on a furosemide drip and did diurese well with that. Creatinine continues to improve. Patient will continue with the furosemide upon discharge. Patient was taking furosemide 40 mg daily at home, that will be increased to 60 mg twice daily with additional potassium replacement. Patient aware that he will need to follow his primary care doctor, follow-up with nephrology as well as his primary care doctor now follow-up labs. Patient still has very marked edema in his lower extremities but is otherwise stable and continue with diuresis as outpat ient. Patient advised to check his weight daily. For the lower extremity wounds, is felt that the vancomycin the patient was receiving may have initiated ATN that causes acute kidney injury. Patient was subsequent changed over to linezolid which seemed to be better tolerated. Cultures from the wounds grew out E. coli, MRSA and Enterococcus faecalis and actinomyces. Patient will be discharged with linezolid and levofloxacin, renally dosed, to be completed on the . Weight / BMI Weight Weight: 151.3 kg Body Mass Index (BMI) 53.8 ABG / Lab / Microbiology Data Result Diagrams: 01/06/23 05:38 01/07/23 06:10 Laboratory: Laboratory Results - last 24 hr 01/06/23 10:59: POC Glucose 264 H 01/06/23 16:25: POC Glucose 238 H 01/06/23 21:46: POC Glucose 295 H 01/07/23 06:10: Sodium 141, Potassium 3.6, Chloride 105, Carbon Dioxide 26.0, Anion Gap 10, BUN 84 H, Creatinine 3.13 H, Estim Creat Clear Calc 27.46, Est GFR (MDRD) Af Amer 28 L, Est GFR (MDRD) Non-Af 23 L, BUN/Creatinine Ratio 26.8 H, Glucose 146 H, Calcium 8.8, Magnesium 2.6 01/07/23 06:44: POC Glucose 142 H Microbiology: Microbiology 12/31/22 10:15 Wound - Leg, Right Gram Stain - Final 12/31/22 10:15 Wound - Leg, Right Wound Culture - Final Escherichia coli Meth. resistant Staph. aureus Enterococcus faecalis Actinomyces odontolyticus 12/30/22 21:00 Urine, Clean Catch Urine Culture - Final Culture exhibits no growth. 12/30/22 20:45 Blood Culture (Wb) - Right Forearm Blood Culture - Final GNR lactose pourer metal 12/30/22 20:40 Blood Culture (Wb) - Left Hand Blood Culture - Final Escherichia coli 01/01/23 10:42 Stool Stool Occult Blood (ARACELI) - Final D/C Instructions Discharge Diet: 2000 Calorie Control Diet and - (1.5 liters (50 oz) of fluid per day) Call your doctor if your incision/area has: Continuous Slow Oozing, Sudden I ncreased Bleeding, Increased Pain/ Swelling, Increased Redness and Foul Smelling Discharge Call your doctor if you observe: Swelling in the ankles Meaningful Use Info Meaningful Use Diagnoses (Choose all that apply): None applicable Discharge Plan Admission Admit Date/Time: 12/30/22 22:41 Primary Reason for Your Visit: leg cellulitis. acute kidney injury. Attending Provider: Adalberto Tuttle Primary Care Provider: Diego Ghotra Consulting Providers: Marline Wilhelm ; Kyle Steen ; Tameka Plata ; Lianna Roy Instructions Additional Instructions / Restrictions: Daily weights and keep a record of weights. Wraps legs daily. Discharge Orders/Prescriptions Prescriptions: New hydralazine 25 mg Tablet 50 mg PO TID 30 Days Qty: 180 0RF furosemide 20 mg tablet 60 mg PO BID 30 Days Qty: 180 0RF potassium chloride 20 mEq packet 20 meq PO DAILY Qty: 30 0RF linezolid 600 mg tablet 600 mg PO Q12H Qty: 4 0RF levofloxacin 500 mg tablet 500 mg PO DAILY Qty: 2 0RF Continued cholecalciferol (vitamin D3) 2,000 UNIT capsule 2,000 unit PO BID Magnesium 2 tab PO BID Novolin 70/30 30 - 35 units SQ QHS Rx Instructions: PER PATIENT'S ONLY SLIDING SCALE Pantothenic Acid 1 tab PO BID Discontinued lisinopril 5 MG tablet 20 mg PO DAILY Potassium 2 tab PO DAILY furosemide 40 mg Tablet 40 mg PO DAILY hydralazine 25 mg Tablet 25 mg PO BID amlodipine 10 mg Tablet 10 mg PO DAILY Referrals / Follow Up: [facility] [Provider Group] - Within 1 Month Diego Ghotra DO [Primary Care Provider] - Within 2 Weeks Disposition Disposition (needs filled in before D/C Order can be placed): Home, Self Care Charges/Coding Visit Charges Inpatient E&M: 50294 Disch Hosp >30min
[2023-01-07 11:40] LABS: Bedside Glucose 231 mg/dL (74-106)
--- NOTE | 2023-01-07 11:54 | CASEMGMT ---
RN JOSEPH notified that patient has order for discharge. Patient denies needs at discharge. Patient states he would like to utilize [facility] for transport home. Patient states he has number for [facility], RN JOSEPH encouraged patient to call to arrange time. Patient voiced understanding and denied further questions or concerns at this time.
--- NOTE | 2023-01-07 14:32 | PHA.DC.MR ---
Pharmacy Service has performed discharge medication reconciliation for this patient. The patient's discharge medication list was reviewed for discrepancies and discrepancies were resolved. Medication education papers prepared but patient was discharged before I was able to scholarship counselor. Home Medications Magnesium 2 tab PO BID supplement 12/10/19 Novolin 70/30 30 - 35 units SQ QHS diabetes 12/10/19 Pantothenic Acid 1 tab PO BID supplement 12/10/19 cholecalciferol (vitamin D3) 50 mcg (2,000 unit) capsule 2,000 unit PO BID supplement 12/10/19 furosemide 20 mg tablet 60 mg PO BID 30 days #180 tabs 01/07/23 hydralazine 25 mg tablet 50 mg PO TID 30 days #180 tabs 01/07/23 levofloxacin 500 mg tablet 500 mg PO DAILY #2 tabs 01/07/23 linezolid 600 mg tablet 600 mg PO Q12H #4 tabs 01/07/23 potassium chloride 20 mEq oral packet 20 meq PO DAILY #30 ea 01/07/23
== END 2023-01-07 14:10 | disposition home or self-care (01) | DRG 602 ==
LOC: ED 21:50 → PCU 12-31 00:19
PROVIDERS: Internal Medicine; Internal Medicine Nephrology; Nurse Practitioner Adult Health; Admitting Provider Family Medicine; Emergency Provider Emergency Medicine; PCP Family Medicine
DX: L03.115 Cellulitis of right lower limb (principal); N17.0 Acute kidney failure with tubular necrosis; R78.81 Bacteremia; L97.919 Non-pressure chronic ulcer of unspecified part of right lower leg with unspecified severity; Z68.43 Body mass index [BMI] 50.0-59.9, adult; E11.610 Type 2 diabetes mellitus with diabetic neuropathic arthropathy; E11.22 Type 2 diabetes mellitus with diabetic chronic kidney disease; B96.20 Unspecified Escherichia coli [E. coli] as the cause of diseases classified elsewhere; E11.622 Type 2 diabetes mellitus with other skin ulcer; E11.40 Type 2 diabetes mellitus with diabetic neuropathy, unspecified; E11.65 Type 2 diabetes mellitus with hyperglycemia; Z79.4 Long term (current) use of insulin; N18.30 Chronic kidney disease, stage 3 unspecified; E66.01 Morbid (severe) obesity due to excess calories; N18.31 Chronic kidney disease, stage 3a; E11.51 Type 2 diabetes mellitus with diabetic peripheral angiopathy without gangrene; Z89.512 Acquired absence of left leg below knee; E78.5 Hyperlipidemia, unspecified; I12.9 Hypertensive chronic kidney disease with stage 1 through stage 4 chronic kidney disease, or unspecified chronic kidney disease; R60.1 Generalized edema; T36.8X5A Adverse effect of other systemic antibiotics, initial encounter; Z66 Do not resuscitate; Z79.899 Other long term (current) drug therapy; Z87.891 Personal history of nicotine dependence
CPT/HCPCS: 36415; 73552; 73590; 73700; 76770; 80048; 80053; 80069; 80076; 80202; 81001; 82274; 82550; 82570; 82607; 82728; 82746; 82962; 83036; 83540; 83550; 83605; 83735; 84156; 84300; 85025; 85610; 85730; 86160; 87040; 87070; 87077; 87086; 87186; 87205; 87640; 93005; 93971; 94640; 94668; 97802; 97803; 99285; J2020; J7030; J7040; A4216; J1940; J2405

== ENCOUNTER 2023-03-11 12:32 | Observation (INO) | payer OTHER, SELFPAY ==
[2023-03-11] VITALS (10 sets, daily range): BP systolic 120–174; BP diastolic 63–85; PULSE 89–115; RESP 14–22; TEMP 36.8–37; O2SAT 94–97; BMI 56.7; BMI 49.8
--- NOTE | 2023-03-11 13:10 | CT_ITS ---
STUDY: CT BRAIN WITHOUT CONTRAST REASON FOR EXAM: Male, 42 years old. Generalized weakness. Syncopal episode. RADIATION DOSAGE (If Supplied By Facility): CTDIvol = ( 44.99 ) mGy, DLP = ( 798.92 ) mGycm TECHNIQUE: Transaxial CT imaging of the brain was performed without administration of intravenous contrast material. Individualized dose optimization techniques were used for this CT. COMPARISON: No relevant priors. FINDINGS: Normal soft tissue structures. Normal calvarium. Normal size ventricles and extra-axial spaces for the patient''s age. Normal white matter tracts of the cerebral hemispheres. Normal basal ganglia and thalami. Normal brainstem. Normal cerebellum. There is no intracranial hemorrhage. There are no findings of an acute ischemic infarction. Normal visualized paranasal sinuses. CT/Brain/Head without Contrast IMPRESSION: Normal unenhanced CT scan of the brain. Electronically Signed: Jules Jacobson MD at 14:07 EDT ,
--- NOTE | 2023-03-11 13:15 | EKG12_ITS ---
Test Reason : WEAKNESS Blood Pressure : / mmHG Vent. Rate : 110 BPM Atrial Rate : 110 BPM P-R Int : 162 ms QRS Dur : 080 ms QT Int : 310 ms P-R-T Axes : 044 -14 035 degrees QTc Int : 419 ms Sinus tachycardia Minimal voltage criteria for LVH, may be normal variant ( R in aVL ) Borderline ECG Confirmed by JARAD CONNOLLY, JOCELYN ([id number]), news editor RAFAEL GARLAND ([id number]) on 03/14/2023 11:10:34 AM Referred By: Confirmed By:JOCELYN ABRAHAM MD
[2023-03-11] MEDS: 0.9% Normal Saline 1,000 ML 1000 ML IV (13:24)
[2023-03-11] MEDS: Ondansetron 4 MG/2 ML Vial IV ×2 (13:24→22:52)
[2023-03-11 13:39] LABS: Absolute Lymphocyte Count 0.45 X10^3/uL (0.83-4.51); Absolute Neutrophil Count 5.3 X10^3/uL (2.0-7.7); Basophil# 0.01 X10^3/uL; Basophil% 0.2 % (0-1); Eosinophil# 0.11 X10^3/uL; Eosinophils% 1.8 % (0-5); Hematocrit 31.4 % (40-54); Hemoglobin 10.1 g/dL (13.0-16.5); Lymphocyte # 0.45 X10^3/ul (0.83-4.51); Lymphocyte % 7.3 % (19-41); Mean Corp Hgb Conc 32.2 g/dL (32-36); Mean Corpuscular Hgb 28.7 pg (27.0-32.0); Mean Corpuscular Volume 89.2 fL (80-94); Mean Platelet Vol. 8.9 fl (6.2-12.0); Monocyte# 0.26 X10^3/uL; Monocyte% 4.2 % (0-10); NRBC Flagged by Analyzer 0 % (0-5); Neutrophil # 5.33 X10^3/uL (2.7-7.7); Neutrophil % 86.2 % (47-70); POSITIVE DIFFERENTIAL YES; Platelet Count 254 K/mm3 (150-450); RBC Distribution Width CV 12.9 % (11.6-14.6); RBC Distribution Width SD 42.1 fl (35.1-43.9); Red Blood Count 3.52 M/mm3 (4.6-6.2); White Blood Count 6.2 K/mm3 (4.4-11.0)
[2023-03-11 13:42] LABS: Differential Indicated SCAN CRITERIA MET
--- NOTE | 2023-03-11 13:55 | RAD_ITS ---
STUDY: X-RAY CHEST REASON FOR EXAM: Male, 42 years old. Syncope TECHNIQUE: AP and lateral views of the chest. COMPARISON: Comparison is made with prior study dated 12/10/2019. FINDINGS: EKG electrodes are seen. The lungs are clear and expanded. There is no demonstrated pleural abnormality. Normal size heart. Normal mediastinum and carlos. Normal visualized pulmonary arteries. Normal visualized aortic arch and descending thoracic aorta. Normal visualized thoracic spine. Normal visualized ribs, clavicles, and shoulders. There is no demonstrated abnormality of the visualized soft tissue structures of the upper abdomen. RAD/Chest PA and Lateral IMPRESSION: Normal x-ray examination of the chest. Electronically Signed: Jules Jacobson MD at 14:08 EDT ,
[2023-03-11 14:02] LABS: ALB/GLOB Ratio 0.6 RATIO (0.9-2.4); AST(SGOT) 18 U/L (15-37); Alanine Aminotransfer ALT/SGPT 25 U/L (16-61); Albumin, Serum 2.3 g/dL (3.2-5.0); Alkaline Phosphatase 62 U/L (45-117); Anion Gap 6 (5-15); BUN 67 mg/dL (7-18); BUN/Creat Ratio 31.5 RATIO (10-20); Calcium,Total 8.3 mg/dL (8.5-10.1); Chloride 111 mmol/L (98-107); Creatinine, Serum 2.13 mg/dL (0.70-1.30); EST Glomerular Filtration Rate 36 mL/min (>60); Est Glom Filt Rate - Afr Amer 44 mL/min (>60); Estimated Creatinine Clearance 33.08 ml/min; Globulin 3.7 g/dL (2.2-4.2); Glucose 236 mg/dL (74-106); Lipase 58 U/L (13-75); Sodium Level 138 mmol/L (136-145); Troponin-I HS (w/2H Reflex) 9 pg/mL (3.0-78.0)
[2023-03-11 14:21] LABS: Lactic Acid 0.2 mmol/L (0.4-1.9)
--- NOTE | 2023-03-11 14:22 | CT_ITS ---
INDICATION: Vomiting and upper abdominal pain. EXAMINATION: CT ABDOMEN AND PELVIS WITHOUT CONTRAST TECHNIQUE: Helically acquired images were obtained of the abdomen and pelvis without oral or IV contrast. A radiation dose optimization technique was used for this scan. IV Contrast dosage and agent: None. Oral contrast: None. COMPARISON: Renal and bladder ultrasound January 02, 2023. FINDINGS: LOWER CHEST: Lung bases are clear. No cardiomegaly or pericardial effusion. No significant coronary artery calcification. LIVER: Homogeneous. No focal mass. GALLBLADDER AND BILIARY TREE: No calcified gallstones. No gallbladder distension or wall edema. No intra- or extrahepatic biliary ductal dilation. PANCREAS: No focal cystic or solid mass. SPLEEN: Normal size without focal cystic or solid mass. ADRENAL GLANDS: No nodules. KIDNEYS AND URETERS: Normal renal size and position. No hydronephrosis. No nephrolithiasis. No ureteral stone. PERITONEUM: No ascites or free air. No abnormal localized fluid collection. BOWEL: No evidence of acute appendicitis, normal appendix. No stomach or bowel distension. No focal inflammatory changes. LYMPH NODES: No enlarged mesenteric or retroperitoneal lymph nodes. Several subcentimeter retroperitoneal lymph nodes. Benign appearing inguinal lymph nodes. VESSELS: Aorta is non-dilated. Early atherosclerotic calcification at the aortic bifurcation and proximal common iliac arteries. URINARY BLADDER: Incompletely distended but unremarkable. No gas or stone. REPRODUCTIVE ORGANS: No pelvic masses. ABDOMINAL WALL: Small fat-containing umbilical hernia. Mild skin thickening and subcutaneous edema within the infraumbilical anterior abdominal wall soft tissues associated with pannus formation. Small anasarca at the bilateral flank and hip soft tissues. BONES: No lytic or blastic abnormality. Schmorl''s node endplate changes in the thoracic and lumbar spine. There is no acute lumbar spine or pelvic osseous injury. CT/Abdomen/Pelvis without Cont IMPRESSION: No appendicitis or acute intra-abdominal findings. Electronically Signed: Ruddy Montez MD at 16:18 EDT ,
[2023-03-11 15:37] LABS: Reflex Troponin-HS? (from REC) Y
--- NOTE | 2023-03-11 15:57 | EX.ED.DYSGE1 ---
HPI History of Present Illness Chief Complaint: Weakness Informant: patient Narrative Narrative: Patient is a 42-year-old male with history of insulin-dependent diabetes mellitus, CKD 3, hypertension, hyperlipidemia, diabetic neuropathy and BKA of the left lower extremity with hospitalization for cellulitis of the right lower extremity and RADHA 2 months ago presenting for generalized weakness, an episode of syncope and vomiting. Patient states he felt well when he woke up today. He went to work and started to have discomfort in his abdomen. States he went outside to throw up and then felt lightheaded. He fell backwards and hit his head on the door jam. He states he woke up on the ground with people yelling at him however he is vague about the events and I am not sure if he truly passed out or had a near syncopal episode. Patient now only states that his stomach hurts because he is hungry. He notes he only had a snack and a Pepsi today. He did feel like his blood sugar was low earlier but had the Pepsi with a snack which helped. Patient Nuys any history of any abdominal surgeries. States his cellulitis has resolved. Denies associated chest pain or shortness of breath. States he generally just feels weak right now and feels like he needs to take a nap. Has no other complaints at this time. [facility] Medical History Below-knee amputation of left lower extremity Charcot's joint Chronic anemia Chronic kidney disease (CKD) stage G3a/A3, moderately decreased glomerular filtration rate (GFR) between 45-59 mL/min/1.73 square meter and albuminuria creatinine ratio greater than 300 mg/g CKD (chronic kidney disease), stage III Diabetes mellitus type 2 in obese Diabetic neuropathy History of osteomyelitis HLD (hyperlipidemia) HTN (hypertension) Hyperglycemia due to type 2 diabetes mellitus Morbid obesity Home Medications Magnesium 2 tab PO BID supplement 12/10/19 [History Last Taken Unknown] Novolin 70/30 30 - 35 units SQ QHS diabetes 12/10/19 [History Last Taken Unknown] Pantothenic Acid 1 tab PO BID supplement 12/10/19 [History Last Taken Unknown] cholecalciferol (vitamin D3) 50 mcg (2,000 unit) capsule 2,000 unit PO BID supplement 12/10/19 [History Last Taken Unknown] furosemide 20 mg tablet 60 mg PO BID 30 days #180 tabs 01/07/23 [Rx Last Taken Unknown] hydralazine 25 mg tablet 50 mg PO TID 30 days #180 tabs 01/07/23 [Rx Last Taken Unknown] potassium chloride 20 mEq oral packet 20 meq PO DAILY #30 ea 01/07/23 [Rx Last Taken Unknown] Allergy/AdvReac Type Severity Reaction Status Date / Time metformin AdvReac Abd Verified 03/11/23 12:32 cramps/diarrhea Surgical History History of surgery on lower extremity Status post left foot surgery Social History household members: spouse Smoking Status: Former smoker how long ago did patient quit smoking: Quit ~ 15 years prior to current presentation. alcohol intake: never substance use type: does not use ROS ROS ED Constitutional Constitutional ED: Denies chills, fever(s) or subjective Eyes Eyes: Denies blurry vision or change in vision ENT ENT ED: Denies sore throat Cardiovascular Cardiovascular: Denies chest pain Musculoskeletal Musculoskeletal: Reports other Details: left BKA ; Denies arthralgias or myalgias Integumentary Denies rash Neurologic Neurologic: Reports weakness; Denies headache(s) Psychiatric Psychiatric: Denies anxiety Hematologic/Lymphatic Hematologic/Lymphatic: Denies easy bleeding or easy bruising EXAM Physical Exam Const Vital Signs: 03/11/23 12:33 03/11/23 12:49 03/11/23 15:03 Temperature 98.4 F Temperature Source Oral Pulse Rate 105 H 110 H Pulse Rate [Lying] Pulse Rate [Sitting (for 1 minute prior to obtaining)] Pulse Rate [Standing (for 1 minute prior to obtaining)] Respiratory Rate 16 18 Respiratory Effort Normal Non-Labored Respiratory Pattern Normal Blood Pressure 174/85 H 154/74 H Blood Pressure [Lying] Blood Pressure [Sitting (for 1 minute prior to obtaining)] Blood Pressure [Standing (for 1 minute prior to obtaining)] Blood Pressure Mean 114 100 Blood Pressure Mean [Lying] Blood Pressure Mean [Sitting (for 1 minute prior to obtaining)] Blood Pressure Mean [Standing (for 1 minute prior to obtaining)] Pulse Ox 96 95 Oxygen Delivery Method Room Air Room Air 03/11/23 15:40 03/11/23 16:11 03/11/23 17:13 Temperature 98.6 F Temperature Source Oral Pulse Rate 111 H 109 H Pulse Rate [Lying] 111 H Pulse Rate [Sitting (for 1 minute prior to obtaining)] 112 H Pulse Rate [Standing (for 1 minute prior to obtaining)] 115 H Respiratory Rate 14 17 Respiratory Effort Respiratory Pattern Blood Pressure 151/70 H 136/76 H Blood Pressure [Lying] 156/69 H Blood Pressure [Sitting (for 1 minute prior to obtaining)] 124/72 H Blood Pressure [Standing (for 1 minute prior to obtaining)] 120/72 Blood Pressure Mean 97 96 Blood Pressure Mean [Lying] 98 Blood Pressure Mean [Sitting (for 1 minute prior to obtaining)] 89 Blood Pressure Mean [Standing (for 1 minute prior to obtaining)] 88 Pulse Ox 95 94 Oxygen Delivery Method Room Air Room Air 03/11/23 18:13 03/11/23 18:42 03/11/23 19:52 Temperature Temperature Source Pulse Rate 104 H 97 Pulse Rate [Lying] 94 Pulse Rate [Sitting (for 1 minute prior to obtaining)] 93 Pulse Rate [Standing (for 1 minute prior to obtaining)] 89 Respiratory Rate 22 H 20 H Respiratory Effort Respiratory Pattern Blood Pressure 144/78 H 153/64 H Blood Pressure [Lying] 124/63 H Blood Pressure [Sitting (for 1 minute prior to obtaining)] 145/72 H Blood Pressure [Standing (for 1 minute prior to obtaining)] 159/63 H Blood Pressure Mean 100 93 Blood Pressure Mean [Lying] 83 Blood Pressure Mean [Sitting (for 1 minute prior to obtaining)] 96 Blood Pressure Mean [Standing (for 1 minute prior to obtaining)] 95 Pulse Ox 94 95 Oxygen Delivery Method Room Air Room Air Positive well nourished, well developed and obese General Appearance ED: well developed and NAD Nutritional Appearance: obese HEENT Reports dry mucous membranes Mouth ED: Yes dry mucous membranes Mouth: dry mucous membranes Eyes PERRL and EOMs intact bilaterally Neck supple and no JVD Chest Wall inspection of chest normal and palpation of chest normal Resp normal respiratory effort and clear to auscultation bilaterally Cardio regular rate, regular rhythm and no murmurs GI normal to inspection, nondistended, normoactive bowel sounds and non-tender Palpation: soft Extremity Extremity Narrative: Left BKA Neuro oriented x3 Neuro Narrative: Slightly somnolent but answers questions appropriately Sensorium / Orientation: alert Motor Exam: general weakness Psych mental status grossly normal Skin no rashes or lesions noted and no wounds MDM MDM MDM Narrative Medical decision making narrative: Patient is evaluated for generalized weakness, an episode of vomiting and then questionable syncopal episode. Patient has multiple comorbidities including diabetes mellitus, hypertension and prior left BKA. He denies any history of any abdominal surgeries. He is complaining of mild abdominal pain but tells me it is more because he is hungry and just needs to eat versus actual abdominal pain. As he did questional he hit his head and patient is slightly slow to respond to answers which might be his baseline, I did obtain a head CT. This was negative for any acute intracranial process. He has no neck pain and I do not think he requires a CT of his neck. Cardiac and infectious work-up looking for cause of his syncopal and vomiting episode is obtained. This includes a CT of the abdomen and pelvis. Patient does not have any acute process and is now eating in the room comfortably. He does not have any significant/acute laboratory abnormalities. His creatinine is 2.13 which is actually above his baseline and his bicarb is 21. His lactate is 0.2. I suspect he is slightly hemoconcentrated his hemoglobin today is 10.1 and his baseline appears to be between 7 and 8. Patient is given a liter of IV fluid and continues to be tachycardic in the emergency room. Orthostatics initially are obtained and are positive. Patient is weak on his feet. He is given a second liter of IV fluids and while his tachycardia improved he is still orthostatic positive as he goes from 159/63 with laying to 124/63 with standing however he does not have a significant change in his heart rate at this time. Given his continued weakness and orthostasis I do think he benefit from admission to the hospital. This is discussed with admitting physician, Dr. Wilhelm who is agreeable this plan of care. He does not have any ischemic EKG changes and his delta high-sensitivity troponin is normal at 9 and 9. He does not have any signs of cardiac arrhythmia on telemetry or EKG as the cause of his syncopal episode today. I do not see any acute intra-abdominal surgical process to explain his symptoms. He is tolerating p.o. in the emergency room. Lab Data Labs: Laboratory Results - last 24 hr 03/11/23 03/11/2323 13:30 13:30 13:30 WBC 6.2 RBC 3.52 L Hgb 10.1 L Hct 31.4 L MCV 89.2 MCH 28.7 MCHC 32.2 RDW Std Deviation 42.1 RDW Coeff of Mayra 12.9 Plt Count 254 MPV 8.9 Immature Gran % (Auto) 0.300 Neut % (Auto) 86.2 H Lymph % (Auto) 7.3 L [place] % (Auto) 4.2 Eos % (Auto) 1.8 Baso % (Auto) 0.2 Absolute Neuts (auto) 5.3 Absolute Lymphs (auto) 0.45 L Nucleated RBC % 0 Sodium 138 Potassium 5.0 Chloride 111 H Carbon Dioxide 21.0 Anion Gap 6 BUN 67 H Creatinine 2.13 H Estim Creat Clear Calc 33.08 Est GFR (MDRD) Af Amer 44 L Est GFR (MDRD) Non-Af 36 L BUN/Creatinine Ratio 31.5 H Glucose 236 H Lactic Acid 0.2 L Calcium 8.3 L Magnesium Total Bilirubin 0.20 AST 18 ALT 25 Alkaline Phosphatase 62 Troponin I High Sens 9 Total Protein 6.0 L Albumin 2.3 L Globulin 3.7 Albumin/Globulin Ratio 0.6 L Lipase 58 Urine Color Urine Clarity Urine pH Ur Specific [place] Urine Protein Urine Glucose (UA) Urine Ketones Urine Occult Blood Urine Nitrite Urine Bilirubin Urine Urobilinogen Ur Leukocyte Esterase Urine RBC Urine WBC Ur Squamous Epith Cells Urine Bacteria Urine Mucus 03/11/23 03/11/23 03/11/23 16:00 16:10 16:10 WBC RBC Hgb Hct MCV MCH MCHC RDW Std Deviation RDW Coeff of [place] Plt Count MPV Immature Gran % (Auto) Neut % (Auto) Lymph % (Auto) [place] % (Auto) Eos % (Auto) Baso % (Auto) Absolute Neuts (auto) Absolute Lymphs (auto) Nucleated RBC % Sodium Potassium Chloride Carbon Dioxide Anion Gap BUN Creatinine Estim Creat Clear Calc Est GFR (MDRD) Af Amer Est GFR (MDRD) Non-Af BUN/Creatinine Ratio Glucose Lactic Acid Calcium Magnesium 2.7 H Total Bilirubin AST ALT Alkaline Phosphatase Troponin I High Sens 9 Total Protein Albumin Globulin Albumin/Globulin Ratio Lipase Urine Color Yellow Urine Clarity Clear Urine pH 6.0 Ur Specific [place] 1.015 Urine Protein 500 H Urine Glucose (UA) 100 H Urine Ketones Negative Urine Occult Blood 10 H Urine Nitrite Negative Urine Bilirubin Negative Urine Urobilinogen Normal Ur Leukocyte Esterase Negative Urine RBC 0 SEEN Urine WBC 0 SEEN Ur Squamous Epith Cells 0 SEEN Urine Bacteria 0 SEEN Urine Mucus 0 SEEN Radiography Chest X-Ray - ED: 2 View, Read by ED Physician, Read by Radiologist and No Acute Disease Diagnostic Testing: Clinical Impression(s) from Imaging Studies Brain CT 03/11/23 13:10 IMPRESSION: Normal unenhanced CT scan of the brain. Electronically Signed: Jules Jacobson MD at 14:07 EDT , Chest X-Ray 03/11/23 13:55 IMPRESSION: Normal x-ray examination of the chest. Electronically Signed: Jules Jacobson MD at 14:08 EDT , Abdomen/Pelvis CT 03/11/23 14:22 IMPRESSION: No appendicitis or acute intra-abdominal findings. Electronically Signed: Ruddy Montez MD at 16:18 EDT , Rhythm Strip Rhythm Strip: Sinus Tach Rate: 110 Ectopy: None EKG Initial EKG: Attestation: I personally reviewed and interpreted this EKG as follows: Interpretation: Sinus Tachycardia Comments: Sinus tachycardia rate of 110 bpm Minimal voltage criteria for LVH Normal QRS and QTc Normal ST segments Management Discussion w/another healthcare provider: Hospitalist Discharge Plan Dx/Rx/DC Orders Clinical Impression: Syncope, Nausea & vomiting, Orthostatic dizziness, Nausea Disposition Disposition: Acute Care [facility] Discharge Date/Time: 03/11/23 22:03
[2023-03-11 16:09] LABS: Bacteria 0 SEEN /hpf (None Seen); Mucous, Urine 0 SEEN /hpf (<or=2+); Red Blood Cells-Urine 0 SEEN /hpf (0-5); Squamous Epithelial Cells - UA 0 SEEN /hpf (0-5); White Blood Cells 0 SEEN /hpf (0-5)
[2023-03-11 16:17] LABS: Color, Urine Yellow (Yellow); Glucose, Dipstick 100 mg/dl (Normal); Ketone-Dipstick Negative (Negative); Leukocyte Esterase-Dipstick Negative /ul (Negative); Nitrite-Dipstick Negative (Negative); Occult Blood-Urine 10 /ul (Negative); Protein-Dipstick 500 mg/dl (Negative); Specific Gravity, Urine 1.015 (1.002-1.030); Urine Bilirubin Dipstick Negative (Negative); Urine Clarity Clear (Clear); Urine Urobilinogen Normal (Normal)
[2023-03-11 16:32] LABS: Troponin-I HS 9 pg/mL (3.0-78.0)
[2023-03-11] MEDS: 0.9% Normal Saline 1,000 ML 999 ML IV (17:07)
--- NOTE | 2023-03-11 20:11 | PCM.HP.STD ---
HPI - General General Date of Admission: 03/11/23 Date of Service: 03/11/23 Chief Complaint: Nausea, emesis, abdominal cramping, syncopal event, weakness. HPI Narrative The patient is a 42 y/o M w/ PMHx: CKD stage IIIa, HTN, HLD, Diabetes mellitus type II with chronic neuropathy, Charcot's joint, Hx Diabetic foot infection with Hx osteomyelitis, Morbid obesity, Chronic normocytic anemia, s/p LLE BKA status, Former tobacco use, history 12/2022 admission for right lower extremity cellulitis with acute kidney injury who presents to the [facility] ED on 03/11/23 with history of increased fatigue, malaise, generalized weakness, nausea and emesis with a syncopal event although he reports feeling well when he awoke today even going to work but had onset of mild discomfort to his abdomen eventually having nausea and emesis with lightheadedness, falling backwards and unfortunately hit his head on the door jam awakening on the ground with people around him with ongoing mild stomach aching although he reports it potentially is because he could be hungry prompting eventual ED evaluation. Work-up in the ED included T98.4, heart rate 105 initially, BP 174/85, respiratory rate 16, 96% on room air, notable orthostatic vital sign, CBC with WC 6.2, he 110.1, MCV 89.2, platelet 254 with lymphopenia, CMP with chloride 111, BUN/Cr 67/2.13, glucose 236, lactic acid 0.2, troponin 9 with repeat delta 9, lipase 58, hepatic profile unremarkable, urinalysis unremarkable, CT brain with no acute intracranial findings, chest x-ray with no acute cardiopulmonary findings, CT abdomen and pelvis with no acute intra-abdominal findings, EKG with ST with no acute evidence of ischemia. In the ED patient ministered 2 L normal saline as well as Zofran 4 mg IV x1. [facility] Medical History (Updated 03/11/23 @ 20:[address] Marline Wilhelm MD) Below-knee amputation of left lower extremity Charcot's joint Chronic anemia Chronic kidney disease (CKD) stage G3a/A3, moderately decreased glomerular filtration rate (GFR) between 45-59 mL/min/1.73 square meter and albuminuria creatinine ratio greater than 300 mg/g CKD (chronic kidney disease), stage III Diabetes mellitus type 2 in obese Diabetic neuropathy History of osteomyelitis HLD (hyperlipidemia) HTN (hypertension) Hyperglycemia due to type 2 diabetes mellitus Morbid obesity Home Medications Magnesium 2 tab PO BID supplement 12/10/19 [History Last Taken Unknown] Novolin 70/30 30 - 35 units SQ QHS diabetes 12/10/19 [History Last Taken Unknown] Pantothenic Acid 1 tab PO BID supplement 12/10/19 [History Last Taken Unknown] cholecalciferol (vitamin D3) 50 mcg (2,000 unit) capsule 2,000 unit PO BID supplement 12/10/19 [History Last Taken Unknown] furosemide 20 mg tablet 60 mg PO BID 30 days #180 tabs 01/07/23 [Rx Last Taken Unknown] hydralazine 25 mg tablet 50 mg PO TID 30 days #180 tabs 01/07/23 [Rx Last Taken Unknown] potassium chloride 20 mEq oral packet 20 meq PO DAILY #30 ea 01/07/23 [Rx Last Taken Unknown] Allergy/AdvReac Type Severity Reaction Status Date / Time metformin AdvReac Abd Verified 03/11/23 12:32 cramps/diarrhea Family History no significant family his no significant family history (Patient denies any marked maternal or paternal family Hx including HD, CM, CA, CVA.) Surgical History History of surgery on lower extremity Status post left foot surgery Social History household members: spouse Smoking Status: Former smoker how long ago did patient quit smoking: Quit ~ 15 years prior to current presentation. alcohol intake: never substance use type: does not use ROS ROS Narrative Admission Review of Systems: CONSTITUTIONAL: No weight loss, fever, chills, + weakness or fatigue. HEENT: Eyes: No visual loss, blurred vision, double vision or yellow sclerae. Ears, Nose, Throat: No hearing loss, sneezing, congestion, runny nose or sore throat. SKIN: Prior cellulitis upon last presentation resolved, occasional staged ecchymoses, intertrigo. CARDIOVASCULAR: + Syncopal event/lightheadedness, no chest pain, chest pressure or chest discomfort, palpitations, edema, orthopnea. RESPIRATORY: Denies cough but dry cough occasoinally while in the room. No shortness of breath, wheezing, hemoptysis. GASTROINTESTINAL: + anorexia, nausea, emesis, abdominal cramping. No diarrhea, melena, BRBPR. GENITOURINARY: No dysuria, frequency, urgency or retention. NEUROLOGICAL: + Syncopal event, lightheadedness/dizziness, No paralysis, ataxia, numbness or tingling in the extremities, focal weakness, change in bowel or bladder control, seizure. MUSCULOSKELETAL: + muscle, back pain, joint pain or stiffness. HEMATOLOGIC: + anemia, bleeding or bruising. LYMPHATICS: No enlarged nodes. No history of splenectomy. PSYCHIATRIC: No history of depression or anxiety. ENDOCRINOLOGIC: No reports of sweating, cold or heat intolerance. No polyuria or polydipsia. ALLERGIES: No history of asthma, hives, eczema or rhinitis. Vital Signs Vital Signs Vital Signs: 03/11/23 12:33 03/11/23 12:49 03/11/23 15:03 Temperature 98.4 F Temperature Source Oral Pulse Rate 105 H 110 H Pulse Rate [Lying] Pulse Rate [Sitting (for 1 minute prior to obtaining)] Pulse Rate [Standing (for 1 minute prior to obtaining)] Respiratory Rate 16 18 Respiratory Effort Normal Non-Labored Respiratory Pattern Normal Blood Pressure 174/85 H 154/74 H Blood Pressure [Lying] Blood Pressure [Sitting (for 1 minute prior to obtaining)] Blood Pressure [Standing (for 1 minute prior to obtaining)] Blood Pressure Mean 114 100 Blood Pressure Mean [Lying] Blood Pressure Mean [Sitting (for 1 minute prior to obtaining)] Blood Pressure Mean [Standing (for 1 minute prior to obtaining)] Pulse Ox 96 95 Oxygen Delivery Method Room Air Room Air 03/11/23 15:40 03/11/23 16:11 03/11/23 17:13 Temperature 98.6 F Temperature Source Oral Pulse Rate 111 H 109 H Pulse Rate [Lying] 111 H Pulse Rate [Sitting (for 1 minute prior to obtaining)] 112 H Pulse Rate [Standing (for 1 minute prior to obtaining)] 115 H Respiratory Rate 14 17 Respiratory Effort Respiratory Pattern Blood Pressure 151/70 H 136/76 H Blood Pressure [Lying] 156/69 H Blood Pressure [Sitting (for 1 minute prior to obtaining)] 124/72 H Blood Pressure [Standing (for 1 minute prior to obtaining)] 120/72 Blood Pressure Mean 97 96 Blood Pressure Mean [Lying] 98 Blood Pressure Mean [Sitting (for 1 minute prior to obtaining)] 89 Blood Pressure Mean [Standing (for 1 minute prior to obtaining)] 88 Pulse Ox 95 94 Oxygen Delivery Method Room Air Room Air 03/11/23 18:13 03/11/23 18:42 03/11/23 19:52 Temperature Temperature Source Pulse Rate 104 H 97 Pulse Rate [Lying] 94 Pulse Rate [Sitting (for 1 minute prior to obtaining)] 93 Pulse Rate [Standing (for 1 minute prior to obtaining)] 89 Respiratory Rate 22 H 20 H Respiratory Effort Respiratory Pattern Blood Pressure 144/78 H 153/64 H Blood Pressure [Lying] 124/63 H Blood Pressure [Sitting (for 1 minute prior to obtaining)] 145/72 H Blood Pressure [Standing (for 1 minute prior to obtaining)] 159/63 H Blood Pressure Mean 100 93 Blood Pressure Mean [Lying] 83 Blood Pressure Mean [Sitting (for 1 minute prior to obtaining)] 96 Blood Pressure Mean [Standing (for 1 minute prior to obtaining)] 95 Pulse Ox 94 95 Oxygen Delivery Method Room Air Room Air Weight Weight: 300 lb 4.313 oz Body Mass Index (BMI) 56.7 Physical Exam Narrative Physical Examination: General: Awake, alert, oriented x 3 and cooperative, laying in the ED bed, fatigued appearing. Skin: Normal color, normal turgor, no icterus, no cyanosis except for significant intertrigo in the folds and occasional staged ecchymoses, abrasion. HEENT: AT/NC, EOMI, PERRLA, dry MM, no carotid bruits or JVD noted; however, very thickened neck makes evaluation difficult. Lungs: Significantly diminished, distant, mildly increased respiratory rate but no distress, habitus makes evaluation difficult, no rales, ronchi or wheezing. Heart: Improved, mildly tachycardic with regular rhythm; no gallop, rub audible. Abdomen: Soft, morbidly obese, intertrigo, no obvious tenderness to palpation, difficult to assess distention given habitus, distant bowel sounds, no obvious HSM but habitus makes this a very difficult exam. Extremities: No cyanosis, no clubbing, see skin, chronic unchanged right lower extremity swelling, status post LLE BKA. Neurological: Patient awake, alert, oriented as noted, cognitive function intact; pupils equally reactive to light and accommodation, cranial nerves II-XII grossly normal, moving all 4 extremities although limited LLE given BKA status, given acute presentation strength accordingly moderately to severely globally decreased. Psychiatric: Affect appears flat, fatigued, no acute evidence of depressive or anxiety feelings. Results Lab / Micro Data Result Diagrams: 03/11/23 13:30 03/11/23 13:30 Labs: Laboratory Results - last 24 hr 03/11/23 13:30: WBC 6.2, RBC 3.52 L, Hgb 10.1 L, Hct 31.4 L, MCV 89.2, MCH 28.7, MCHC 32.2, RDW Std Deviation 42.1, RDW Coeff of Mayra 12.9, Plt Count 254, MPV 8.9, Immature Gran % (Auto) 0.300, Neut % (Auto) 86.2 H, Lymph % (Auto) 7.3 L, [place] % (Auto) 4.2, Eos % (Auto) 1.8, Baso % (Auto) 0.2, Absolute Neuts (auto) 5.3, Absolute Lymphs (auto) 0.45 L, Nucleated RBC % 0 03/11/23 13:30: Sodium 138, Potassium 5.0, Chloride 111 H, Carbon Dioxide 21.0, Anion Gap 6, BUN 67 H, Creatinine 2.13 H, Estim Creat Clear Calc 33.08, Est GFR (MDRD) Af Amer 44 L, Est GFR (MDRD) Non-Af 36 L, BUN/Creatinine Ratio 31.5 H, Glucose 236 H, Calcium 8.3 L, Total Bilirubin 0.20, AST 18, ALT 25, Alkaline Phosphatase 62, Troponin I High Sens 9, Total Protein 6.0 L, Albumin 2.3 L, Globulin 3.7, Albumin/Globulin Ratio 0.6 L, Lipase 58 03/11/23 13:30: Lactic Acid 0.2 L 03/11/23 16:00: Urine Color Yellow, Urine Clarity Clear, Urine pH 6.0, Ur Specific Ecru 1.015, Urine Protein 500 H, Urine Glucose (UA) 100 H, Urine Ketones Negative, Urine Occult Blood 10 H, Urine Nitrite Negative, Urine Bilirubin Negative, Urine Urobilinogen Normal, Ur Leukocyte Esterase Negative, Urine RBC 0 SEEN, Urine WBC 0 SEEN, Ur Squamous Epith Cells 0 SEEN, Urine Bacteria 0 SEEN, Urine Mucus 0 SEEN 03/11/23 16:10: Troponin I High Sens [address] 03/11/23 13:10 IMPRESSION: Normal unenhanced CT scan of the brain. Electronically Signed: Jules Jacobson MD at 14:07 EDT , Chest X-Ray 03/11/23 13:55 IMPRESSION: Normal x-ray examination of the chest. Electronically Signed: Jules Jacobson MD at 14:08 EDT , Abdomen/Pelvis CT 03/11/23 14:22 IMPRESSION: No appendicitis or acute intra-abdominal findings. Electronically Signed: Ruddy Montez MD at 16:18 EDT , Assessment & Plan Assessment/Plan (1) Syncope: PLAN: Plan The patient is a 42 y/o M w/ PMHx: CKD stage IIIa, HTN, HLD, Diabetes mellitus type II with chronic neuropathy, Charcot's joint, Hx Diabetic foot infection with Hx osteomyelitis, Morbid obesity, Chronic normocytic anemia, s/p LLE BKA status, Former tobacco use, history 12/2022 admission for right lower extremity cellulitis with acute kidney injury who presents to the [facility] ED on 03/11/23 with history of increased fatigue, malaise, generalized weakness, nausea and emesis with a syncopal event although he reports feeling well when he awoke today even going to work but had onset of mild discomfort to his abdomen eventually having nausea and emesis with lightheadedness, falling backwards and unfortunately hit his head on the door jam awakening on the ground with people around him with ongoing mild stomach aching although he reports it potentially is because he could be hungry prompting eventual ED evaluation. #1. Syncopal Event potentially related to an acute viral syndrome given nausea, emesis preceding lightheadedness and dizziness with syncope with orthostasis: EKG in ED w/ ST without evidence of acute ischemia, CXR w/ no acute cardiopulmonary findings, initial trop normal and repeat delta unremarkable, CT abdomen pelvis also unremarkable. Will admit to PCU to be cautious although again potentially from viral syndrome, place on a monitored bed to assure no acute myocardial infarction with serial cardiac enzymes, EKG as needed, ECHO to be cautious altough less suspicious for cardiac etiology. Will maintain on fall precautions, obtain repeat a.m. orthostatic vital signs following overnight hydration, will have as needed antiemetic, will obtain COVID PCR and full respiratory panel to be cautious, if diarrhea onset would obtain enteric and C. difficile, PT/OT/case management consultation for discharge planning. #2. Diabetes mellitus type II with chronic neuropathy: As long as blood sugars remain appropriate will continue home insulin regimen but low threshold to hold her half dose, ADA diet, accu checks w/ ISS. #3. Chronic Kidney Disease Stage IIIa: Admission BUN/Cr 67/2.13, baseline renal function notable for chronically elevated BUN similar to this presentation, creatinine since December has primarily been 2.0 up to a max of 3.92, most recently prior to this 01/07/2023 3.13, improved, remote labs noted otherwise from 2019 and at that time patient's renal function had been 0.78, repeat BMP in AM. #4. Chronic normocytic anemia: Admission hemoglobin 10.8, elevated hemoglobin as baseline more recently through December had been 7-8, likely concentrated, will continue to trend CBC. #5. Hypertension: Continue home regimen including hydralazine, temporally holding Lasix given needed hydration as noted, PRN hydralazine. #6. Hyperlipidemia: Not on regimen, defer to outpatient. #7. Morbid Obesity: Weight loss and lifestyle changes encouraged. #8. Former tobacco use: Encourage continued tobacco cessation. #9. DVT Prophylaxis: Heparin. #10. CODE status: Patient does not have healthcare power of estate attorney nor living will in place but if needed who is present would be his decision maker. Discussed CODE status at length including difference between FULL code, DNR-CCA and DNR-CC status. Following discussions about the differences in these and he requested DNR-CCA, no intubation. Advanced Care Planning Face to Face Time: 16 minutes. Admission Evaluation Time spent evaluating chart, patient history, patient evaluation, care planning and discussion with specialists: 60 minutes. Charges/Coding Visit Charges Inpatient E&M: 39484 Init Hosp L2 Procedures Hospitalists Procedures: 64613 Advncd Care Plan 30 Min
[2023-03-11 21:26] LABS: Magnesium 2.7 mg/dL (1.6-2.6)
--- NOTE | 2023-03-11 22:15 | ECHOD_ITS ---
Reason For Study: Syncope/Near Syncope Procedure This was a 2D Doppler, Color Flow transthoracic echocardiogram. Exam performed portable in patient room. Left Ventricle Normal left ventricle. The estimated ejection fraction is 55-60 %. Right Ventricle Normal right ventricle. Normal systolic function. Atria The left atrium is mildly enlarged. Normal right atrium. Mitral Valve The mitral valve is structurally normal. No prolapse or stenosis seen. Mild (1+) mitral valve insufficiency. Tricuspid Valve Normal tricuspid valve. Mild tricuspid valve insufficiency. Aortic Valve Normal aortic valve. Pulmonic Valve The pulmonic valve is not well visualized. Great Vessels Normal aortic root. Pericardium/Pleural No pericardial effusion. MMode/2D Measurements & Calculations LVIDd: 5.6 cm IVSd: 1.2 cm Ao root diam: 2.9 cm LVIDs: 3.6 cm LVPWd: 1.2 cm RVDd: 3.5 cm FS: 36.2 % LAV(MOD-bp): 60.5 ml LVAd ap4: 31.2 cm2 SV(MOD-sp4): 55.5 ml LAV(MOD-bp) Indexed: 26.9 ml/m2 LVLd ap4: 9.1 cm LAV(MOD-sp2): 63.4 ml EDV(MOD-sp4): 88.8 ml LAV(MOD-sp4): 55.8 ml EDV(sp4-el): 91.3 ml LVAs ap4: 16.7 cm2 LVLs ap4: 7.3 cm ESV(MOD-sp4): 33.3 ml ESV(sp4-el): 32.6 ml EF(MOD-sp4): 62.5 % EF(sp4-el): 64.3 % SV(sp4-el): 58.7 ml LA A4 area: 20.6 cm2 LA dimension(2D): 4.6 cm RA A4 area: 10.0 cm2 Time Measurements MV dec time: 0.23 sec Doppler Measurements & Calculations MV E max hermann: 97.9 cm/sec Lat Peak E' Hermann: 15.9 cm/sec Med Peak E' Hermann: 10.1 cm/sec MV A max hermann: 105.2 cm/sec E/E' lat: 6.1 E/E' med: 9.7 MV E/A: 0.93 Ao V2 max: 186.5 cm/sec LV V1 max: 131.3 cm/sec MV dec slope: 420.8 cm/sec2 Ao max P.9 mmHg LV V1 max P.9 mmHg Ao V2 mean: 146.2 cm/sec Ao mean P.2 mmHg Ao V2 VTI: 40.4 cm PA V2 max: 142.5 cm/sec TR max hermann: 302.9 cm/sec TR max P.7 mmHg ECHO/Echo Complete Interpretation Summary The estimated ejection fraction is 55-60 %. No previous study to compare. Ordering Physician: Marline Wilhelm Referring Physician: Casey Ghotra Performed By: Luisa Jeffrey, RDCS, RVT
[2023-03-11 22:43] LABS: Procalcitonin 0.29 ng/mL (0.00-0.09)
[2023-03-11 22:53] LABS: Troponin-I HS 11 pg/mL (3.0-78.0)
[2023-03-12] VITALS (7 sets, daily range): BP systolic 125–159; BP diastolic 48–78; PULSE 81–95; RESP 18; TEMP 36.7; O2SAT 96–98; BMI 49.8
[2023-03-12] MEDS: 0.9% Normal Saline 1,000 ML 150 ML IV ×2 (00:10→06:39)
[2023-03-12] MEDS: Menthol/Lanolin/Calamine/Znox 113 GM Tube 1 APPLIC TOPICAL (00:10)
[2023-03-12] MEDS: Heparin Injection (Vial) 5,000 UNIT/ML VIAL 5000 UNIT SC ×2 (00:13→11:36)
[2023-03-12] MEDS: Nystatin Powder 15gm Bottle 1 APPLIC TOPICAL ×2 (00:14→06:42)
[2023-03-12] MEDS: Insulin Human 75/25 Kwickpen 30 UNIT SC (00:41)
[2023-03-12] MEDS: hydrALAZINE 50 MG Tablet PO ×2 (00:46→06:39)
[2023-03-12 01:10] LABS: Bedside Glucose 302 mg/dL (74-106)
[2023-03-12 01:27] LABS: Troponin-I HS 11 pg/mL (3.0-78.0)
[2023-03-12 04:00] LABS: Absolute Lymphocyte Count 0.74 X10^3/uL (0.83-4.51); Absolute Neutrophil Count 3.3 X10^3/uL (2.0-7.7); Basophil# 0.01 X10^3/uL; Basophil% 0.2 % (0-1); Eosinophil# 0.08 X10^3/uL; Eosinophils% 1.8 % (0-5); Hematocrit 27.5 % (40-54); Hemoglobin 8.7 g/dL (13.0-16.5); Lymphocyte # 0.74 X10^3/ul (0.83-4.51); Lymphocyte % 16.4 % (19-41); Mean Corp Hgb Conc 31.6 g/dL (32-36); Mean Corpuscular Hgb 28.8 pg (27.0-32.0); Mean Corpuscular Volume 91.1 fL (80-94); Mean Platelet Vol. 8.9 fl (6.2-12.0); Monocyte# 0.33 X10^3/uL; Monocyte% 7.3 % (0-10); NRBC Flagged by Analyzer 0 % (0-5); Neutrophil # 3.34 X10^3/uL (2.7-7.7); Neutrophil % 74.1 % (47-70); Platelet Count 203 K/mm3 (150-450); RBC Distribution Width SD 43.1 fl (35.1-43.9); Red Blood Count 3.02 M/mm3 (4.6-6.2); White Blood Count 4.5 K/mm3 (4.4-11.0)
[2023-03-12 04:54] LABS: ALB/GLOB Ratio 0.6 RATIO (0.9-2.4); AST(SGOT) 14 U/L (15-37); Alanine Aminotransfer ALT/SGPT 21 U/L (16-61); Alkaline Phosphatase 52 U/L (45-117); Anion Gap 6 (5-15); BUN 66 mg/dL (7-18); Calcium,Total 7.5 mg/dL (8.5-10.1); Chloride 114 mmol/L (98-107); Creatinine, Serum 2.54 mg/dL (0.70-1.30); EST Glomerular Filtration Rate 30 mL/min (>60); Est Glom Filt Rate - Afr Amer 36 mL/min (>60); Estimated Creatinine Clearance 32.62 ml/min; Globulin 3.2 g/dL (2.2-4.2); Glucose 251 mg/dL (74-106); Protein, Total 5.2 g/dL (6.4-8.2); Sodium Level 140 mmol/L (136-145); Troponin-I HS 11 pg/mL (3.0-78.0)
[2023-03-12] MEDS: Insulin Lispro 100 UNIT/ML INSULN.PEN SC ×2 (06:53→11:41)
[2023-03-12 07:15] LABS: Bedside Glucose 159 mg/dL (74-106)
--- NOTE | 2023-03-12 09:14 | DCINST_ITS ---
Discharge Instructions Diet Discharge Diet: Low fat / Low cholesterol and Carb Control Diet Activity Discharge Activity: Return to Normal Activity Dressing / Incision Call your doctor if you observe: Fever of 101 or Higher, Shortness of breath, Dizziness, Fainting spells, Swelling in the ankles, Chest pain and Increased palpitations (irregular heartbeat) Follow Up Care Test Results: Test results from this visit will be discussed in further detail at your follow- up appointment, if applicable. Discharge Plan Admission Admit Date/Time: 03/11/23 20:16 Attending Provider: Abel Bruce Primary Care Provider: Diego Ghotra Consulting Providers: Marline Wilhelm Instructions Additional Instructions / Restrictions: Follow-up with your PCP in 3 to 5 days to obtain outpatient lab work to make sure that your hemoglobin and creatinine are stable Discharge Orders/Prescriptions Prescriptions: Continued cholecalciferol (vitamin D3) 2,000 UNIT capsule 2,000 unit PO BID Magnesium 2 tab PO BID Novolin 70/30 30 - 35 units SQ QHS Rx Instructions: PER PATIENT'S ONLY SLIDING SCALE Pantothenic Acid 1 tab PO BID hydralazine 25 mg Tablet 50 mg PO TID 30 Days Qty: 180 0RF potassium chloride 20 mEq packet 20 meq PO DAILY Qty: 30 0RF Held furosemide 20 mg tablet 60 mg PO BID 30 Days Qty: 180 0RF Hold Instructions: Resume on 03/13/23. Referrals / Follow Up: Diego Ghotra DO [Primary Care Provider] - Within 1 Week Disposition Disposition (needs filled in before D/C Order can be placed): Home, Self Care
--- NOTE | 2023-03-12 09:30 | CASEMGMT ---
Addendum entered by Kristie Abebe 03/12/23 10:53: COLTON Marroquin, made aware of below and that pt would like further resources for counseling services. Attempted to contact RNMeaghan, to inform her pt not to discharge until SW has met w/pt. No answer. all source intelligence made aware. Original Note: COSTA RUIZ NOTE: Pt being discharged today. RN CM to room. Pt sitting up in chair in room. @ bedside. Introduced self and role. Pt states has all the DME needed, is supportive, and he has no concerns w/going home. He did share w/COSTA RUIZ that he is having a difficult time w/ some gnosticist things, stating he has some important decisions to make and through this process, may end up being shunned. Pt states is considering seeing a counselor, but would prefer to see someone who speaks his primary language. COSTA RUIZ discussed [facility] in [facility]. Pt states he is familiar w/[facility] and may consider going there. He also discussed a possible option of going somewhere out of state, but he has not decided yet. COSTA RUIZ offered for SW to provide other resources/counseling services and pt states would like that. He denies further d/c planning needs or concerns. Timbo BENEDICT RN, CM
--- NOTE | 2023-03-12 10:26 | DS.PCM_ITS ---
Providers Date of Admission: 03/11/23 Primary Care Physician: Dr. Diego Ghotra DO Reason For Visit: N/V SYNCOPE Diagnosis Discharge Diagnosis (1) Syncope: Status: Acute Code(s): R55 - Syncope and collapse Medications at Discharge Home Medications Magnesium 2 tab PO BID supplement 12/10/19 Novolin 70/30 30 - 35 units SQ QHS diabetes 12/10/19 Pantothenic Acid 1 tab PO BID supplement 12/10/19 cholecalciferol (vitamin D3) 50 mcg (2,000 unit) capsule 2,000 unit PO BID supplement 12/10/19 furosemide 20 mg tablet 60 mg PO BID 30 days #180 tabs 01/07/23 hydralazine 25 mg tablet 50 mg PO TID 30 days #180 tabs 01/07/23 potassium chloride 20 mEq oral packet 20 meq PO DAILY #30 ea 01/07/23 Hospital Course Operations None Procedures None Summary of Care Provided Minutes Spent on Discharge: 33 Hospital Course: Per HPI: The patient is a 42 y/o M w/ PMHx: CKD stage IIIa, HTN, HLD, Diabetes mellitus type II with chronic neuropathy, Charcot's joint, Hx Diabetic foot infection with Hx osteomyelitis, Morbid obesity, Chronic normocytic anemia, s/p LLE BKA status, Former tobacco use, history 12/2022 admission for right lower extremity cellulitis with acute kidney injury who presents to the [facility] ED on 03/11/23 with history of increased fatigue, malaise, generalized weakness, nausea and emesis with a syncopal event although he reports feeling well when he awoke today even going to work but had onset of mild discomfort to his abdomen eventually having nausea and emesis with lightheadedness, falling backwards and unfortunately hit his head on the door jam awakening on the ground with people around him with ongoing mild stomach aching although he reports it potentially is because he could be hungry prompting eventual ED evaluation. Work-up in the ED included T98.4, heart rate 105 initially, BP 174/85, respiratory rate 16, 96% on room air, notable orthostatic vital sign, CBC with WC 6.2, he 110.1, MCV 89.2, platelet 254 with lymphopenia, CMP with chloride 111, BUN/Cr 67/2.13, glucose 236, lactic acid 0.2, troponin 9 with repeat delta 9, lipase 58, hepatic profile unremarkable, urinalysis unremarkable, CT brain with no acute intracranial findings, chest x-ray with no acute cardiopulmonary findings, CT abdomen and pelvis with no acute intra-abdominal findings, EKG with ST with no acute evidence of ischemia.? In the ED patient ministered 2 L normal saline as well as Zofran 4 mg IV x1. Hospital Course: 1. Vasovagal syncope due to nausea and vomiting?42-year-old male presented to the hospital with vasovagal syncope, he states that he was feeling well when he went to work but then at work started having mild abdominal pain and felt nauseated. In the process of having an episode of emesis he started to blackout and passed out and hit his head. CT of his brain was unremarkable and CT of his abdomen and pelvis was normal. This is likely related to infectious gastritis, orthostatic vital signs were unremarkable on admission. He did receive some fluid and states that he has not been eating or drinking very well for the last couple of days. I do recommend that he hold his Lasix for at least another 24 hours and can restart tomorrow or Tuesday at home. He denies any nausea or vomiting today states that his abdominal pain is significantly improved and says that he has been able to ambulate around the room without any dizziness. I discussed with him the plan for discharge today and he expressed understanding of the risk benefits of going home and would want to go home today. I discussed with him that there is an echo pending but he does not seem interested in w aiting. I discussed with him the need to stay hydrated while at home is well as eating. I do recommend he follow-up with his PCP in 3 to 5 days for outpatient lab work and follow-up. 2. Type 2 diabetes with chronic neuropathy, chronic kidney disease stage IIIa hypertension, hyperlipidemia, morbid obesity, are all chronic medical conditions which complicate his care. His home medications were continued where appropriate Physical Exam Narrative General: Alert, Oriented x3, Cooperative, No apparent distress, appears fatigued states he did not sleep well HEENT: Atraumatic, PERRLA, EOMI, Normocephalic Oral: Moist Mucosa Neck: Supple, No JVD Lungs: Clear to auscultation, Normal air movement, No rhonchi, No wheeze, No rales Cardiovascular: Regular rate, Regular Rhythm, Normal S1, Normal S2, No murmurs Abdomen: Soft, Non Tender, Non-Distended, No Hepato-splenomegaly Extremities: No edema, Capillary Refill Less than 3 Seconds Skin: No rashes, No breakdown Musculoskeletal: No Tenderness to Palpation of Joints or Extremities Neurological: Cranial nerves II-XII grossly intact, Motor Exam 5/5 strength throughout, Sensory exam intact to light touch and pain Psych/Mental Status: Normal Affect, Appropriate Weight / BMI Weight Weight: 299 lb 2.676 oz Body Mass Index (BMI) 49.8 ABG / Lab / Microbiology Data Result Diagrams: 03/12/23 03:50 03/12/23 03:50 Laboratory: Laboratory Results - last 24 hr 03/11/23 13:30: WBC 6.2, RBC 3.52 L, Hgb 10.1 L, Hct 31.4 L, MCV 89.2, MCH 28.7, MCHC 32.2, RDW Std Deviation 42.1, RDW Coeff of Mayra 12.9, Plt Count 254, MPV 8.9, Immature Gran % (Auto) 0.300, Neut % (Auto) 86.2 H, Lymph % (Auto) 7.3 L, [place] % (Auto) 4.2, Eos % (Auto) 1.8, Baso % (Auto) 0.2, Absolute Neuts (auto) 5.3, Absolute Lymphs (auto) 0.45 L, Nucleated RBC % 0 03/11/23 13:30: Sodium 138, Potassium 5.0, Chloride 111 H, Carbon Dioxide 21.0, Anion Gap 6, BUN 67 H, Creatinine 2.13 H, Estim Creat Clear Calc 33.08, Est GFR (MDRD) Af Amer 44 L, Est GFR (MDRD) Non-Af 36 L, BUN/Creatinine Ratio 31.5 H, Glucose 236 H, Calcium 8.3 L, Total Bilirubin 0.20, AST 18, ALT 25, Alkaline Phosphatase 62, Troponin I High Sens 9, Total Protein 6.0 L, Albumin 2.3 L, Globulin 3.7, Albumin/Globulin Ratio 0.6 L, Lipase 58 03/11/23 13:30: Lactic Acid 0.2 L 03/11/23 16:00: Urine Color Yellow, Urine Clarity Clear, Urine pH 6.0, Ur Specific [place] 1.015, Urine Protein 500 H, Urine Glucose (UA) 100 H, Urine Ketones Negative, Urine Occult Blood 10 H, Urine Nitrite Negative, Urine Bilirubin Negative, Urine Urobilinogen Normal, Ur Leukocyte Esterase Negative, Urine RBC 0 SEEN, Urine WBC 0 SEEN, Ur Squamous Epith Cells 0 SEEN, Urine Bacteria 0 SEEN, Urine Mucus 0 SEEN 03/11/23 16:10: Troponin I High Sens 9 03/11/23 16:10: Magnesium 2.7 H 03/11/23 20:46: COVID-19 (MARNI) Negative 03/11/23 21:55: Procalcitonin 0.29 H 03/11/23 21:55: Troponin I High Sens 11 03/12/23 00:38: POC Glucose 302 H 03/12/23 00:55: Troponin I High Sens 11 03/12/23 03:50: WBC 4.5, RBC 3.02 L, Hgb 8.7 L, Hct 27.5 L, MCV 91.1, MCH 28.8, MCHC 31.6 L, RDW Std Deviation 43.1, RDW Coeff of [place] 13.0, Plt Count 203, MPV 8.9, Immature Gran % (Auto) 0.200, Neut % (Auto) 74.1 H, Lymph % (Auto) 16.4 L, [place] % (Auto) 7.3, Eos % (Auto) 1.8, Baso % (Auto) 0.2, Absolute Neuts (auto) 3.3, Absolute Lymphs (auto) 0.74 L, Nucleated RBC % 0 03/12/23 03:50: Sodium 140, Potassium 5.0, Chloride 114 H, Carbon Dioxide 20.0 L , Anion Gap 6, BUN 66 H, Creatinine 2.54 H, Estim Creat Clear Calc 32.62, Est GFR (MDRD) Af Amer 36 L, Est GFR (MDRD) Non-Af 30 L, BUN/Creatinine Ratio 26.0 H , Glucose 251 H, Calcium 7.5 L, Total Bilirubin 0.20, AST 14 L, ALT 21, Alkaline Phosphatase 52, Troponin I High Sens 11, Total Protein 5.2 L, Albumin 2.0 L, Globulin 3.2, Albumin/Globulin Ratio 0.6 L 03/12/23 06:52: POC Glucose 159 H Microbiology: Microbiology 03/11/23 20:46 Mucosa - Nasopharyngeal Respiratory Panel (PCR) - Final Radiography Diagnostic Testing: Radiology Impression Brain CT 03/11/23 13:10 IMPRESSION: Normal unenhanced CT scan of the brain. Electronically Signed: Jules Jacobson MD at 14:07 EDT , Chest X-Ray 03/11/23 13:55 IMPRESSION: Normal x-ray examination of the chest. Electronically Signed: Jules Jacobson MD at 14:08 EDT , Abdomen/Pelvis CT 03/11/23 14:22 IMPRESSION: No appendicitis or acute intra-abdominal findings. Electronically Signed: Ruddy Montez MD at 16:18 EDT , D/C Instructions Discharge Diet: Low fat / Low cholesterol and Carb Control Diet Call your doctor if you observe: Fever of 101 or Higher, Shortness of breath, Dizziness, Fainting spells, Swelling in the ankles, Chest pain and Increased palpitations (irregular heartbeat) Meaningful Use Info Meaningful Use Diagnoses (Choose all that apply): None applicable Discharge Plan Admission Admit Date/Time: 03/11/23 20:16 Attending Provider: Abel Bruce Primary Care Provider: Diego Ghotra Consulting Providers: Marline Wilhelm Instructions Additional Instructions / Restrictions: Follow-up with your PCP in 3 to 5 days to obtain outpatient lab work to make sure that your hemoglobin and creatinine are stable Discharge Orders/Prescriptions Prescriptions: Continued cholecalciferol (vitamin D3) 2,000 UNIT capsule 2,000 unit PO BID Magnesium 2 tab PO BID Novolin 70/30 30 - 35 units SQ QHS Rx Instructions: PER PATIENT'S ONLY SLIDING SCALE Pantothenic Acid 1 tab PO BID hydralazine 25 mg Tablet 50 mg PO TID 30 Days Qty: 180 0RF potassium chloride 20 mEq packet 20 meq PO DAILY Qty: 30 0RF Held furosemide 20 mg tablet 60 mg PO BID 30 Days Qty: 180 0RF Hold Instructions: Resume on 03/13/23. Referrals / Follow Up: Diego Ghotra DO [Primary Care Provider] - Within 1 Week Disposition Disposition (needs filled in before D/C Order can be placed): Home, Self Care Charges/Coding Visit Charges Inpatient E&M: 94188 Disch Hosp >30min
[2023-03-12] MEDS: Potassium Chloride Oral Tablet 20 MEQ PO (11:36)
[2023-03-12] MEDS: Aspirin 81 MG TAB.CHEW PO (11:36)
--- NOTE | 2023-03-12 13:04 | CASEMGMT ---
Social Work SW met with patient and patient's and introduced herself and role as [facility] Sales Promotion Coordinator. Patient agreeable to speak to Social work with present. SW assisted patient in completing [facility] assessment. Patient reports steady living arrangement with no problems, assess to transportation via horse and buggy or contacting a taxi driver, no food insecurities, patient does not utilize utilities in their home, and does not need resources for safety needs. Patient explained recent conflict with the [employer] philip and ministers, explaining they want him to lie and he refuses. 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 Patient recognizes the negative impact the stress has been causing on the patient mentally and physically and was open to discussing counseling services. Patient interested in outpatient at [facility] but has also been discussing inpatient stay at [facility] in [place] as the patient's bosses' had positive experiences there. Patient reports no needs for resources at this time to address concerns with philip. SW inquired about having [facility] Liaison contact the patient to further discuss available services, patient in agreement and verified phone number. Email sent to Rhonda Garcia for patient follow up. Cara Wayne HIMS MANAGER, [place]
[2023-03-12 13:30] LABS: Bedside Glucose 217 mg/dL (74-106)
== END 2023-03-12 09:16 | disposition home or self-care (01) ==
LOC: ED 13:14 → PCU 21:33
PROVIDERS: Admitting Provider Family Medicine; Emergency Provider Emergency Medicine; PCP Family Medicine; Visit Provider Family Medicine
DX: R55 Syncope and collapse (principal); E11.22 Type 2 diabetes mellitus with diabetic chronic kidney disease; E11.40 Type 2 diabetes mellitus with diabetic neuropathy, unspecified; E66.01 Morbid (severe) obesity due to excess calories; Z68.42 Body mass index [BMI] 45.0-49.9, adult; Z79.4 Long term (current) use of insulin; N18.31 Chronic kidney disease, stage 3a; E78.5 Hyperlipidemia, unspecified; Z87.891 Personal history of nicotine dependence; I12.9 Hypertensive chronic kidney disease with stage 1 through stage 4 chronic kidney disease, or unspecified chronic kidney disease; R42 Dizziness and giddiness; Z79.899 Other long term (current) drug therapy; R11.2 Nausea with vomiting, unspecified
CPT/HCPCS: 36415; 70450; 71046; 74176; 80053; 81001; 82962; 83605; 83690; 83735; 84145; 84484; 85025; 87633; 87635; 93005; 93306; 96361; 96372; 96374; 96376; 99221; 99285; J7030; A4216; G0378; J2405; U0005